=== PATIENT | female | born 1930 | race Two or more races ===

== ENCOUNTER 2016-12-28 05:47 | Inpatient (IN) | payer MEDICARE, OTHER ==
[~2016-12-28] VITALS: Ht 160 cm; Wt 61.5 kg
[2016-12-28] VITALS (17 sets, daily range): BP systolic 137–194; BP diastolic 65–95
[~2016-12-28 05:47] MED LIST: ACET-704 PO; AMIT25TA PO; ANAS1TAB3 PO; ASPI-482 PO; CALC1TAB PO; CLIN300C86 PO; CLOP75TA PO; DOCU100T5 PO; FAMO40TA57 PO; FERR325C PO; FURO-69 PO; INSU100V31 SQ; INSU100V8 SQ; LEVO50TA PO; LINA5TAB PO; LINE600T PO; LISI2.5T PO; LORA10TA3 PO; METF500T4 PO; MUPI15CR TP; PREG50CA PO
[2016-12-28] MEDS ORDERED: IV NORMAL SALINE 1000ML BAG 1,000 ML IV SCH (06:15)
--- NOTE | 2016-12-28 06:17 | PHYS DOC ---
Past Medical History Past Medical History: Arthritis, Cancer, Diabetes-Type II, Hyperthyroid Additional Past Medical Histor: PVD, glaucoma Past Surgical History: Cholecystectomy Additional Past Surgical Histo: Lt mastectomy, stents to bilat LE, toe amputations both feet Alcohol Use: None Drug Use: None Adult General Chief Complaint Chief Complaint: SHORTNESS OF BREATH HPI HPI Patient is a 86 year old female who presents with complaint of shortness of breath that started suddenly this morning. Patient came to the emergency department by EMS. The patient states that the symptoms came on suddenly. Patient has not had any fevers or productive cough. Patient is currently having significant difficulty breathing. Patient denies any chest pain. Patient has history of type 2 diabetes mellitus, peripheral vascular disease, and history of recent myocardial infarction. Patient is also on Lasix therapy which she has been receiving for the past 6 months. Patient has had increasing swelling in the lower extremities over the past few days. Patient has not had any recent medication changes. Patient's symptoms worsen when she lays flat. Review of Systems Review of Systems Constitutional: Denies fever or chills [] Eyes: Denies change in visual acuity, redness, or eye pain [] HENT: Denies nasal congestion or sore throat [] Respiratory: Shortness of breath, orthopnea [] Cardiovascular: Edema, denies chest pain [] GI: Denies abdominal pain, nausea, vomiting, bloody stools or diarrhea [] : Denies dysuria or hematuria [] Musculoskeletal: Denies back pain or joint pain [] Integument: Denies rash or skin lesions [] Neurologic: Denies headache, focal weakness or sensory changes [] Current Medications Current Medications Current Medications Medications (Trade) Dose Ordered Sig/Iftikhar Start Time Stop Time Status Last Admin Dose Admin Furosemide (Lasix) 80 mg 1X ONCE 12/28/16 06:30 12/28/16 06:31 DC 12/28/16 06:47 80 MG Nitroglycerin/ Dextrose (Nitroglycerin Drip) 250 ml @ 0 mls/hr CONT PRN 12/28/16 06:15 12/28/16 06:48 0 MLS/HR Sodium Chloride 1,000 ml @ 100 mls/hr Q10H 12/28/16 06:15 12/28/16 16:14 12/28/16 06:47 100 MLS/HR Allergies Allergies Allergies Coded Allergies Type Severity Reaction Last Updated Verified No Known Drug Allergies 11/21/15 No Physical Exam Physical Exam Constitutional: Alert, afebrile, appears in mild to moderate respiratory distress. [] HENT: Normocephalic, atraumatic, bilateral external ears normal, oropharynx moist, no oral exudates, nose normal. [] Eyes: PERRLA, EOMI, conjunctiva normal, no discharge. [] Neck: Normal range of motion, no tenderness, supple, no stridor. [] Cardiovascular: Tachycardia, regular rhythm, no murmur [] Lungs & Thorax: Mild to moderate restrictive movement bilaterally, rales bilaterally, no wheezes [] Abdomen: Bowel sounds normal, soft, no tenderness, no masses, no pulsatile masses. [] Skin: Warm, dry, no erythema, no rash. [] Back: No tenderness, no CVA tenderness. [] Extremities: No tenderness, no cyanosis, no clubbing, ROM intact, 2+ pitting edema in the bilateral lower extremities. [] Neurologic: Alert and oriented X 3, normal motor function, normal sensory function, no focal deficits noted. [] Current Patient Data Vital Signs Vital Signs Date Time Temp Pulse Resp B/P Pulse Ox O2 Delivery O2 Flow Rate FiO2 12/28/16 06:11 98.3 97 32 188/103 91 Nasal Cannula 2 98.3 Lab Values Laboratory Tests Test 12/28/16 06:00 12/28/16 06:10 12/28/16 06:30 White Blood Count 13.3x10^3/uL (4.0-11.0) H Red Blood Count 4.11x10^6/uL (3.50-5.40) Hemoglobin 11.1g/dL (12.0-15.5) L Hematocrit 34.7% (36.0-47.0) L Mean Corpuscular Volume 84fL (79-100) Mean Corpuscular Hemoglobin 27pg (25-35) Mean Corpuscular Hemoglobin Concent 32g/dL (31-37) Red Cell Distribution Width 17.0% (11.5-14.5) H Platelet Count 352x10^3/uL (140-400) Neutrophils (%) (Auto) 84% (31-73) H Lymphocytes (%) (Auto) 9% (24-48) L Monocytes (%) (Auto) 5% (0-9) Eosinophils (%) (Auto) 2% (0-3) Basophils (%) (Auto) 1% (0-3) Neutrophils # (Auto) 11.2x10^3uL (1.8-7.7) H Lymphocytes # (Auto) 1.2x10^3/uL (1.0-4.8) Monocytes # (Auto) 0.7x10^3/uL (0.0-1.1) Eosinophils # (Auto) 0.2x10^3/uL (0.0-0.7) Basophils # (Auto) 0.1x10^3/uL (0.0-0.2) Sodium Level 137mmol/L (136-145) Potassium Level 4.3mmol/L (3.5-5.1) Chloride Level 102mmol/L (98-107) Carbon Dioxide Level 28mmol/L (21-32) Anion Gap 7 (6-14) Blood Urea Nitrogen 21mg/dL (7-20) H Creatinine 0.8mg/dL (0.6-1.0) Estimated GFR (Cockcroft-Gault) 68.3 BUN/Creatinine Ratio 26 (6-20) H Glucose Level 296mg/dL (70-99) H Calcium Level 9.2mg/dL (8.5-10.1) Total Bilirubin 0.4mg/dL (0.2-1.0) Aspartate Amino Transferase (AST) 19U/L (15-37) Alanine Aminotransferase (ALT) 25U/L (14-59) Alkaline Phosphatase 138U/L (46-116) H Creatine Kinase 61U/L (26-192) Creatine Kinase MB (Mass) 1.4ng/mL (0.0-3.6) Creatine Kinase MB Relative Index % (0-4) Troponin I Quantitative 0.119ng/mL (0.000-0.055) JF-Zsn-O-Type Natriuretic Peptide 7778pg/mL (0-449) H Total Protein 7.4g/dL (6.4-8.2) Albumin 2.8g/dL (3.4-5.0) L Albumin/Globulin Ratio 0.6 (1.0-1.7) L O2 Saturation 93% (92-99) Arterial Blood pH 7.47 (7.35-7.45) H Arterial Blood pCO2 at Patient Temp 32mmHg (35-46) L Arterial Blood pO2 at Patient Temp 66mmHg (65-108) Arterial Blood HCO3 22mmol/L (21-28) Arterial Blood Base Excess -0mmol/L (-3-3) FiO2 32 Influenza Type A Antigen Negative (NEGATIVE) Influenza Type B Antigen Negative (NEGATIVE) Laboratory Tests 12/28/16 06:00 Laboratory Tests 12/28/16 06:00 EKG EKG Interpreted by me: Heart rate 98, sinus tachycardia, normal intervals, normal axis, no acute ST/T-wave abnormalities present [] Radiology/Procedures Radiology/Procedures [facility] [address] [place] [address] IMAGING REPORT Signed PATIENT: LUCI PALMER ACCOUNT: [id number] : 1930 LOCATION: ED HOLD AGE: 86 SEX: F EXAM STATUS: ADM IN ORD. PHYSICIAN: ARGENTINA MCNAMARA MD REASON: shortness of breath PROCEDURE: PORTABLE CHEST 1V Single view chest History:shortness of breath . An AP view of the chest is submitted. Comparison: 12/10/2016. Findings: There has been development of patchy airspace opacity at bilateral lung bases with increased interstitial opacity, also suspected small right pleural effusion. Pericardial cardiac silhouette is similar. There is atherosclerotic calcification near aortic arch. Central pulmonary vasculature is more prominent. Impression: There has been development of bibasilar airspace opacity greater on the right which may be due to edema, also likely increased interstitial edema and small right pleural effusion. Constellation of findings could be due to left ventricular failure. DICTATED and SIGNED BY: YU SOLOMON MD DATE: 12/28/16 0732 CC: ARGENTINA MCNAMARA MD; SAM ALEXANDER MD ~ [] Course & Med Decision Making Course & Med Decision Making Pertinent Labs and Imaging studies reviewed. (See chart for details) Patient was started on an IV nitroglycerin drip and given 80 mg of IV Lasix. On reevaluation, patient's respiratory distress has improved. Patient's chest x- rays consistent with acute on chronic congestive heart failure. The patient will need to be admitted for diuresis and blood pressure control. I spoke with Dr. Trujillo who is on-call for Dr. Alexander and he accepted care of patient in hospital. Critical care time excluding procedures: 45 minutes Dragon Disclaimer Dragon Disclaimer This electronic medical record was generated, in whole or in part, using a voice recognition dictation system. Departure Departure Impression: Primary Impression: Acute on chronic congestive heart failure Additional Impressions: Pulmonary edema Acute respiratory distress Hypoxia Malignant hypertension Type 2 diabetes mellitus Severe protein-calorie malnutrition Disposition: ADMITTED INPATIENT Admitting Physician: Sam Alexander Condition: GUARDED Referrals: SAM ALEXANDER MD (PCP) Problem Qualifiers Primary Impression: Acute on chronic congestive heart failure Congestive heart failure type: unspecified congestive heart failure type Qualified Code: I50.9 - Heart failure, unspecified Additional Impressions: Pulmonary edema Chronicity: acute Qualified Code: J81.0 - Acute pulmonary edema Type 2 diabetes mellitus Diabetes mellitus complication status: with hyperglycemia Diabetes mellitus mcc insulin use: unspecified predatory animal exterminator insulin use status Qualified Code : E11.65 - Type 2 diabetes mellitus with hyperglycemia ARGENTINA MCNAMARA MD Dec 28, 2016 06:17
[2016-12-28 06:29] LABS: BASO # 0.1 x10^3/uL (0.0-0.2); BASO % 1 % (0-3); EOS % 2 % (0-3); HEMATOCRIT 34.7 % (36.0-47.0); HEMOGLOBIN 11.1 g/dL (12.0-15.5); LYMPH # 1.2 x10^3/uL (1.0-4.8); LYMPH % 9 % (24-48); MEAN CORPUSCULAR HEMOGLOBIN 27 pg (25-35); MEAN CORPUSCULAR HGB CONC 32 g/dL (31-37); MEAN CORPUSCULAR VOLUME 84 fL (79-100); MONO % 5 % (0-9); NEUT % 84 % (31-73); PLATELET COUNT 352 x10^3/uL (140-400); RED BLOOD COUNT 4.11 x10^6/uL (3.50-5.40); WHITE BLOOD COUNT 13.3 x10^3/uL (4.0-11.0)
[2016-12-28] MEDS ORDERED: FUROSEMIDE 40 MG/4 ML VIAL IVP ONE ×2 (06:30→23:15)
[2016-12-28 06:34] LABS: CALCIUM 9.2 mg/dL (8.5-10.1); CREATININE 0.8 mg/dL (0.6-1.0); GFR 68.3; POTASSIUM 4.3 mmol/L (3.5-5.1)
[2016-12-28 06:38] LABS: PCO2 ABG 32 mmHg (35-46); PH ABG 7.47 (7.35-7.45)
[2016-12-28 06:39] LABS: ALLEN TEST positive; HCO3 ABG 22 mmol/L (21-28); PO2 ABG 66 mmHg (65-108); SAT O2 ABG 93 % (92-99)
[2016-12-28 06:40] LABS: FIO2 ABG 32
[2016-12-28 06:41] LABS: ALBUMIN 2.8 g/dL (3.4-5.0); ALBUMIN/GLOBULIN RATIO 0.6 (1.0-1.7); TOTAL BILIRUBIN 0.4 mg/dL (0.2-1.0); TOTAL PROTEIN 7.4 g/dL (6.4-8.2)
[2016-12-28] MEDS ORDERED: ONDANSETRON PF 4 MG/2 ML VIAL. IV PRN (06:45)
[2016-12-28] MEDS ORDERED: ACETAMINOPHEN 325 MG TABLET. PO PRN (06:45)
[2016-12-28] MEDS: NITROGLYCERIN PREMIX 250 ML IV PRN (06:48)
[2016-12-28 06:50] LABS: CKMB MASS 1.4 ng/mL (0.0-3.6); CREATINE KINASE 61 U/L (26-192)
--- NOTE | 2016-12-28 07:37 | RAD ---
Single view chest History:shortness of breath . An AP view of the chest is submitted. Comparison: 12/10/2016. Findings: There has been development of patchy airspace opacity at bilateral lung bases with increased interstitial opacity, also suspected small right pleural effusion. Pericardial cardiac silhouette is similar. There is atherosclerotic calcification near aortic arch. Central pulmonary vasculature is more prominent. Impression: There has been development of bibasilar airspace opacity greater on the right which may be due to edema, also likely increased interstitial edema and small right pleural effusion. Constellation of findings could be due to left ventricular failure.
[2016-12-28 07:52] LABS: OBC FLU VALID
--- NOTE | 2016-12-28 08:17 | ACF ---
Admit Criteria Forms Admit Criteria Forms Admit Criteria Forms HEART FAILURE: COMMON COMPLICATIONS Clinical Indications for Inpatient Care (Place 'X' for any and all applicable criteria): Ongoing inpatient care may be indicated for heart failure with ANY ONE of the following (1)(2)(3)(4)(5): [ ]I. Ongoing need for care for primary condition requiring frequent therapy adjustments because of changes in cardiac function (eg, drug dosage changes for drugs that are renally metabolized) [ ]II. New-onset heart failure [ ]III. Heart failure with decreased urine output not responsive to attempts to optimize volume status [ ]IV. Acute cardiac ischemia causing or associated with failure [X]V. Complications of heart failure, including ANY ONE of the following: [ ]a) Pericardial effusion [ ]b) Symptomatic pleural effusion [ ]c) O2 saturation <90% or PO2 < 60 mm Hg (8.0 kPa) on room air or require baseline supplemental O2 [ ]d) Tachypnea [X]e) Dyspnea [ ]f) Syncope [ ]g) Change in mental status [ ]h) Acute renal insufficiency that is severe (reduction of more than 50% in estimated glomerular filtration rate from baseline) or progressive reduction of more than 25% in estimated glomerular filtration rate from baseline, with creatinine continuing to rise) [ ]i) Hemodynamic instability [ ]j) Anasarca [ ]k) Clinically significant metabolic abnormalities due to heart failure (eg, new-onset metabolic acidosis) Extended stay beyond goal length of stay for primary condition may be needed until ALL of the following are present(1)(3): [ ]a) Stable and effective diuretic regimen established (or patient on stable dialysis regimen if in chronic renal failure) [ ]b) Breathing comfortably at rest [ ]c) Saturation of arterial oxygen greater than 90% or at acceptable baseline [ ]d) Pulmonary edema absent or improved [ ]e) Hemodynamic stability [ ]f) Volume status acceptable on oral medication [ ]g) Peripheral or sacral edema absent or improved [ ]h) Renal function stable and manageable at a lower level of care [ ]i) Complications (eg, pleural effusion) resolved or manageable at a lower level of care [ ]j) Patient or caregiver has received written discharge instructions or educational material addressing activity level, diet, discharge medications, follow-up appointment, weight monitoring, and what to do if symptoms worsen The original [employer] content created by [facility] has been revised. The portions of the content which have been revised are identified through the use of italic text or in bold, and [facility] has neither reviewed nor approved the modified material.All other unmodified content is copyright [email or web address]. Please see references footnoted in the original [facility] [email or web address] edition 2016 LES JOHNSON Dec 28, 2016 08:17
[2016-12-28 08:47] LABS: BILIRUBIN,URINE NEGATIVE (NEG); GLUCOSE,URINE 250 mg/dL (NEG); NITRITE,URINE NEGATIVE (NEG); PROTEIN,URINE 30 mg/dL (NEG-TRACE); UROBILINOGEN,URINE 0.2 mg/dL (0.2 mg/dL)
[2016-12-28 08:51] LABS: BACTERIA,URINE 0 /HPF (0-FEW); RBC,URINE 0 /HPF (0-2); SQUAMOUS EPITHELIAL CELL,UR FEW /LPF; WBC,URINE 0 /HPF (0-4); YEAST,URINE PRESENT /HPF
[2016-12-28] MEDS ORDERED: ACETAMINOPHEN/CODEINE 300/30MG TABLET PO PRN (13:30)
[2016-12-28] MEDS ORDERED: DOCUSATE SODIUM 100 MG CAPSULE PO PRN (13:30)
--- NOTE | 2016-12-28 13:40 | PDOC ---
Provider Note Provider Note Patient seen. History and Physical dictated. See dictation# [id number] SASHA MEDELLIN MD Dec 28, 2016 13:40
[2016-12-28 14:37] LABS: CKMB INDEX 2.8 % (0-4); CKMB MASS 1.6 ng/mL (0.0-3.6)
--- NOTE | 2016-12-28 15:06 | PDOC ---
CARDIOLOGY PROGRESS NOTE SUBJECTIVE: 86 y.o well known to us presenting with flash pulm edema and hypertensive crisis. Unclear what happened when she went home, but appears to have had PND. She has known 3V CAD, needs left main stenting. OBJECTIVE: Vital SIgns: Vital Signs Date Time Temp Pulse Resp B/P Pulse Ox O2 Delivery O2 Flow Rate FiO2 12/28/16 13:47 90 24 160/76 96 Room Air 3 12/28/16 06:11 98.3 98.3 Objective: Gen: a/o to self only (language barrier) RRR lungs with minimal rales abd soft 2+ edema. CURRENT MEDICATIONS: Current Medications Medications (Trade) Dose Ordered Sig/Iftikhar Start Time Stop Time Status Last Admin Dose Admin Acetaminophen (Tylenol) 650 mg PRN Q4HRS PRN 12/28/16 06:45 12/29/16 06:44 Acetaminophen/ Codeine Phosphate (Tylenol #3) 1 tab PRN Q12HRS PRN 12/28/16 13:30 Amitriptyline HCl (Elavil) 25 mg QHS 12/28/16 21:00 Anastrozole (Arimidex) 1 mg DAILY 12/29/16 09:00 Aspirin (Ecotrin) 81 mg DAILY 12/29/16 09:00 Calcium/Vitamin D (Oscal D 500mg/ 200uts) 1 tab BIDWMEALS 12/28/16 17:00 Cetirizine HCl (Zyrtec) 10 mg DAILY 12/29/16 09:00 Clopidogrel Bisulfate (Plavix) 75 mg DAILYWBKFT 12/29/16 08:00 Docusate Sodium (Colace) 100 mg PRN QEVNG PRN 12/28/16 13:30 Famotidine (Pepcid) 40 mg QHS 12/28/16 21:00 Ferrous Sulfate (Feosol) 650 mg DAILYWBKFT 12/29/16 08:00 Furosemide (Lasix) 40 mg DAILY 12/29/16 09:00 Insulin Aspart (Novolog) 0-8 UNITS TIDBFRMEAL 12/28/16 16:30 Insulin Detemir (Levemir) 30 units QHS 12/28/16 21:00 Levothyroxine Sodium (Synthroid) 50 mcg DAILY06 12/29/16 06:00 Linagliptin (Tradjenta) 5 mg DAILY 12/29/16 09:00 Linezolid (Zyvox) 600 mg BID 12/28/16 21:00 12/28/16 21:00 DC Lisinopril (Prinivil) 2.5 mg DAILY 12/29/16 09:00 Mupirocin (Bactroban) 1 margret TID 12/28/16 21:00 Nitroglycerin/ Dextrose (Nitroglycerin Drip) 250 ml @ 0 mls/hr CONT PRN 12/28/16 06:15 12/28/16 06:48 0 MLS/HR Ondansetron HCl (Zofran) 4 mg PRN Q8HRS PRN 12/28/16 06:45 12/29/16 06:44 Pregabalin (Lyrica) 50 mg BID 12/28/16 21:00 Sodium Chloride 1,000 ml @ 100 mls/hr Q10H 12/28/16 06:15 12/28/16 16:14 12/28/16 06:47 100 MLS/HR DIAGNOSTIC TESTING: Cath - 3V cad with LM involvement EF 45% ASSESSMENT: 1. Flash pulm edema 2. PVD 3. 3V CAD Problems: PLAN: 1. Continue NTG gtt 2. Continue Metoprolol, lisinopril and lasix for BP control. 3. Continue statin. 4. Will plan for likely more expedited PCI on friday depending on other comorbidities. Will follow. LISET DELGADO MD Dec 28, 2016 15:06
[2016-12-28] MEDS: INSULIN ASPART 300 UNITS/3 ML INSULN.PEN SQ SCH ×2 (16:30)
[2016-12-28] MEDS: CALCIUM CARB/VIT D3 500/200 TABLET PO SCH (17:00)
--- NOTE | 2016-12-28 18:51 | EKG ---
[facility] [address] [place] [address] Test Date: 2016-12-28 Test Time: 05:56:08 Pat Name: LUCI PALMER Department: Room: 201 1 Gender: F Physician Practice Manager: JOCY : 1930 Requested By: ARGENTINA MCNAMARA Order Number: [id number] Reading MD: Toña Chopra Measurements Intervals [place] Rate: 98 P: 15 VT: 154 QRS: 29 QRSD: 92 T: 24 QT: 338 QTc: 433 Interpretive Statements SINUS RHYTHM NO SPECIFIC ECG ABNORMALITIES RI6.01 Compared to ECG 12/03/2016 21:21:47 Left-axis deviation no longer present Electronically Signed On 12-29-2016 19:06:02 CANINE SERVICE INSTRUCTOR TRAINER by Toña Chopra
--- NOTE | 2016-12-28 20:36 | PDOC ---
Provider Note Provider Note [id number] dyspnea acute pulm edema cad abnl cxr lasix see orders ARMANDO ORTA MD Dec 28, 2016 20:36
[2016-12-28] MEDS: PREGABALIN 50 MG CAPSULE PO SCH (21:00)
[2016-12-28] MEDS ORDERED: LINEZOLID 600 MG TABLET PO SCH (21:00)
[2016-12-28] MEDS: AMITRIPTYLINE HCL 25 MG TABLET PO SCH (21:00)
[2016-12-28] MEDS: FAMOTIDINE 20 MG TABLET. PO SCH (21:00)
--- NOTE | 2016-12-28 21:21 | CONS ---
DATE OF CONSULTATION: 12/28/2016 I was asked to see this 86-year-old lady for shortness of breath. HISTORY OF PRESENT ILLNESS: The patient does not speak Nigerian. Her son translated for me. The patient discharged from this hospital yesterday after toe amputation secondary to diabetes mellitus, osteomyelitis and peripheral vascular disease. She developed acute onset shortness of breath and chest pain. She did have a cough with not sputum production. She denies fever and/or chills. PAST MEDICAL HISTORY: Hypertension, peripheral vascular disease status post amputation, osteomyelitis and diabetes mellitus. ALLERGIES: No known drug allergies. MEDICATIONS: Currently she is on IV fluid, lisinopril, Tradjenta, Lasix, aspirin, Arimidex, ferrous sulfate, Plavix, levothyroxine, insulin, Pepcid, Lyrica, Elavil and calcium. SOCIAL HISTORY: Positive for smoking as mentioned as above. FAMILY HISTORY: There is no history of lung disease. REVIEW OF SYSTEMS: As mentioned as above, other systems otherwise negative. PHYSICAL EXAMINATION: GENERAL: This is a well-developed lady. VITAL SIGNS: O2 saturation is 96% on 3 liters of oxygen, respiratory rate 22, heart rate 86, blood pressure 148/70, temperature 98. HEENT: Normocephalic, atraumatic. Pupils are equal, round and reactive to light. Throat is clear. Nose is clear. NECK: Positive JVD. No lymphadenopathy. CARDIOVASCULAR: Distant heart sounds, regular rate and rhythm. PMI is nondisplaced. CHEST: Inspection is normal. LUNGS: There are bibasilar crackles, dullness at the bases. ABDOMEN: Soft. Bowel sounds are good. There is no mass. EXTREMITIES: Status post amputation. NEUROLOGIC: Alert and oriented. SKIN: Chronic changes. LYMPHATICS: There is no lymphadenopathy. LABORATORY DATA: I reviewed the following lab data: Chest x-ray shows lower lobe infiltrates/effusion/atelectasis. WBC is 13.3, hemoglobin 11.1, platelets 352. Sodium 137, potassium 4.3, chloride 102, CO2 of 28, glucose 296, BUN 21, creatinine 0.8. Total bili 0.4, AST 19, ALT 25, alkaline phosphatase 138, troponin 0.14. BNP 7778. IMPRESSION: 1. Dyspnea. 2. Acute pulmonary edema. 3. Acute systolic versus diastolic congestive heart failure. 4. Abnormal chest x-ray. 5. Infiltrates/atelectasis/effusion. 6. Coronary artery disease. 7. Peripheral vascular disease. 8. Status post amputation. 9. History of osteomyelitis. 10. Diabetes mellitus. 11. Hypertension. 12. History of breast cancer. 13. Hypothyroidism. PLAN AND RECOMMENDATION: 1. Titrate FiO2 to keep O2 saturation 92%. 2. I agree with Lasix. 3. Signs And Displays Sales Representative has seen the patient. The patient will have cardiac catheterization on Friday. 4. Continue metoprolol and lisinopril. 5. Monitor respiratory status very closely. 6. Lovenox for DVT prophylaxis. Thank you very much for allowing me to participate in care of this very nice lady. The findings and recommendations were discussed with her son and RN. Her son understood and agreed to proceed with the plan. ARMANDO ORTA M.D. DR: JAROCHO/mega JOB#: [id number] / [id number] SHANNON
[2016-12-28] MEDS ORDERED: LABETALOL 20 MG/4 ML DISP.SYRIN. IVP PRN (21:45)
[2016-12-28] MEDS ORDERED: hydrALAZINE 20 MG/ML VIAL. IVP PRN (21:45)
[2016-12-28] MEDS: MUPIROCIN 2 % TOPICAL CREAM 15GM TUBE. TP SCH (21:53)
[2016-12-28] MEDS: INSULIN DETEMIR 300 UNITS/3 ML INSULN.PEN. SQ SCH (21:59)
[2016-12-29] VITALS (19 sets, daily range): BP systolic 106–169; BP diastolic 53–79
[2016-12-29 05:31] LABS: BASO # 0.1 x10^3/uL (0.0-0.2); BASO % 1 % (0-3); EOS % 2 % (0-3); HEMATOCRIT 27.7 % (36.0-47.0); LYMPH # 0.9 x10^3/uL (1.0-4.8); LYMPH % 11 % (24-48); MEAN CORPUSCULAR HEMOGLOBIN 28 pg (25-35); MEAN CORPUSCULAR HGB CONC 33 g/dL (31-37); MEAN CORPUSCULAR VOLUME 85 fL (79-100); MONO % 6 % (0-9); NEUT % 80 % (31-73); PLATELET COUNT 278 x10^3/uL (140-400); RED BLOOD COUNT 3.27 x10^6/uL (3.50-5.40); RED CELL DISTRIBUTION WIDTH 16.9 % (11.5-14.5); WHITE BLOOD COUNT 8.4 x10^3/uL (4.0-11.0)
[2016-12-29 06:07] LABS: ALBUMIN 2.3 g/dL (3.4-5.0); ALBUMIN/GLOBULIN RATIO 0.6 (1.0-1.7); CALCIUM 8.8 mg/dL (8.5-10.1); CREATININE 0.8 mg/dL (0.6-1.0); GFR 68.3; MAGNESIUM 1.7 mg/dL (1.8-2.4); TOTAL BILIRUBIN 0.4 mg/dL (0.2-1.0); TOTAL PROTEIN 5.9 g/dL (6.4-8.2)
[2016-12-29] MEDS: LEVOTHYROXINE 50 MCG TABLET PO SCH (06:17)
--- NOTE | 2016-12-29 06:27 | HP ---
ADMIT DATE: 12/28/2016 SUBJECTIVE: None. HISTORY OF PRESENT ILLNESS: This 86-year-old female who was discharged from the hospital yesterday, went home and was doing fine in the evening, but at about 2:30 in the morning, she woke up with severe dyspnea and coughing and she was brought to the Emergency Room. In the Emergency Room, the patient was noted to be in acute pulmonary edema and was given IV Lasix and is going to be admitted to Intensive Care Unit. REVIEW OF SYSTEMS: At present time, the patient is sleeping, but as per family, she had sudden onset of dyspnea and coughing director pharmacology and prior to that, she was doing okay. She did not have any fever, cold, congestion, dizziness, chest pains, palpitations, nausea, vomiting prior to this episode. She was being treated for osteomyelitis of the foot and multiple other medical problems and was discharged yesterday from the hospital. The patient is sleeping, unable to do systems review, but most of the information was obtained from the family. Other systems reviewed and are negative. The patient recently had osteomyelitis of the left fifth toe and was getting IV antibiotics as well as had amputation of the left fifth toe. PAST MEDICAL HISTORY: As noted earlier, patient was discharged yesterday. She has recently been treated for osteomyelitis of the fifth toe, diabetes mellitus, insulin-dependent type 2, hypertension, hyperlipidemia, anxiety, depression, peripheral vascular disease and cancer of the breast. Her diabetes is brittle. PAST SURGICAL HISTORY: The patient had a mastectomy for breast cancer, had bypass to both lower extremities. She has had partial amputation of the right foot toes as well as left fifth toe amputation. ALLERGIES: None known any. MEDICATIONS: Reviewed, please refer the orders. FAMILY HISTORY: Positive for diabetes, hypertension, peripheral vascular disease. SOCIAL HISTORY: No history of smoking, alcoholism or drug abuse. The patient lives with her daughter. PHYSICAL EXAMINATION: VITAL SIGNS: Temperature 98.3, pulse 97 per minute, respirations 32 per minute, blood pressure 188/103 mmHg. GENERAL: The patient is sleeping, but arousable, weak and tired, in mild distress. HEENT: Partial exam, mild congestion of throat. EYES: Pupils reacting to light. NECK: JVP normal. No thyromegaly. Trachea midline. LUNGS: Decreased dyspnea and increased air entry now. Occasional rales. CARDIOVASCULAR: S1, S2 regular. ABDOMEN: Soft, nontender, no guarding, no rigidity. Bowel sounds present. EXTREMITIES: No edema. The patient has had previous surgery on both feet with amputations. CENTRAL NERVOUS SYSTEM: Sleeping, but arousable. Weak and tired. LABORATORY DATA: WBC count 13.3, hemoglobin 11.1, platelet count is 352,000. Sodium 137, potassium 4.3, BUN 21, creatinine 0.8, glucose 296. BNP 7778. Troponin 0.119. IMPRESSION: 1. Acute pulmonary edema, most likely due to congestive heart failure. 2. Diabetes mellitus type 2, not controlled. 3. Peripheral vascular disease. 4. Glaucoma. 5. Hypertension. 6. Hyperlipidemia. 7. Recent amputation of the left fifth toe for chronic osteomyelitis. The patient has had blockage of the previous bypass graft. PLAN: The patient will be admitted to Intensive Care Unit. Clinically, the patient is improving. Consult Dr. Weathers for pulmonary evaluation and management. Consult Dr. James for Cardiology evaluation and management. Prognosis of this patient is poor. For details, please review the orders. SASHA MEDELLIN MD DR: SERJIO/mega JOB#: [id number] / [id number]
[2016-12-29] MEDS: INSULIN ASPART 300 UNITS/3 ML INSULN.PEN SQ SCH ×6 (07:30→19:37)
--- NOTE | 2016-12-29 07:40 | PDOC ---
PULMONARY PROGRESS NOTES Subjective sob, cough, better, no cp Vitals Vital Signs Date Time Temp Pulse Resp B/P Pulse Ox O2 Delivery O2 Flow Rate FiO2 12/29/16 04:19 115/57 12/29/16 02:33 98.6 80 16 96 Nasal Cannula 2.0 98.6 Comments ros, as mentioned as above other sys otherwise neg ROS: No Nausea General: Alert HEENT: Other (nc at perrl, nose, throat clear) Lungs: Crackles Cardiovascular: S1, S2 Abdomen: Soft, Non-tender Neuro Exam: Alert Extremities: Other (edema) Skin: Warm Labs Laboratory Tests Test 12/28/16 06:00 12/28/16 06:10 12/28/16 06:30 12/28/16 08:30 White Blood Count 13.3x10^3/uL (4.0-11.0) Red Blood Count 4.11x10^6/uL (3.50-5.40) Hemoglobin 11.1g/dL (12.0-15.5) Hematocrit 34.7% (36.0-47.0) Mean Corpuscular Volume 84fL (79-100) Mean Corpuscular Hemoglobin 27pg (25-35) Mean Corpuscular Hemoglobin Concent 32g/dL (31-37) Red Cell Distribution Width 17.0% (11.5-14.5) Platelet Count 352x10^3/uL (140-400) Neutrophils (%) (Auto) 84% (31-73) Lymphocytes (%) (Auto) 9% (24-48) Monocytes (%) (Auto) 5% (0-9) Eosinophils (%) (Auto) 2% (0-3) Basophils (%) (Auto) 1% (0-3) Neutrophils # (Auto) 11.2x10^3uL (1.8-7.7) Lymphocytes # (Auto) 1.2x10^3/uL (1.0-4.8) Monocytes # (Auto) 0.7x10^3/uL (0.0-1.1) Eosinophils # (Auto) 0.2x10^3/uL (0.0-0.7) Basophils # (Auto) 0.1x10^3/uL (0.0-0.2) Sodium Level 137mmol/L (136-145) Potassium Level 4.3mmol/L (3.5-5.1) Chloride Level 102mmol/L (98-107) Carbon Dioxide Level 28mmol/L (21-32) Anion Gap 7 (6-14) Blood Urea Nitrogen 21mg/dL (7-20) Creatinine 0.8mg/dL (0.6-1.0) Estimated GFR (Cockcroft-Gault) 68.3 BUN/Creatinine Ratio 26 (6-20) Glucose Level 296mg/dL (70-99) Calcium Level 9.2mg/dL (8.5-10.1) Total Bilirubin 0.4mg/dL (0.2-1.0) Aspartate Amino Transf (AST/SGOT) 19U/L (15-37) Alanine Aminotransferase (ALT/SGPT) 25U/L (14-59) Alkaline Phosphatase 138U/L (46-116) Creatine Kinase 61U/L (26-192) Creatine Kinase MB (Mass) 1.4ng/mL (0.0-3.6) Creatine Kinase MB Relative Index % (0-4) Troponin I Quantitative 0.119ng/mL (0.000-0.055) XQ-Sew-C-Type Natriuretic Peptide 7778pg/mL (0-449) Total Protein 7.4g/dL (6.4-8.2) Albumin 2.8g/dL (3.4-5.0) Albumin/Globulin Ratio 0.6 (1.0-1.7) O2 Saturation 93% (92-99) Arterial Blood pH 7.47 (7.35-7.45) Arterial Blood pCO2 at Patient Temp 32mmHg (35-46) Arterial Blood pO2 at Patient Temp 66mmHg (65-108) Arterial Blood HCO3 22mmol/L (21-28) Arterial Blood Base Excess -0mmol/L (-3-3) FiO2 32 Influenza Type A Antigen Negative (NEGATIVE) Influenza Type B Antigen Negative (NEGATIVE) Urine Collection Type Unknown Urine Color Yellow Urine Clarity Clear Urine pH 6.0 Urine Specific [place] 1.010 Urine Protein 30mg/dL (NEG-TRACE) Urine Glucose (UA) 250mg/dL (NEG) Urine Ketones (Stick) Negativemg/dL (NEG) Urine Blood Negative (NEG) Urine Nitrite Negative (NEG) Urine Bilirubin Negative (NEG) Urine Urobilinogen Dipstick 0.2mg/dL (0.2 mg/dL) Urine Leukocyte Esterase Trace (NEG) Urine RBC 0/HPF (0-2) Urine WBC 0/HPF (0-4) Urine Squamous Epithelial Cells Few/LPF Urine Bacteria 0/HPF (0-FEW) Urine Yeast Present/HPF Test 12/28/16 13:10 12/28/16 14:37 12/28/16 20:00 12/28/16 21:01 Creatine Kinase 57U/L (26-192) Creatine Kinase MB (Mass) 1.6ng/mL (0.0-3.6) Creatine Kinase MB Relative Index 2.8% (0-4) Troponin I Quantitative 0.147ng/mL (0.000-0.055) 0.117ng/mL (0.000-0.055) Glucose (Fingerstick) 275mg/dL (70-99) 240mg/dL (70-99) Test 12/29/16 05:00 White Blood Count 8.4x10^3/uL (4.0-11.0) Red Blood Count 3.27x10^6/uL (3.50-5.40) Hemoglobin 9.0g/dL (12.0-15.5) Hematocrit 27.7% (36.0-47.0) Mean Corpuscular Volume 85fL (79-100) Mean Corpuscular Hemoglobin 28pg (25-35) Mean Corpuscular Hemoglobin Concent 33g/dL (31-37) Red Cell Distribution Width 16.9% (11.5-14.5) Platelet Count 278x10^3/uL (140-400) Neutrophils (%) (Auto) 80% (31-73) Lymphocytes (%) (Auto) 11% (24-48) Monocytes (%) (Auto) 6% (0-9) Eosinophils (%) (Auto) 2% (0-3) Basophils (%) (Auto) 1% (0-3) Neutrophils # (Auto) 6.7x10^3uL (1.8-7.7) Lymphocytes # (Auto) 0.9x10^3/uL (1.0-4.8) Monocytes # (Auto) 0.5x10^3/uL (0.0-1.1) Eosinophils # (Auto) 0.2x10^3/uL (0.0-0.7) Basophils # (Auto) 0.1x10^3/uL (0.0-0.2) Sodium Level 140mmol/L (136-145) Potassium Level 4.0mmol/L (3.5-5.1) Chloride Level 104mmol/L (98-107) Carbon Dioxide Level 29mmol/L (21-32) Anion Gap 7 (6-14) Blood Urea Nitrogen 20mg/dL (7-20) Creatinine 0.8mg/dL (0.6-1.0) Estimated GFR (Cockcroft-Gault) 68.3 BUN/Creatinine Ratio 25 (6-20) Glucose Level 191mg/dL (70-99) Calcium Level 8.8mg/dL (8.5-10.1) Magnesium Level 1.7mg/dL (1.8-2.4) Total Bilirubin 0.4mg/dL (0.2-1.0) Aspartate Amino Transf (AST/SGOT) 13U/L (15-37) Alanine Aminotransferase (ALT/SGPT) 16U/L (14-59) Alkaline Phosphatase 97U/L (46-116) Total Protein 5.9g/dL (6.4-8.2) Albumin 2.3g/dL (3.4-5.0) Albumin/Globulin Ratio 0.6 (1.0-1.7) Laboratory Tests Test 12/28/16 08:30 12/28/16 13:10 12/28/16 14:37 12/28/16 20:00 Urine Collection Type Unknown Urine Color Yellow Urine Clarity Clear Urine pH 6.0 Urine Specific [place] 1.010 Urine Protein 30mg/dL (NEG-TRACE) Urine Glucose (UA) 250mg/dL (NEG) Urine Ketones (Stick) Negativemg/dL (NEG) Urine Blood Negative (NEG) Urine Nitrite Negative (NEG) Urine Bilirubin Negative (NEG) Urine Urobilinogen Dipstick 0.2mg/dL (0.2 mg/dL) Urine Leukocyte Esterase Trace (NEG) Urine RBC 0/HPF (0-2) Urine WBC 0/HPF (0-4) Urine Squamous Epithelial Cells Few/LPF Urine Bacteria 0/HPF (0-FEW) Urine Yeast Present/HPF Creatine Kinase 57U/L (26-192) Creatine Kinase MB (Mass) 1.6ng/mL (0.0-3.6) Creatine Kinase MB Relative Index 2.8% (0-4) Troponin I Quantitative 0.147ng/mL (0.000-0.055) 0.117ng/mL (0.000-0.055) Glucose (Fingerstick) 275mg/dL (70-99) Test 12/28/16 21:01 12/29/16 05:00 Glucose (Fingerstick) 240mg/dL (70-99) White Blood Count 8.4x10^3/uL (4.0-11.0) Red Blood Count 3.27x10^6/uL (3.50-5.40) Hemoglobin 9.0g/dL (12.0-15.5) Hematocrit 27.7% (36.0-47.0) Mean Corpuscular Volume 85fL (79-100) Mean Corpuscular Hemoglobin 28pg (25-35) Mean Corpuscular Hemoglobin Concent 33g/dL (31-37) Red Cell Distribution Width 16.9% (11.5-14.5) Platelet Count 278x10^3/uL (140-400) Neutrophils (%) (Auto) 80% (31-73) Lymphocytes (%) (Auto) 11% (24-48) Monocytes (%) (Auto) 6% (0-9) Eosinophils (%) (Auto) 2% (0-3) Basophils (%) (Auto) 1% (0-3) Neutrophils # (Auto) 6.7x10^3uL (1.8-7.7) Lymphocytes # (Auto) 0.9x10^3/uL (1.0-4.8) Monocytes # (Auto) 0.5x10^3/uL (0.0-1.1) Eosinophils # (Auto) 0.2x10^3/uL (0.0-0.7) Basophils # (Auto) 0.1x10^3/uL (0.0-0.2) Sodium Level 140mmol/L (136-145) Potassium Level 4.0mmol/L (3.5-5.1) Chloride Level 104mmol/L (98-107) Carbon Dioxide Level 29mmol/L (21-32) Anion Gap 7 (6-14) Blood Urea Nitrogen 20mg/dL (7-20) Creatinine 0.8mg/dL (0.6-1.0) Estimated GFR (Cockcroft-Gault) 68.3 BUN/Creatinine Ratio 25 (6-20) Glucose Level 191mg/dL (70-99) Calcium Level 8.8mg/dL (8.5-10.1) Magnesium Level 1.7mg/dL (1.8-2.4) Total Bilirubin 0.4mg/dL (0.2-1.0) Aspartate Amino Transf (AST/SGOT) 13U/L (15-37) Alanine Aminotransferase (ALT/SGPT) 16U/L (14-59) Alkaline Phosphatase 97U/L (46-116) Total Protein 5.9g/dL (6.4-8.2) Albumin 2.3g/dL (3.4-5.0) Albumin/Globulin Ratio 0.6 (1.0-1.7) Medications Active Scripts Medications Dose Route/Sig Days Date Category Clindamycin Hcl 300 Mg Capsule 1 Cap PO TID 12/03/16 Reported Tylenol With Codeine #3 Tablet (Acetaminophen/Codeine Phosphate) 1 Each Tablet 1 Tab PO PRN Q12HRS PRN 12/03/16 Reported Loratadine 10 Mg Tablet 1 Tab PO DAILY 12/03/16 Reported Metformin Hcl 500 Mg Tablet 500 Mg PO BIDWMEALS 12/03/16 Reported Lasix (Furosemide) 20 Mg Tablet 1 Tab PO DAILY 12/03/16 Reported Novolog (Insulin Aspart) 100 Unit/1 Ml Vial 15 Unit SQ TIDBFRMEAL 12/03/16 Reported Lantus (Insulin Glargine,Hum.rec.anlog) 100 Unit/1 Ml Vial 30 Unit SQ HS 12/03/16 Reported Amitriptyline Hcl 25 Mg Tablet 2 Tab PO QHS 12/03/16 Reported Pepcid (Famotidine) 40 Mg Tablet 40 Mg PO HS 12/03/16 Reported Lisinopril 2.5 Mg Tablet 1 Tab PO DAILY 12/03/16 Reported Tradjenta (Linagliptin) 5 Mg Tablet 1 Tab PO DAILY 12/03/16 Reported Clopidogrel (Clopidogrel Bisulfate) 75 Mg Tablet 1 Tab PO DAILY 12/03/16 Reported Synthroid (Levothyroxine Sodium) 50 Mcg Tablet 1 Tab PO DAILY06 12/03/16 Reported Lyrica (Pregabalin) 50 Mg Capsule 1 Cap PO BID 12/03/16 Reported Docusate Sodium 100 Mg Tablet 100 Mg PO PRN QEVNG PRN 12/03/16 Reported Zyvox (Linezolid) 600 Mg Tablet 600 Mg PO BID 12/03/16 Reported Iron (Ferrous Sulfate) 325 Mg Capsule.er 2 Tab PO DAILY 12/03/16 Reported Arimidex (Anastrozole) 1 Mg Tablet 1 Tab PO DAILY 12/03/16 Reported Bactroban Cream (Mupirocin) 15 Gm Cream..g. 1 Joe TP TID 12/03/16 Reported Caltrate 600 + D Tablet (Calcium Carbonate/Vitamin D3) 1 Each Tablet 1 Each PO BID 12/03/16 Reported Aspir 81 (Aspirin) 81 Mg Tablet.dr 1 Tab PO DAILY 12/03/16 Reported Comments cxr reviewed, infilt atelectasis effusion Impression . IMPRESSION: 1. Dyspnea, multifactorial 2. Acute pulmonary edema. 3. Acute systolic versus diastolic congestive heart failure. 4. Abnormal chest x-ray. 5. Infiltrates/atelectasis/effusion. 6. Coronary artery disease. 7. Peripheral vascular disease. 8. Status post amputation. 9. History of osteomyelitis. 10. Diabetes mellitus. 11. Hypertension. 12. History of breast cancer. 13. Hypothyroidism. Plan . PLAN AND RECOMMENDATION: 1. Titrate FiO2 to keep O2 saturation 92%. 2. I agree with Lasix, keep I<O. monitor cr, k 3. Facility Attendant has seen the patient. The patient will have cardiac catheterization on Friday. 4. Continue metoprolol and lisinopril. 5. Monitor respiratory status very closely. 6. Lovenox for DVT prophylaxis. 7. start IS discussed w joseluis montaño TANNAZ MD Dec 29, 2016 07:40
[2016-12-29] MEDS ORDERED: CLOPIDOGREL BISULFATE 75 MG TABLET PO SCH (08:00)
[2016-12-29] MEDS: MUPIROCIN 2 % TOPICAL CREAM 15GM TUBE. TP SCH ×3 (10:27→21:39)
[2016-12-29] MEDS: LISINOPRIL 2.5 MG TABLET PO SCH (10:28)
[2016-12-29] MEDS: FUROSEMIDE 40 MG TABLET PO SCH (10:28)
[2016-12-29] MEDS: ASPIRIN ENTERIC COATED 81 MG TABLET.DR. PO SCH (10:28)
[2016-12-29] MEDS: CALCIUM CARB/VIT D3 500/200 TABLET PO SCH ×2 (10:28→19:33)
[2016-12-29] MEDS: FERROUS SULFATE 325 MG TABLET PO SCH (10:29)
[2016-12-29] MEDS: LINAGLIPTIN 5 MG TABLET PO SCH (10:29)
[2016-12-29] MEDS: CETIRIZINE HCL 10 MG TABLET PO SCH (10:29)
[2016-12-29] MEDS: PREGABALIN 50 MG CAPSULE PO SCH ×2 (10:29→14:16)
[2016-12-29] MEDS: ANASTROZOLE 1 MG TABLET PO SCH (10:35)
[2016-12-29] MEDS ORDERED: CLOPIDOGREL BISULFATE 75 MG TABLET PO ONE (11:00)
[2016-12-29] MEDS ORDERED: MAGNESIUM SULFATE 2GM 50 ML IV ONE (11:00)
--- NOTE | 2016-12-29 13:05 | PDOC ---
IM PROGRESS NOTES- Subjective Subjective had dyspnea last night with BP 199/96- received IV Lasix. Sleeping.unable to do systems review. Objective Vitals Vital Signs Date Time Temp Pulse Resp B/P Pulse Ox O2 Delivery O2 Flow Rate FiO2 12/29/16 10:28 78 119/53 12/29/16 07:00 98.4 14 95 Nasal Cannula 2.0 98.4 Input & Output Intake and Output 12/29/16 07:00 Intake Total 1000 ml Balance 1000 ml Intake IV Total 1000 ml # Voids 4 # Bowel Movements 2 Physical Exam Physical Exam General appearance - sleeping,well appearing, and in no distress Head - normal Chest - decreased BS at bases with occasional rales Heart - S1 and S2 normal Abdomen - soft, nontender, nondistended, no masses or organomegaly Neurological - alert and oriented Musculoskeletal - no muscular tenderness noted Extremities - no pedal edema Skin - warm and dry Labs Laboratory Tests Test 12/28/16 06:00 12/28/16 06:10 12/28/16 06:30 12/28/16 08:30 White Blood Count 13.3x10^3/uL (4.0-11.0) Red Blood Count 4.11x10^6/uL (3.50-5.40) Hemoglobin 11.1g/dL (12.0-15.5) Hematocrit 34.7% (36.0-47.0) Mean Corpuscular Volume 84fL (79-100) Mean Corpuscular Hemoglobin 27pg (25-35) Mean Corpuscular Hemoglobin Concent 32g/dL (31-37) Red Cell Distribution Width 17.0% (11.5-14.5) Platelet Count 352x10^3/uL (140-400) Neutrophils (%) (Auto) 84% (31-73) Lymphocytes (%) (Auto) 9% (24-48) Monocytes (%) (Auto) 5% (0-9) Eosinophils (%) (Auto) 2% (0-3) Basophils (%) (Auto) 1% (0-3) Neutrophils # (Auto) 11.2x10^3uL (1.8-7.7) Lymphocytes # (Auto) 1.2x10^3/uL (1.0-4.8) Monocytes # (Auto) 0.7x10^3/uL (0.0-1.1) Eosinophils # (Auto) 0.2x10^3/uL (0.0-0.7) Basophils # (Auto) 0.1x10^3/uL (0.0-0.2) Sodium Level 137mmol/L (136-145) Potassium Level 4.3mmol/L (3.5-5.1) Chloride Level 102mmol/L (98-107) Carbon Dioxide Level 28mmol/L (21-32) Anion Gap 7 (6-14) Blood Urea Nitrogen 21mg/dL (7-20) Creatinine 0.8mg/dL (0.6-1.0) Estimated GFR (Cockcroft-Gault) 68.3 BUN/Creatinine Ratio 26 (6-20) Glucose Level 296mg/dL (70-99) Calcium Level 9.2mg/dL (8.5-10.1) Total Bilirubin 0.4mg/dL (0.2-1.0) Aspartate Amino Transf (AST/SGOT) 19U/L (15-37) Alanine Aminotransferase (ALT/SGPT) 25U/L (14-59) Alkaline Phosphatase 138U/L (46-116) Creatine Kinase 61U/L (26-192) Creatine Kinase MB (Mass) 1.4ng/mL (0.0-3.6) Creatine Kinase MB Relative Index % (0-4) Troponin I Quantitative 0.119ng/mL (0.000-0.055) NV-Mdo-X-Type Natriuretic Peptide 7778pg/mL (0-449) Total Protein 7.4g/dL (6.4-8.2) Albumin 2.8g/dL (3.4-5.0) Albumin/Globulin Ratio 0.6 (1.0-1.7) O2 Saturation 93% (92-99) Arterial Blood pH 7.47 (7.35-7.45) Arterial Blood pCO2 at Patient Temp 32mmHg (35-46) Arterial Blood pO2 at Patient Temp 66mmHg (65-108) Arterial Blood HCO3 22mmol/L (21-28) Arterial Blood Base Excess -0mmol/L (-3-3) FiO2 32 Influenza Type A Antigen Negative (NEGATIVE) Influenza Type B Antigen Negative (NEGATIVE) Urine Collection Type Unknown Urine Color Yellow Urine Clarity Clear Urine pH 6.0 Urine Specific [place] 1.010 Urine Protein 30mg/dL (NEG-TRACE) Urine Glucose (UA) 250mg/dL (NEG) Urine Ketones (Stick) Negativemg/dL (NEG) Urine Blood Negative (NEG) Urine Nitrite Negative (NEG) Urine Bilirubin Negative (NEG) Urine Urobilinogen Dipstick 0.2mg/dL (0.2 mg/dL) Urine Leukocyte Esterase Trace (NEG) Urine RBC 0/HPF (0-2) Urine WBC 0/HPF (0-4) Urine Squamous Epithelial Cells Few/LPF Urine Bacteria 0/HPF (0-FEW) Urine Yeast Present/HPF Test 12/28/16 13:10 12/28/16 14:37 12/28/16 20:00 12/28/16 21:01 Creatine Kinase 57U/L (26-192) Creatine Kinase MB (Mass) 1.6ng/mL (0.0-3.6) Creatine Kinase MB Relative Index 2.8% (0-4) Troponin I Quantitative 0.147ng/mL (0.000-0.055) 0.117ng/mL (0.000-0.055) Glucose (Fingerstick) 275mg/dL (70-99) 240mg/dL (70-99) Test 12/29/16 05:00 12/29/16 09:38 White Blood Count 8.4x10^3/uL (4.0-11.0) Red Blood Count 3.27x10^6/uL (3.50-5.40) Hemoglobin 9.0g/dL (12.0-15.5) Hematocrit 27.7% (36.0-47.0) Mean Corpuscular Volume 85fL (79-100) Mean Corpuscular Hemoglobin 28pg (25-35) Mean Corpuscular Hemoglobin Concent 33g/dL (31-37) Red Cell Distribution Width 16.9% (11.5-14.5) Platelet Count 278x10^3/uL (140-400) Neutrophils (%) (Auto) 80% (31-73) Lymphocytes (%) (Auto) 11% (24-48) Monocytes (%) (Auto) 6% (0-9) Eosinophils (%) (Auto) 2% (0-3) Basophils (%) (Auto) 1% (0-3) Neutrophils # (Auto) 6.7x10^3uL (1.8-7.7) Lymphocytes # (Auto) 0.9x10^3/uL (1.0-4.8) Monocytes # (Auto) 0.5x10^3/uL (0.0-1.1) Eosinophils # (Auto) 0.2x10^3/uL (0.0-0.7) Basophils # (Auto) 0.1x10^3/uL (0.0-0.2) Sodium Level 140mmol/L (136-145) Potassium Level 4.0mmol/L (3.5-5.1) Chloride Level 104mmol/L (98-107) Carbon Dioxide Level 29mmol/L (21-32) Anion Gap 7 (6-14) Blood Urea Nitrogen 20mg/dL (7-20) Creatinine 0.8mg/dL (0.6-1.0) Estimated GFR (Cockcroft-Gault) 68.3 BUN/Creatinine Ratio 25 (6-20) Glucose Level 191mg/dL (70-99) Calcium Level 8.8mg/dL (8.5-10.1) Magnesium Level 1.7mg/dL (1.8-2.4) Total Bilirubin 0.4mg/dL (0.2-1.0) Aspartate Amino Transf (AST/SGOT) 13U/L (15-37) Alanine Aminotransferase (ALT/SGPT) 16U/L (14-59) Alkaline Phosphatase 97U/L (46-116) Total Protein 5.9g/dL (6.4-8.2) Albumin 2.3g/dL (3.4-5.0) Albumin/Globulin Ratio 0.6 (1.0-1.7) Glucose (Fingerstick) 145mg/dL (70-99) Laboratory Tests Test 12/28/16 13:10 12/28/16 14:37 12/28/16 20:00 12/28/16 21:01 Creatine Kinase 57U/L (26-192) Creatine Kinase MB (Mass) 1.6ng/mL (0.0-3.6) Creatine Kinase MB Relative Index 2.8% (0-4) Troponin I Quantitative 0.147ng/mL (0.000-0.055) 0.117ng/mL (0.000-0.055) Glucose (Fingerstick) 275mg/dL (70-99) 240mg/dL (70-99) Test 12/29/16 05:00 12/29/16 09:38 White Blood Count 8.4x10^3/uL (4.0-11.0) Red Blood Count 3.27x10^6/uL (3.50-5.40) Hemoglobin 9.0g/dL (12.0-15.5) Hematocrit 27.7% (36.0-47.0) Mean Corpuscular Volume 85fL (79-100) Mean Corpuscular Hemoglobin 28pg (25-35) Mean Corpuscular Hemoglobin Concent 33g/dL (31-37) Red Cell Distribution Width 16.9% (11.5-14.5) Platelet Count 278x10^3/uL (140-400) Neutrophils (%) (Auto) 80% (31-73) Lymphocytes (%) (Auto) 11% (24-48) Monocytes (%) (Auto) 6% (0-9) Eosinophils (%) (Auto) 2% (0-3) Basophils (%) (Auto) 1% (0-3) Neutrophils # (Auto) 6.7x10^3uL (1.8-7.7) Lymphocytes # (Auto) 0.9x10^3/uL (1.0-4.8) Monocytes # (Auto) 0.5x10^3/uL (0.0-1.1) Eosinophils # (Auto) 0.2x10^3/uL (0.0-0.7) Basophils # (Auto) 0.1x10^3/uL (0.0-0.2) Sodium Level 140mmol/L (136-145) Potassium Level 4.0mmol/L (3.5-5.1) Chloride Level 104mmol/L (98-107) Carbon Dioxide Level 29mmol/L (21-32) Anion Gap 7 (6-14) Blood Urea Nitrogen 20mg/dL (7-20) Creatinine 0.8mg/dL (0.6-1.0) Estimated GFR (Cockcroft-Gault) 68.3 BUN/Creatinine Ratio 25 (6-20) Glucose Level 191mg/dL (70-99) Calcium Level 8.8mg/dL (8.5-10.1) Magnesium Level 1.7mg/dL (1.8-2.4) Total Bilirubin 0.4mg/dL (0.2-1.0) Aspartate Amino Transf (AST/SGOT) 13U/L (15-37) Alanine Aminotransferase (ALT/SGPT) 16U/L (14-59) Alkaline Phosphatase 97U/L (46-116) Total Protein 5.9g/dL (6.4-8.2) Albumin 2.3g/dL (3.4-5.0) Albumin/Globulin Ratio 0.6 (1.0-1.7) Glucose (Fingerstick) 145mg/dL (70-99) Meds Current Medications Acetaminophen/ Codeine Phosphate (Tylenol #3) 1 tab PRN Q12HRS PRN PO PAIN; Start 12/28/16 at 13:30 Amitriptyline HCl (Elavil) 25 mg QHS PO Last administered on 12/28/16 21:00; Start 12/28/16 at 21:00 Anastrozole (Arimidex) 1 mg DAILY PO Last administered on 12/29/16 10:35; Start 12/29/16 at 09:00 Aspirin (Ecotrin) 81 mg DAILY PO Last administered on 12/29/16 10:28; Start at 09:00 Calcium/Vitamin D (Oscal D 500mg/ 200uts) 1 tab BIDWMEALS PO Last administered on 12/29/16 10:28; Start 12/28/16 at 17:00 Cetirizine HCl (Zyrtec) 10 mg DAILY PO Last administered on 12/29/16 10:29; Start 12/29/16 at 09:00 Clopidogrel Bisulfate (Plavix) 75 mg DAILYWBKFT PO Last administered on 10:29; Start 12/29/16 at 08:00; Stop 12/29/16 at 10:52; Status DC Clopidogrel Bisulfate (Plavix) 75 mg DAILYWBKFT PO ; Start 12/30/16 at 08:00 Clopidogrel Bisulfate (Plavix) 300 mg 1X ONCE PO ; Start 12/29/16 at 11:00; Stop 12/29/16 at 11:01; Status DC Docusate Sodium (Colace) 100 mg PRN QEVNG PRN PO CONSTIPATION; Start 12/28/16 at 13:30 Enoxaparin Sodium (Lovenox 40mg Syringe) 40 mg Q24H SQ ; Start 12/29/16 at 15:00 Famotidine (Pepcid) 40 mg QHS PO Last administered on 12/28/16 21:00; Start at 21:00 Ferrous Sulfate (Feosol) 650 mg DAILYWBKFT PO Last administered on 12/29/16 10 :29; Start 12/29/16 at 08:00 Furosemide (Lasix) 40 mg DAILY PO Last administered on 12/29/16 10:28; Start 12/29/16 at 09:00 Furosemide 40 mg 40 mg 1X ONCE IVP Last administered on 12/28/16 23:13; Start 12/28/16 at 23:15; Stop 12/28/16 at 23:16; Status DC Hydralazine HCl (Apresoline) 10 mg PRN Q4HRS PRN IVP ELEVATED BP, SEE COMMENTS ; Start 12/28/16 at 21:45 Insulin Aspart (Novolog) 0-8 UNITS TIDBFRMEAL SQ ; Start 12/28/16 at 16:30 Insulin Aspart (Novolog) 15 units TIDBFRMEAL SQ ; Start 12/28/16 at 16:30 Insulin Detemir (Levemir) 30 units QHS SQ Last administered on 12/28/16 21:59 ; Start 12/28/16 at 21:00 Labetalol HCl (Normodyne) 10 mg PRN Q4HRS PRN IVP HYPERTENSION, SEE COMMENTS Last administered on 12/28/16 21:53; Start 12/28/16 at 21:45 Levothyroxine Sodium (Synthroid) 50 mcg DAILY06 PO Last administered on 06:17; Start 12/29/16 at 06:00 Linagliptin (Tradjenta) 5 mg DAILY PO Last administered on 12/29/16 10:29; Start 12/29/16 at 09:00 Linezolid (Zyvox) 600 mg BID PO ; Start 12/28/16 at 21:00; Stop 12/28/16 at 21: 00; Status DC Lisinopril (Prinivil) 2.5 mg DAILY PO Last administered on 12/29/16 10:28; Start 12/29/16 at 09:00 Magnesium Sulfate/ Dextrose (Magnesium Sulfate PREMIX 2GM) 50 ml @ 25 mls/hr 1X ONCE IV ; Start 12/29/16 at 11:00; Stop 12/29/16 at 12:59; Status DC Mupirocin (Bactroban) 1 margret TID TP Last administered on 12/29/16 10:27; Start 12/28/16 at 21:00 Pregabalin (Lyrica) 50 mg BID PO Last administered on 12/29/16 10:29; Start at 21:00 Assessment Assessment 1. Acute pulmonary edema, most likely due to congestive heart failure. 2. Diabetes mellitus type 2, not controlled. 3. Peripheral vascular disease. 4. Glaucoma. 5. Hypertension. 6. Hyperlipidemia. 7. Recent amputation of the left fifth toe for chronic osteomyelitis. The patient has had blockage of the previous bypass graft. PLAN: The patient will be admitted to Intensive Care Unit. Clinically, the patient is improving. Consult Dr. Weathers for pulmonary evaluation and management. Consult Dr. James for Cardiology evaluation and management. Prognosis of this patient is poor. For details, please review the orders. Malignant hypertension- improving. Leukocytosis- improving. Mild elevation of Troponin- 0.117 ? myocardial strain. DM not controlled- 275-240. Hypomagnesemia- 1.7- replace. Plan Plan For more details regarding further plans, please refer to the orders. SASHA MEDELLIN MD Dec 29, 2016 13:05
[2016-12-29] MEDS: ENOXAPARIN 40 MG/0.4 ML DISP.SYRIN. SQ SCH (14:17)
[2016-12-29] MEDS: NITROGLYCERIN PREMIX 250 ML IV PRN (14:18)
[2016-12-29] MEDS: VANCOMYCIN 125 MG/2.5 ML ORAL SOLUTION. PO SCH ×2 (19:33→21:38)
[2016-12-29] MEDS: AMITRIPTYLINE HCL 25 MG TABLET PO SCH (21:39)
[2016-12-29] MEDS: FAMOTIDINE 20 MG TABLET. PO SCH (21:39)
[2016-12-29] MEDS: INSULIN DETEMIR 300 UNITS/3 ML INSULN.PEN. SQ SCH (21:44)
[2016-12-30] VITALS (18 sets, daily range): BP systolic 104–177; BP diastolic 58–84
[2016-12-30 05:53] LABS: BASO # 0.1 x10^3/uL (0.0-0.2); BASO % 1 % (0-3); EOS % 4 % (0-3); HEMATOCRIT 26.7 % (36.0-47.0); LYMPH % 13 % (24-48); MEAN CORPUSCULAR HEMOGLOBIN 28 pg (25-35); MEAN CORPUSCULAR HGB CONC 34 g/dL (31-37); MEAN CORPUSCULAR VOLUME 82 fL (79-100); MONO % 8 % (0-9); NEUT % 74 % (31-73); PLATELET COUNT 295 x10^3/uL (140-400); RED BLOOD COUNT 3.24 x10^6/uL (3.50-5.40); RED CELL DISTRIBUTION WIDTH 16.4 % (11.5-14.5); WHITE BLOOD COUNT 7.8 x10^3/uL (4.0-11.0)
[2016-12-30] MEDS: LEVOTHYROXINE 50 MCG TABLET PO SCH (06:10)
[2016-12-30 06:17] LABS: ALBUMIN 2.3 g/dL (3.4-5.0); ALBUMIN/GLOBULIN RATIO 0.6 (1.0-1.7); CALCIUM 8.7 mg/dL (8.5-10.1); CREATININE 0.9 mg/dL (0.6-1.0); GFR 59.7; POTASSIUM 4.1 mmol/L (3.5-5.1); TOTAL BILIRUBIN 0.3 mg/dL (0.2-1.0); TOTAL PROTEIN 6.1 g/dL (6.4-8.2)
[2016-12-30] MEDS: INSULIN ASPART 300 UNITS/3 ML INSULN.PEN SQ SCH ×6 (07:30→16:30)
[2016-12-30] MEDS ORDERED: DEXTROSE 50% 25 GM / 50ML DISP.SYRIN. IV PRN (08:00)
[2016-12-30] MEDS: MUPIROCIN 2 % TOPICAL CREAM 15GM TUBE. TP SCH ×3 (09:00→20:51)
[2016-12-30] MEDS: NITROGLYCERIN PREMIX 250 ML IV PRN (10:02)
[2016-12-30] MEDS: LINAGLIPTIN 5 MG TABLET PO SCH (11:24)
[2016-12-30] MEDS: CALCIUM CARB/VIT D3 500/200 TABLET PO SCH ×2 (11:24→17:41)
[2016-12-30] MEDS: ASPIRIN ENTERIC COATED 81 MG TABLET.DR. PO SCH (11:24)
[2016-12-30] MEDS: CLOPIDOGREL BISULFATE 75 MG TABLET PO SCH (11:25)
[2016-12-30] MEDS: PREGABALIN 50 MG CAPSULE PO SCH ×2 (11:25→20:51)
[2016-12-30] MEDS: LISINOPRIL 2.5 MG TABLET PO SCH (11:26)
[2016-12-30] MEDS: FERROUS SULFATE 325 MG TABLET PO SCH (11:26)
[2016-12-30] MEDS: CETIRIZINE HCL 10 MG TABLET PO SCH (11:26)
[2016-12-30] MEDS: ANASTROZOLE 1 MG TABLET PO SCH (11:30)
[2016-12-30] MEDS: VANCOMYCIN 125 MG/2.5 ML ORAL SOLUTION. PO SCH ×4 (11:31→20:51)
[2016-12-30] MEDS: FUROSEMIDE 40 MG TABLET PO SCH (11:35)
--- NOTE | 2016-12-30 12:02 | PDOC ---
GARETH BAZAN HAND SUTURE WINDER 12/30/16 1202: CARDIO Progress Notes Date and Time Date of Service 12/30/2016 Time of Evaluation 1200 Subjective Subjective: No Chest Pain, No shortness of breath, No Palpitations, No Dizziness, Other (daughter at the bedside, verbalized compliance with meds; sitting up without complaints) Vitals Vitals Vital Signs Date Time Temp Pulse Resp B/P Pulse Ox O2 Delivery O2 Flow Rate FiO2 12/30/16 11:26 85 152/66 12/30/16 10:42 98.2 16 95 Nasal Cannula 2.0 98.2 Weight Weight [ ] Input and Output Intake and Output Intake and Output 12/30/16 07:00 Intake Total 1090 ml Output Total 600 ml Balance 490 ml Intake Oral 860 ml IV Total 230 ml Output Urine Total 600 ml # Voids 1 # Bowel Movements 1 Laboratory Labs Laboratory Tests Test 12/29/16 12:45 12/29/16 17:00 12/30/16 04:49 12/30/16 07:48 Glucose (Fingerstick) 68mg/dL (70-99) 111mg/dL (70-99) 48mg/dL (70-99) White Blood Count 7.8x10^3/uL (4.0-11.0) Red Blood Count 3.24x10^6/uL (3.50-5.40) Hemoglobin 9.0g/dL (12.0-15.5) Hematocrit 26.7% (36.0-47.0) Mean Corpuscular Volume 82fL (79-100) Mean Corpuscular Hemoglobin 28pg (25-35) Mean Corpuscular Hemoglobin Concent 34g/dL (31-37) Red Cell Distribution Width 16.4% (11.5-14.5) Platelet Count 295x10^3/uL (140-400) Neutrophils (%) (Auto) 74% (31-73) Lymphocytes (%) (Auto) 13% (24-48) Monocytes (%) (Auto) 8% (0-9) Eosinophils (%) (Auto) 4% (0-3) Basophils (%) (Auto) 1% (0-3) Neutrophils # (Auto) 5.7x10^3uL (1.8-7.7) Lymphocytes # (Auto) 1.0x10^3/uL (1.0-4.8) Monocytes # (Auto) 0.6x10^3/uL (0.0-1.1) Eosinophils # (Auto) 0.3x10^3/uL (0.0-0.7) Basophils # (Auto) 0.1x10^3/uL (0.0-0.2) Sodium Level 141mmol/L (136-145) Potassium Level 4.1mmol/L (3.5-5.1) Chloride Level 104mmol/L (98-107) Carbon Dioxide Level 29mmol/L (21-32) Anion Gap 8 (6-14) Blood Urea Nitrogen 17mg/dL (7-20) Creatinine 0.9mg/dL (0.6-1.0) Estimated GFR (Cockcroft-Gault) 59.7 BUN/Creatinine Ratio 19 (6-20) Glucose Level 89mg/dL (70-99) Calcium Level 8.7mg/dL (8.5-10.1) Total Bilirubin 0.3mg/dL (0.2-1.0) Aspartate Amino Transf (AST/SGOT) 19U/L (15-37) Alanine Aminotransferase (ALT/SGPT) 18U/L (14-59) Alkaline Phosphatase 96U/L (46-116) Total Protein 6.1g/dL (6.4-8.2) Albumin 2.3g/dL (3.4-5.0) Albumin/Globulin Ratio 0.6 (1.0-1.7) Test 12/30/16 08:15 Glucose (Fingerstick) 192mg/dL (70-99) Microbiology Micro Microbiology 12/28/16 Urine Culture - Preliminary, Resulted 12/28/16 Urine Culture Result 1 (VERNON) - Preliminary, Resulted Physical Exam HEENT: Neck Supple W Full Motion Chest: Symmetric LUNGS: Other (bibasilar crackles) Heart: S1S2, RRR Extremities: No Calf Tenderness, Other (1-2+ bilateral LE pitting edema) Neurology: alert, oriented, follow commands Assessment Assessment 1. Acute systolic CHF/ischemic cardiomyopathy: compensated. refractory suspect #3 and #5 2. CAD/NSTEMI/3VD 3. Accelerated HTN 4. HLP/DM2 5. Hypoglycemia Recommendations 1. Continue with secondary prevention including DAPT. 2. Pt and family have opt out for any surgeries or PCIs. Reiterated that they want medical treatment 3. Continue with diuretic therapy at higher dosing. 4. Resume home dosing of antiHTN meds, change metoprolol to coreg. 5. Continue with med optimization 6. Avoid tight BG control 7. Informed staff to merge chart under her last name Kwesi FRANCISCO JAVIER SANCHEZ MD 12/30/16 1523: CARDIO Progress Notes Assessment Assessment Patient seen and examined. Agree with FIRE CODE INSPECTOR's assessment and plan. Continue diuresis for acute on chronic systolic heart failure. Blood pressure labile - we will continue to titrate anti-hypertensives for better control. Continue conservative medical management for coronary artery disease per patient's and family's wishes. GARETH BAZAN APRN Dec 30, 2016 12:02 FRANCISCO JAVIER SANCHEZ MD Dec 30, 2016 15:23
--- NOTE | 2016-12-30 14:28 | EKG ---
[facility] [address] [place] [address] Test Date: 2016-12-30 Test Time: 14:10:28 Pat Name: LUCI PALMER Department: Room: ED HOLD 22 Gender: F Licensed Practical Nurse: SILVIA : [id number] Requested By: SASHA MEDELLIN Order Number: [id number] Reading MD: Measurements Intervals [place] Rate: 83 P: 16 CA: 160 QRS: 0 QRSD: 90 T: 2 QT: 358 QTc: 426 Interpretive Statements SINUS RHYTHM LEFTWARD AXIS OTHERWISE NORMAL ECG RI6.01 Compared to ECG 12/28/2016 05:56:08 Left-axis deviation now present
[2016-12-30] MEDS ORDERED: LISINOPRIL 40 MG TABLET. PO ONE (15:00)
[2016-12-30] MEDS: ENOXAPARIN 40 MG/0.4 ML DISP.SYRIN. SQ SCH (15:21)
--- NOTE | 2016-12-30 15:32 | PDOC ---
PULMONARY PROGRESS NOTES Subjective LESS SOA Vitals Vital Signs Date Time Temp Pulse Resp B/P Pulse Ox O2 Delivery O2 Flow Rate FiO2 12/30/16 15:18 83 172/78 12/30/16 10:42 98.2 16 95 Nasal Cannula 2.0 98.2 Comments ros, as mentioned as above other sys otherwise neg ROS: No Nausea General: Alert HEENT: Other (nc at perrl, nose, throat clear) Lungs: Crackles Cardiovascular: S1, S2 Abdomen: Soft, Non-tender Neuro Exam: Alert Extremities: Other (edema) Skin: Warm Labs Laboratory Tests Test 12/28/16 20:00 12/28/16 21:01 12/29/16 05:00 12/29/16 09:38 Troponin I Quantitative 0.117ng/mL (0.000-0.055) Glucose (Fingerstick) 240mg/dL (70-99) 145mg/dL (70-99) White Blood Count 8.4x10^3/uL (4.0-11.0) Red Blood Count 3.27x10^6/uL (3.50-5.40) Hemoglobin 9.0g/dL (12.0-15.5) Hematocrit 27.7% (36.0-47.0) Mean Corpuscular Volume 85fL (79-100) Mean Corpuscular Hemoglobin 28pg (25-35) Mean Corpuscular Hemoglobin Concent 33g/dL (31-37) Red Cell Distribution Width 16.9% (11.5-14.5) Platelet Count 278x10^3/uL (140-400) Neutrophils (%) (Auto) 80% (31-73) Lymphocytes (%) (Auto) 11% (24-48) Monocytes (%) (Auto) 6% (0-9) Eosinophils (%) (Auto) 2% (0-3) Basophils (%) (Auto) 1% (0-3) Neutrophils # (Auto) 6.7x10^3uL (1.8-7.7) Lymphocytes # (Auto) 0.9x10^3/uL (1.0-4.8) Monocytes # (Auto) 0.5x10^3/uL (0.0-1.1) Eosinophils # (Auto) 0.2x10^3/uL (0.0-0.7) Basophils # (Auto) 0.1x10^3/uL (0.0-0.2) Sodium Level 140mmol/L (136-145) Potassium Level 4.0mmol/L (3.5-5.1) Chloride Level 104mmol/L (98-107) Carbon Dioxide Level 29mmol/L (21-32) Anion Gap 7 (6-14) Blood Urea Nitrogen 20mg/dL (7-20) Creatinine 0.8mg/dL (0.6-1.0) Estimated GFR (Cockcroft-Gault) 68.3 BUN/Creatinine Ratio 25 (6-20) Glucose Level 191mg/dL (70-99) Calcium Level 8.8mg/dL (8.5-10.1) Magnesium Level 1.7mg/dL (1.8-2.4) Total Bilirubin 0.4mg/dL (0.2-1.0) Aspartate Amino Transf (AST/SGOT) 13U/L (15-37) Alanine Aminotransferase (ALT/SGPT) 16U/L (14-59) Alkaline Phosphatase 97U/L (46-116) Total Protein 5.9g/dL (6.4-8.2) Albumin 2.3g/dL (3.4-5.0) Albumin/Globulin Ratio 0.6 (1.0-1.7) Test 12/29/16 12:45 12/29/16 17:00 12/30/16 04:49 12/30/16 07:48 Glucose (Fingerstick) 68mg/dL (70-99) 111mg/dL (70-99) 48mg/dL (70-99) White Blood Count 7.8x10^3/uL (4.0-11.0) Red Blood Count 3.24x10^6/uL (3.50-5.40) Hemoglobin 9.0g/dL (12.0-15.5) Hematocrit 26.7% (36.0-47.0) Mean Corpuscular Volume 82fL (79-100) Mean Corpuscular Hemoglobin 28pg (25-35) Mean Corpuscular Hemoglobin Concent 34g/dL (31-37) Red Cell Distribution Width 16.4% (11.5-14.5) Platelet Count 295x10^3/uL (140-400) Neutrophils (%) (Auto) 74% (31-73) Lymphocytes (%) (Auto) 13% (24-48) Monocytes (%) (Auto) 8% (0-9) Eosinophils (%) (Auto) 4% (0-3) Basophils (%) (Auto) 1% (0-3) Neutrophils # (Auto) 5.7x10^3uL (1.8-7.7) Lymphocytes # (Auto) 1.0x10^3/uL (1.0-4.8) Monocytes # (Auto) 0.6x10^3/uL (0.0-1.1) Eosinophils # (Auto) 0.3x10^3/uL (0.0-0.7) Basophils # (Auto) 0.1x10^3/uL (0.0-0.2) Sodium Level 141mmol/L (136-145) Potassium Level 4.1mmol/L (3.5-5.1) Chloride Level 104mmol/L (98-107) Carbon Dioxide Level 29mmol/L (21-32) Anion Gap 8 (6-14) Blood Urea Nitrogen 17mg/dL (7-20) Creatinine 0.9mg/dL (0.6-1.0) Estimated GFR (Cockcroft-Gault) 59.7 BUN/Creatinine Ratio 19 (6-20) Glucose Level 89mg/dL (70-99) Calcium Level 8.7mg/dL (8.5-10.1) Total Bilirubin 0.3mg/dL (0.2-1.0) Aspartate Amino Transf (AST/SGOT) 19U/L (15-37) Alanine Aminotransferase (ALT/SGPT) 18U/L (14-59) Alkaline Phosphatase 96U/L (46-116) Total Protein 6.1g/dL (6.4-8.2) Albumin 2.3g/dL (3.4-5.0) Albumin/Globulin Ratio 0.6 (1.0-1.7) Test 12/30/16 08:15 Glucose (Fingerstick) 192mg/dL (70-99) Laboratory Tests Test 12/29/16 17:00 12/30/16 04:49 12/30/16 07:48 12/30/16 08:15 Glucose (Fingerstick) 111mg/dL (70-99) 48mg/dL (70-99) 192mg/dL (70-99) White Blood Count 7.8x10^3/uL (4.0-11.0) Red Blood Count 3.24x10^6/uL (3.50-5.40) Hemoglobin 9.0g/dL (12.0-15.5) Hematocrit 26.7% (36.0-47.0) Mean Corpuscular Volume 82fL (79-100) Mean Corpuscular Hemoglobin 28pg (25-35) Mean Corpuscular Hemoglobin Concent 34g/dL (31-37) Red Cell Distribution Width 16.4% (11.5-14.5) Platelet Count 295x10^3/uL (140-400) Neutrophils (%) (Auto) 74% (31-73) Lymphocytes (%) (Auto) 13% (24-48) Monocytes (%) (Auto) 8% (0-9) Eosinophils (%) (Auto) 4% (0-3) Basophils (%) (Auto) 1% (0-3) Neutrophils # (Auto) 5.7x10^3uL (1.8-7.7) Lymphocytes # (Auto) 1.0x10^3/uL (1.0-4.8) Monocytes # (Auto) 0.6x10^3/uL (0.0-1.1) Eosinophils # (Auto) 0.3x10^3/uL (0.0-0.7) Basophils # (Auto) 0.1x10^3/uL (0.0-0.2) Sodium Level 141mmol/L (136-145) Potassium Level 4.1mmol/L (3.5-5.1) Chloride Level 104mmol/L (98-107) Carbon Dioxide Level 29mmol/L (21-32) Anion Gap 8 (6-14) Blood Urea Nitrogen 17mg/dL (7-20) Creatinine 0.9mg/dL (0.6-1.0) Estimated GFR (Cockcroft-Gault) 59.7 BUN/Creatinine Ratio 19 (6-20) Glucose Level 89mg/dL (70-99) Calcium Level 8.7mg/dL (8.5-10.1) Total Bilirubin 0.3mg/dL (0.2-1.0) Aspartate Amino Transf (AST/SGOT) 19U/L (15-37) Alanine Aminotransferase (ALT/SGPT) 18U/L (14-59) Alkaline Phosphatase 96U/L (46-116) Total Protein 6.1g/dL (6.4-8.2) Albumin 2.3g/dL (3.4-5.0) Albumin/Globulin Ratio 0.6 (1.0-1.7) Medications Active Scripts Medications Dose Route/Sig Days Date Category Clindamycin Hcl 300 Mg Capsule 1 Cap PO TID 12/03/16 Reported Tylenol With Codeine #3 Tablet (Acetaminophen/Codeine Phosphate) 1 Each Tablet 1 Tab PO PRN Q12HRS PRN 12/03/16 Reported Loratadine 10 Mg Tablet 1 Tab PO DAILY 12/03/16 Reported Metformin Hcl 500 Mg Tablet 500 Mg PO BIDWMEALS 12/03/16 Reported Lasix (Furosemide) 20 Mg Tablet 1 Tab PO DAILY 12/03/16 Reported Novolog (Insulin Aspart) 100 Unit/1 Ml Vial 15 Unit SQ TIDBFRMEAL 12/03/16 Reported Lantus (Insulin Glargine,Hum.rec.anlog) 100 Unit/1 Ml Vial 30 Unit SQ HS 12/03/16 Reported Amitriptyline Hcl 25 Mg Tablet 2 Tab PO QHS 12/03/16 Reported Pepcid (Famotidine) 40 Mg Tablet 40 Mg PO HS 12/03/16 Reported Lisinopril 2.5 Mg Tablet 1 Tab PO DAILY 12/03/16 Reported Tradjenta (Linagliptin) 5 Mg Tablet 1 Tab PO DAILY 12/03/16 Reported Clopidogrel (Clopidogrel Bisulfate) 75 Mg Tablet 1 Tab PO DAILY 12/03/16 Reported Synthroid (Levothyroxine Sodium) 50 Mcg Tablet 1 Tab PO DAILY06 12/03/16 Reported Lyrica (Pregabalin) 50 Mg Capsule 1 Cap PO BID 12/03/16 Reported Docusate Sodium 100 Mg Tablet 100 Mg PO PRN QEVNG PRN 12/03/16 Reported Zyvox (Linezolid) 600 Mg Tablet 600 Mg PO BID 12/03/16 Reported Iron (Ferrous Sulfate) 325 Mg Capsule.er 2 Tab PO DAILY 12/03/16 Reported Arimidex (Anastrozole) 1 Mg Tablet 1 Tab PO DAILY 12/03/16 Reported Bactroban Cream (Mupirocin) 15 Gm Cream..g. 1 Joe TP TID 12/03/16 Reported Caltrate 600 + D Tablet (Calcium Carbonate/Vitamin D3) 1 Each Tablet 1 Each PO BID 12/03/16 Reported Aspir 81 (Aspirin) 81 Mg Tablet.dr 1 Tab PO DAILY 12/03/16 Reported Comments cxr reviewed, infilt atelectasis effusion Impression . IMPRESSION: 1. Dyspnea, multifactorial 2. Acute pulmonary edema. 3. Acute systolic versus diastolic congestive heart failure. 4. Abnormal chest x-ray. 6. Coronary artery disease. 7. Peripheral vascular disease. 8. Status post amputation. 9. History of osteomyelitis. 10. Diabetes mellitus. 11. Hypertension. 12. History of breast cancer. 13. Hypothyroidism. Plan . REPEAT CXR SPOKE WITH FAMILY ON AVOIDING SALT AND DECREASE FLUID INTAKE FOLLOW CARD INPUT HENNA VELÁSQUEZ MD Dec 30, 2016 15:32
--- NOTE | 2016-12-30 17:10 | PDOC ---
PROGRESS NOTES Subjective Subjective feels better today ,less sob Objective Objective Vital Signs Date Time Temp Pulse Resp B/P Pulse Ox O2 Delivery O2 Flow Rate FiO2 12/30/16 15:18 83 172/78 12/30/16 10:42 98.2 16 95 Nasal Cannula 2.0 98.2 Intake and Output 12/30/16 07:00 Intake Total 1090 ml Output Total 600 ml Balance 490 ml Intake Oral 860 ml IV Total 230 ml Output Urine Total 600 ml # Voids 1 # Bowel Movements 1 Physical Exam Abdomen: Normal bowel sounds, Soft Heart: Regular rate, Normal S1 Extremities: No clubbing, No cyanosis General: Alert HEENT: Atraumatic Lungs: Clear to auscultation MUSCULOSKELETAL: No deformity Neck: Supple Neuro: Normal speech Psych/Mental Status: Mood NL Skin: No rashes Diagnosis Problem List Problems Medical Problems: (1) Acute on chronic congestive heart failure Status: Acute (2) Acute respiratory distress Status: Acute (3) Hypoxia Status: Acute (4) Malignant hypertension Status: Acute (5) Pulmonary edema Status: Acute (6) Severe protein-calorie malnutrition Status: Acute (7) Type 2 diabetes mellitus Status: Acute Assessment Assessment 1. Acute pulmonary edema, most likely due to congestive heart failure. 2. Diabetes mellitus type 2, not controlled. 3. Peripheral vascular disease. 4. Glaucoma. 5. Hypertension. 6. Hyperlipidemia. 7. Recent amputation of the left fifth toe for chronic osteomyelitis. The patient has had blockage of the previous bypass graft. PLAN: aggressive diuresis . medical management. treat for c diff po vancomycin. spoke with daughter. The patient will be admitted to Intensive Care Unit. Clinically, the patient is improving. Consult Dr. Weathers for pulmonary evaluation and management. Consult Dr. James for Cardiology evaluation and management. Prognosis of this patient is poor. For details, please review the orders. Malignant hypertension- improving. Leukocytosis- improving. Mild elevation of Troponin- 0.117 ? myocardial strain. DM not controlled- 275-240. Hypomagnesemia- 1.7- replace. Problems: Plan Plan of Care Problems Medical Problems: (1) Acute on chronic congestive heart failure Status: Acute (2) Acute respiratory distress Status: Acute (3) Hypoxia Status: Acute (4) Malignant hypertension Status: Acute (5) Pulmonary edema Status: Acute (6) Severe protein-calorie malnutrition Status: Acute (7) Type 2 diabetes mellitus Status: Acute Comment Review of Relevant I have reviewed the following items sheldon (where applicable) has been applied. Labs Laboratory Tests Test 12/30/16 04:49 12/30/16 07:48 12/30/16 08:15 White Blood Count 7.8x10^3/uL (4.0-11.0) Red Blood Count 3.24x10^6/uL (3.50-5.40) Hemoglobin 9.0g/dL (12.0-15.5) Hematocrit 26.7% (36.0-47.0) Mean Corpuscular Volume 82fL (79-100) Mean Corpuscular Hemoglobin 28pg (25-35) Mean Corpuscular Hemoglobin Concent 34g/dL (31-37) Red Cell Distribution Width 16.4% (11.5-14.5) Platelet Count 295x10^3/uL (140-400) Neutrophils (%) (Auto) 74% (31-73) Lymphocytes (%) (Auto) 13% (24-48) Monocytes (%) (Auto) 8% (0-9) Eosinophils (%) (Auto) 4% (0-3) Basophils (%) (Auto) 1% (0-3) Neutrophils # (Auto) 5.7x10^3uL (1.8-7.7) Lymphocytes # (Auto) 1.0x10^3/uL (1.0-4.8) Monocytes # (Auto) 0.6x10^3/uL (0.0-1.1) Eosinophils # (Auto) 0.3x10^3/uL (0.0-0.7) Basophils # (Auto) 0.1x10^3/uL (0.0-0.2) Sodium Level 141mmol/L (136-145) Potassium Level 4.1mmol/L (3.5-5.1) Chloride Level 104mmol/L (98-107) Carbon Dioxide Level 29mmol/L (21-32) Anion Gap 8 (6-14) Blood Urea Nitrogen 17mg/dL (7-20) Creatinine 0.9mg/dL (0.6-1.0) Estimated GFR (Cockcroft-Gault) 59.7 BUN/Creatinine Ratio 19 (6-20) Glucose Level 89mg/dL (70-99) Calcium Level 8.7mg/dL (8.5-10.1) Total Bilirubin 0.3mg/dL (0.2-1.0) Aspartate Amino Transf (AST/SGOT) 19U/L (15-37) Alanine Aminotransferase (ALT/SGPT) 18U/L (14-59) Alkaline Phosphatase 96U/L (46-116) Total Protein 6.1g/dL (6.4-8.2) Albumin 2.3g/dL (3.4-5.0) Albumin/Globulin Ratio 0.6 (1.0-1.7) Glucose (Fingerstick) 48mg/dL (70-99) 192mg/dL (70-99) Microbiology 12/28/16 Urine Culture - Preliminary, Resulted 12/28/16 Urine Culture Result 1 (VERNON) - Preliminary, Resulted Medications Current Medications Atorvastatin Calcium (Lipitor) 20 mg QHS PO ; Start 12/30/16 at 21:00 Carvedilol (Coreg) 6.25 mg BIDWMEALS PO ; Start 12/30/16 at 17:00 Clopidogrel Bisulfate (Plavix) 75 mg [id number] PO Last administered on 11:25; Start 12/30/16 at 08:00 Dextrose 12.5 gm PRN Q15MIN PRN IV SEE COMMENTS Last administered on 12/30/16 08:07; Start 12/30/16 at 08:00 Lisinopril (Prinivil) 40 mg 1X ONCE PO Last administered on 12/30/16 15:18; Start 12/30/16 at 15:00; Stop 12/30/16 at 15:01; Status DC Lisinopril (Prinivil) 40 mg DAILY PO ; Start 12/31/16 at 09:00 Vancomycin HCl 125 mg [id number] PO Last administered on 12/30/16 11:31; Start at 17:30; Stop 01/04/17 at 17:29 Vitals/I & O Vital Sign - Last 24 Hours 12/29/16 12/29/16 12/29/16 12/30/16 19:04 20:00 23:05 02:34 Temp 98.7 98.3 99.2 98.7 98.3 99.2 Pulse 84 88 84 Resp 20 20 18 B/P 139/62 169/79 129/58 Pulse Ox 94 95 93 O2 Delivery Room Air Nasal Cannula Nasal Cannula Nasal Cannula O2 Flow Rate 2.0 2.0 2.0 12/30/16 12/30/16 12/30/16 12/30/16 07:53 08:00 10:31 10:42 Temp 98.8 98.2 98.8 98.2 Pulse 86 89 Resp 16 16 B/P 153/68 153/66 Pulse Ox 94 95 O2 Delivery Nasal Cannula Nasal Cannula Nasal Cannula Nasal Cannula O2 Flow Rate 2.0 2.0 2.0 2.0 12/30/16 12/30/16 11:26 15:18 Pulse 85 83 B/P 152/66 172/78 Intake and Output 12/29/16 12/29/16 12/30/16 15:00 23:00 07:00 Intake Total 400 ml 690 ml Output Total 600 ml Balance 400 ml 690 ml -600 ml ARABELLA ALEXANDER MD Dec 30, 2016 17:10
[2016-12-30] MEDS: CARVEDILOL 6.25 MG TABLET PO SCH (17:41)
[2016-12-30] MEDS: INSULIN DETEMIR 300 UNITS/3 ML INSULN.PEN. SQ SCH (20:50)
[2016-12-30] MEDS: FAMOTIDINE 20 MG TABLET. PO SCH (20:51)
[2016-12-30] MEDS: AMITRIPTYLINE HCL 25 MG TABLET PO SCH (20:51)
[2016-12-30] MEDS: ATORVASTATIN CALCIUM 20 MG TABLET PO SCH (20:51)
[2016-12-31] VITALS (7 sets, daily range): BP systolic 132–180; BP diastolic 64–85
[2016-12-31 04:32] LABS: BASO # 0.1 x10^3/uL (0.0-0.2); BASO % 1 % (0-3); EOS % 4 % (0-3); HEMOGLOBIN 10.2 g/dL (12.0-15.5); LYMPH # 0.9 x10^3/uL (1.0-4.8); LYMPH % 16 % (24-48); MEAN CORPUSCULAR HEMOGLOBIN 28 pg (25-35); MEAN CORPUSCULAR HGB CONC 34 g/dL (31-37); MEAN CORPUSCULAR VOLUME 82 fL (79-100); MONO % 8 % (0-9); NEUT % 71 % (31-73); PLATELET COUNT 319 x10^3/uL (140-400); RED BLOOD COUNT 3.67 x10^6/uL (3.50-5.40); RED CELL DISTRIBUTION WIDTH 16.7 % (11.5-14.5)
[2016-12-31 05:15] LABS: ALBUMIN 2.5 g/dL (3.4-5.0); ALBUMIN/GLOBULIN RATIO 0.6 (1.0-1.7); CALCIUM 9.1 mg/dL (8.5-10.1); CREATININE 0.8 mg/dL (0.6-1.0); GFR 68.3; POTASSIUM 4.4 mmol/L (3.5-5.1); TOTAL BILIRUBIN 0.3 mg/dL (0.2-1.0); TOTAL PROTEIN 6.6 g/dL (6.4-8.2)
[2016-12-31] MEDS: LEVOTHYROXINE 50 MCG TABLET PO SCH (06:41)
[2016-12-31] MEDS ORDERED: CONTRAST GIVEN MC PRN (07:15)
[2016-12-31] MEDS ORDERED: IOHEXOL 300 MG/ML 50 ML VIAL. IJ ONE (07:15)
[2016-12-31] MEDS: INSULIN ASPART 300 UNITS/3 ML INSULN.PEN SQ SCH ×6 (07:30→16:30)
[2016-12-31] MEDS: ASPIRIN ENTERIC COATED 81 MG TABLET.DR. PO SCH (08:29)
[2016-12-31] MEDS: CETIRIZINE HCL 10 MG TABLET PO SCH (08:29)
[2016-12-31] MEDS: CLOPIDOGREL BISULFATE 75 MG TABLET PO SCH (08:29)
[2016-12-31] MEDS: CARVEDILOL 6.25 MG TABLET PO SCH ×2 (08:30→17:31)
[2016-12-31] MEDS: LINAGLIPTIN 5 MG TABLET PO SCH (08:30)
[2016-12-31] MEDS: FUROSEMIDE 40 MG TABLET PO SCH (08:30)
[2016-12-31] MEDS: LISINOPRIL 40 MG TABLET. PO SCH (08:30)
[2016-12-31] MEDS: CALCIUM CARB/VIT D3 500/200 TABLET PO SCH ×2 (08:30→17:28)
[2016-12-31] MEDS: FERROUS SULFATE 325 MG TABLET PO SCH (08:31)
[2016-12-31] MEDS: VANCOMYCIN 125 MG/2.5 ML ORAL SOLUTION. PO SCH ×4 (08:31→21:42)
[2016-12-31] MEDS: PREGABALIN 50 MG CAPSULE PO SCH ×2 (08:31→21:47)
--- NOTE | 2016-12-31 08:31 | RAD ---
Portable chest, 12/31/2016: History: Congestive heart failure Comparison is made to a study from 12/28/2016. The patient is rotated to the left. The heart is at the upper limits of normal in size. There is aortic atherosclerosis. The pulmonary vascularity is congested. There are ongoing basilar opacities compatible with pleural fluid and infiltrate, likely secondary to congestive heart failure. There is increasing loss of definition of the left hemidiaphragm. There is no evidence of pneumothorax. IMPRESSION: Ongoing congestive heart failure with basilar infiltrates and pleural effusions, slightly worse than on 12/28/2016.
[2016-12-31] MEDS: ANASTROZOLE 1 MG TABLET PO SCH (08:37)
[2016-12-31] MEDS: MUPIROCIN 2 % TOPICAL CREAM 15GM TUBE. TP SCH ×3 (09:00→21:00)
--- NOTE | 2016-12-31 09:25 | PDOC ---
GARETH BAZAN HEAD OF SALES AND MARKETING 12/31/16 0924: CARDIO Progress Notes Date and Time Date of Service 12/31/2016 Time of Evaluation 0900 Subjective Subjective: No Chest Pain, No shortness of breath, No Palpitations, No Dizziness Vitals Vitals Vital Signs Date Time Temp Pulse Resp B/P Pulse Ox O2 Delivery O2 Flow Rate FiO2 12/31/16 08:30 85 162/71 12/31/16 07:00 99.0 18 94 Nasal Cannula 2.0 99.0 Weight Weight [ ] Input and Output Intake and Output Intake and Output 12/31/16 07:00 Output Total 1002 ml Balance -1002 ml Output Urine Total 1000 ml Stool Total 2 ml # Voids 3 # Bowel Movements 3 Laboratory Labs Laboratory Tests Test 12/30/16 10:40 12/30/16 12:28 12/30/16 17:39 12/30/16 20:48 Glucose (Fingerstick) 84mg/dL (70-99) 167mg/dL (70-99) 79mg/dL (70-99) 155mg/dL (70-99) Test 12/31/16 03:10 12/31/16 07:39 White Blood Count 6.0x10^3/uL (4.0-11.0) Red Blood Count 3.67x10^6/uL (3.50-5.40) Hemoglobin 10.2g/dL (12.0-15.5) Hematocrit 30.0% (36.0-47.0) Mean Corpuscular Volume 82fL (79-100) Mean Corpuscular Hemoglobin 28pg (25-35) Mean Corpuscular Hemoglobin Concent 34g/dL (31-37) Red Cell Distribution Width 16.7% (11.5-14.5) Platelet Count 319x10^3/uL (140-400) Neutrophils (%) (Auto) 71% (31-73) Lymphocytes (%) (Auto) 16% (24-48) Monocytes (%) (Auto) 8% (0-9) Eosinophils (%) (Auto) 4% (0-3) Basophils (%) (Auto) 1% (0-3) Neutrophils # (Auto) 4.2x10^3uL (1.8-7.7) Lymphocytes # (Auto) 0.9x10^3/uL (1.0-4.8) Monocytes # (Auto) 0.5x10^3/uL (0.0-1.1) Eosinophils # (Auto) 0.2x10^3/uL (0.0-0.7) Basophils # (Auto) 0.1x10^3/uL (0.0-0.2) Sodium Level 140mmol/L (136-145) Potassium Level 4.4mmol/L (3.5-5.1) Chloride Level 102mmol/L (98-107) Carbon Dioxide Level 30mmol/L (21-32) Anion Gap 8 (6-14) Blood Urea Nitrogen 15mg/dL (7-20) Creatinine 0.8mg/dL (0.6-1.0) Estimated GFR (Cockcroft-Gault) 68.3 BUN/Creatinine Ratio 19 (6-20) Glucose Level 250mg/dL (70-99) Calcium Level 9.1mg/dL (8.5-10.1) Total Bilirubin 0.3mg/dL (0.2-1.0) Aspartate Amino Transf (AST/SGOT) 16U/L (15-37) Alanine Aminotransferase (ALT/SGPT) 17U/L (14-59) Alkaline Phosphatase 104U/L (46-116) Total Protein 6.6g/dL (6.4-8.2) Albumin 2.5g/dL (3.4-5.0) Albumin/Globulin Ratio 0.6 (1.0-1.7) Glucose (Fingerstick) 280mg/dL (70-99) Microbiology Micro Microbiology 12/28/16 Urine Culture - Preliminary, Resulted 12/28/16 Urine Culture Result 1 (VERNON) - Preliminary, Resulted Physical Exam HEENT: Neck Supple W Full Motion, Other (JVD, positive for hepatojugular reflux ) Chest: Symmetric LUNGS: Other (bibasilar crackles; mild tachypnea) Heart: S1S2, RRR Extremities: No Calf Tenderness, Other (2+ bilateral LE pitting edema) Neurology: alert, oriented, follow commands Assessment Assessment 1. Acute systolic CHF/ischemic cardiomyopathy 2. CAD/NSTEMI/3VD 3. Accelerated HTN: remains labile 4. HLP/DM2 5. Hypoglycemia Recommendations 1. Continue with secondary prevention including DAPT. 2. Medical treatment per pt and family preference 3. IV lasix today, will transition to po bumex tomorrow for better bioavailability. Would consider addition of low dose zaroxylyn 4. Lisinopril. Uptitrate Coreg per BP trend 5. Continue with med optimization 6. Avoid tight BG control 7. PCXR FRANCISCO JAVIER SANCHEZ MD 12/31/16 1704: CARDIO Progress Notes Assessment Assessment Patient seen and examined. Agree with PRODUCE SORTER's assessment and plan. Continue diuresis for acute on chronic systolic heart failure. Continue conservative medical management for severe three-vessel coronary artery disease per patient' s and family's wishes. GARETH BAZAN APRN Dec 31, 2016 09:24 FRANCISCO JAVIER SANCHEZ MD Dec 31, 2016 17:04
[2016-12-31] MEDS ORDERED: FUROSEMIDE 40 MG/4 ML VIAL IVP ONE ×2 (10:00→18:00)
--- NOTE | 2016-12-31 10:23 | PDOC ---
PROGRESS NOTES Subjective Subjective feels better ,less sob Objective Objective Vital Signs Date Time Temp Pulse Resp B/P Pulse Ox O2 Delivery O2 Flow Rate FiO2 12/31/16 08:30 85 162/71 12/31/16 08:00 Nasal Cannula 2.0 12/31/16 07:00 99.0 18 94 99.0 Intake and Output 12/31/16 07:00 Output Total 1002 ml Balance -1002 ml Output Urine Total 1000 ml Stool Total 2 ml # Voids 3 # Bowel Movements 3 Physical Exam Abdomen: Normal bowel sounds, Soft Heart: Regular rate, Normal S1 Extremities: No clubbing, No cyanosis General: Alert HEENT: Atraumatic Lungs: Clear to auscultation MUSCULOSKELETAL: No deformity Neck: Supple Neuro: Normal speech Psych/Mental Status: Mood NL Skin: No rashes Diagnosis Problem List Problems Medical Problems: (1) Acute on chronic congestive heart failure Status: Acute (2) Acute respiratory distress Status: Acute (3) Hypoxia Status: Acute (4) Malignant hypertension Status: Acute (5) Pulmonary edema Status: Acute (6) Severe protein-calorie malnutrition Status: Acute (7) Type 2 diabetes mellitus Status: Acute Assessment Assessment 1. Acute pulmonary edema, improved, 3 vessel cad 2. Diabetes mellitus type 2, not controlled. 3. Peripheral vascular disease. 4. Glaucoma. 5. Hypertension. 6. Hyperlipidemia. 7. Recent amputation of the left fifth toe for chronic osteomyelitis. The patient has had blockage of the previous bypass graft. PLAN: medical treatment on nitro drip aggressive diuresis . medical management. treat for c diff po vancomycin. spoke with daughter. wounds lt foot improving Problems: Plan Plan of Care Problems Medical Problems: (1) Acute on chronic congestive heart failure Status: Acute (2) Acute respiratory distress Status: Acute (3) Hypoxia Status: Acute (4) Malignant hypertension Status: Acute (5) Pulmonary edema Status: Acute (6) Severe protein-calorie malnutrition Status: Acute (7) Type 2 diabetes mellitus Status: Acute Comment Review of Relevant I have reviewed the following items sheldon (where applicable) has been applied. Labs Laboratory Tests Test 12/30/16 10:40 12/30/16 12:28 12/30/16 17:39 12/30/16 20:48 Glucose (Fingerstick) 84mg/dL (70-99) 167mg/dL (70-99) 79mg/dL (70-99) 155mg/dL (70-99) Test 12/31/16 03:10 12/31/16 07:39 White Blood Count 6.0x10^3/uL (4.0-11.0) Red Blood Count 3.67x10^6/uL (3.50-5.40) Hemoglobin 10.2g/dL (12.0-15.5) Hematocrit 30.0% (36.0-47.0) Mean Corpuscular Volume 82fL (79-100) Mean Corpuscular Hemoglobin 28pg (25-35) Mean Corpuscular Hemoglobin Concent 34g/dL (31-37) Red Cell Distribution Width 16.7% (11.5-14.5) Platelet Count 319x10^3/uL (140-400) Neutrophils (%) (Auto) 71% (31-73) Lymphocytes (%) (Auto) 16% (24-48) Monocytes (%) (Auto) 8% (0-9) Eosinophils (%) (Auto) 4% (0-3) Basophils (%) (Auto) 1% (0-3) Neutrophils # (Auto) 4.2x10^3uL (1.8-7.7) Lymphocytes # (Auto) 0.9x10^3/uL (1.0-4.8) Monocytes # (Auto) 0.5x10^3/uL (0.0-1.1) Eosinophils # (Auto) 0.2x10^3/uL (0.0-0.7) Basophils # (Auto) 0.1x10^3/uL (0.0-0.2) Sodium Level 140mmol/L (136-145) Potassium Level 4.4mmol/L (3.5-5.1) Chloride Level 102mmol/L (98-107) Carbon Dioxide Level 30mmol/L (21-32) Anion Gap 8 (6-14) Blood Urea Nitrogen 15mg/dL (7-20) Creatinine 0.8mg/dL (0.6-1.0) Estimated GFR (Cockcroft-Gault) 68.3 BUN/Creatinine Ratio 19 (6-20) Glucose Level 250mg/dL (70-99) Calcium Level 9.1mg/dL (8.5-10.1) Total Bilirubin 0.3mg/dL (0.2-1.0) Aspartate Amino Transf (AST/SGOT) 16U/L (15-37) Alanine Aminotransferase (ALT/SGPT) 17U/L (14-59) Alkaline Phosphatase 104U/L (46-116) Total Protein 6.6g/dL (6.4-8.2) Albumin 2.5g/dL (3.4-5.0) Albumin/Globulin Ratio 0.6 (1.0-1.7) Glucose (Fingerstick) 280mg/dL (70-99) Microbiology 12/28/16 Urine Culture - Preliminary, Resulted 12/28/16 Urine Culture Result 1 (VERNON) - Preliminary, Resulted Medications Current Medications Atorvastatin Calcium (Lipitor) 20 mg QHS PO Last administered on 12/30/16 20: 51; Start 12/30/16 at 21:00 Carvedilol (Coreg) 6.25 mg BIDWMEALS PO Last administered on 12/31/16 08:30; Start 12/30/16 at 17:00 Furosemide (Lasix) 40 mg 1X ONCE IVP ; Start 12/31/16 at 10:00; Stop 12/31/16 at 10:01; Status DC Info (Do NOT chart on this entry -- for MONITORING) 1 each PRN DAILY PRN MC SEE COMMENTS; Start 12/31/16 at 07:15; Stop 01/02/17 at 07:14 Iohexol (Omnipaque 300 Mg/ml) 50 ml 1X ONCE IJ ; Start 12/31/16 at 07:15; Stop 12/31/16 at 07:16; Status DC Lisinopril (Prinivil) 40 mg 1X ONCE PO Last administered on 12/30/16 15:18; Start 12/30/16 at 15:00; Stop 12/30/16 at 15:01; Status DC Lisinopril (Prinivil) 40 mg DAILY PO Last administered on 12/31/16 08:30; Start 12/31/16 at 09:00 Vitals/I & O Vital Sign - Last 24 Hours 12/30/16 12/30/16 12/30/16 12/30/16 10:31 10:42 11:14 11:26 Temp 98.2 98.2 Pulse 89 86 85 Resp 16 B/P 153/66 152/66 152/66 Pulse Ox 95 O2 Delivery Nasal Cannula Nasal Cannula O2 Flow Rate 2.0 2.0 12/30/16 12/30/16 12/30/16 12/30/16 11:29 11:44 11:59 12:51 Pulse 84 84 85 88 B/P 155/70 162/59 163/71 147/72 12/30/16 12/30/16 12/30/16 12/30/16 13:21 13:51 14:20 14:36 Pulse 85 83 84 B/P 160/60 165/66 162/75 154/73 12/30/16 12/30/16 12/30/16 12/30/16 15:00 15:06 15:18 15:36 Temp 98.2 98.2 Pulse 85 82 83 81 Resp 16 B/P 104/73 172/78 172/78 177/84 Pulse Ox 95 O2 Delivery Nasal Cannula O2 Flow Rate 2.0 12/30/16 12/30/16 12/30/16 12/30/16 17:41 17:42 19:25 19:57 Temp 97.6 97.6 Pulse 86 87 94 Resp 20 B/P 184/75 184/75 156/60 Pulse Ox 95 O2 Delivery Nasal Cannula Nasal Cannula O2 Flow Rate 2.0 2.0 12/30/16 12/31/16 12/31/16 12/31/16 23:00 03:00 07:00 08:00 Temp 98.9 99.5 99.0 98.9 99.5 99.0 Pulse 93 93 83 Resp 20 18 18 B/P 155/62 166/69 162/71 Pulse Ox 94 95 94 O2 Delivery Nasal Cannula Nasal Cannula Nasal Cannula Nasal Cannula O2 Flow Rate 2.0 2.0 2.0 2.0 12/31/16 12/31/16 08:30 08:30 Pulse 85 85 B/P 162/71 162/71 Intake and Output 12/30/16 12/30/16 12/31/16 15:00 23:00 07:00 Output Total 1000 ml 2 ml Balance -1000 ml -2 ml ARABELLA ALEXANDER MD Dec 31, 2016 10:22
[2016-12-31] MEDS: METOLAZONE 2.5 MG TABLET PO SCH (12:15)
--- NOTE | 2016-12-31 16:59 | PDOC ---
PULMONARY PROGRESS NOTES Subjective LESS SOA Vitals Vital Signs Date Time Temp Pulse Resp B/P Pulse Ox O2 Delivery O2 Flow Rate FiO2 12/31/16 15:00 98.1 84 17 180/83 94 Nasal Cannula 2.0 98.1 ROS: No Nausea, No Chest Pain, No Abdominal Pain General: Alert HEENT: Other (nc at perrl, nose, throat clear) Lungs: Crackles Cardiovascular: S1, S2 Abdomen: Soft, Non-tender Neuro Exam: Alert Extremities: Other (edema) Skin: Warm Labs Laboratory Tests Test 12/29/16 17:00 12/29/16 20:35 12/30/16 04:49 12/30/16 07:48 Glucose (Fingerstick) 111mg/dL (70-99) 186mg/dL (70-99) 48mg/dL (70-99) White Blood Count 7.8x10^3/uL (4.0-11.0) Red Blood Count 3.24x10^6/uL (3.50-5.40) Hemoglobin 9.0g/dL (12.0-15.5) Hematocrit 26.7% (36.0-47.0) Mean Corpuscular Volume 82fL (79-100) Mean Corpuscular Hemoglobin 28pg (25-35) Mean Corpuscular Hemoglobin Concent 34g/dL (31-37) Red Cell Distribution Width 16.4% (11.5-14.5) Platelet Count 295x10^3/uL (140-400) Neutrophils (%) (Auto) 74% (31-73) Lymphocytes (%) (Auto) 13% (24-48) Monocytes (%) (Auto) 8% (0-9) Eosinophils (%) (Auto) 4% (0-3) Basophils (%) (Auto) 1% (0-3) Neutrophils # (Auto) 5.7x10^3uL (1.8-7.7) Lymphocytes # (Auto) 1.0x10^3/uL (1.0-4.8) Monocytes # (Auto) 0.6x10^3/uL (0.0-1.1) Eosinophils # (Auto) 0.3x10^3/uL (0.0-0.7) Basophils # (Auto) 0.1x10^3/uL (0.0-0.2) Sodium Level 141mmol/L (136-145) Potassium Level 4.1mmol/L (3.5-5.1) Chloride Level 104mmol/L (98-107) Carbon Dioxide Level 29mmol/L (21-32) Anion Gap 8 (6-14) Blood Urea Nitrogen 17mg/dL (7-20) Creatinine 0.9mg/dL (0.6-1.0) Estimated GFR (Cockcroft-Gault) 59.7 BUN/Creatinine Ratio 19 (6-20) Glucose Level 89mg/dL (70-99) Calcium Level 8.7mg/dL (8.5-10.1) Total Bilirubin 0.3mg/dL (0.2-1.0) Aspartate Amino Transf (AST/SGOT) 19U/L (15-37) Alanine Aminotransferase (ALT/SGPT) 18U/L (14-59) Alkaline Phosphatase 96U/L (46-116) Total Protein 6.1g/dL (6.4-8.2) Albumin 2.3g/dL (3.4-5.0) Albumin/Globulin Ratio 0.6 (1.0-1.7) Test 12/30/16 08:15 12/30/16 10:40 12/30/16 12:28 12/30/16 17:39 Glucose (Fingerstick) 192mg/dL (70-99) 84mg/dL (70-99) 167mg/dL (70-99) 79mg/dL (70-99) Test 12/30/16 20:48 12/31/16 03:10 12/31/16 07:39 12/31/16 12:15 Glucose (Fingerstick) 155mg/dL (70-99) 280mg/dL (70-99) 135mg/dL (70-99) White Blood Count 6.0x10^3/uL (4.0-11.0) Red Blood Count 3.67x10^6/uL (3.50-5.40) Hemoglobin 10.2g/dL (12.0-15.5) Hematocrit 30.0% (36.0-47.0) Mean Corpuscular Volume 82fL (79-100) Mean Corpuscular Hemoglobin 28pg (25-35) Mean Corpuscular Hemoglobin Concent 34g/dL (31-37) Red Cell Distribution Width 16.7% (11.5-14.5) Platelet Count 319x10^3/uL (140-400) Neutrophils (%) (Auto) 71% (31-73) Lymphocytes (%) (Auto) 16% (24-48) Monocytes (%) (Auto) 8% (0-9) Eosinophils (%) (Auto) 4% (0-3) Basophils (%) (Auto) 1% (0-3) Neutrophils # (Auto) 4.2x10^3uL (1.8-7.7) Lymphocytes # (Auto) 0.9x10^3/uL (1.0-4.8) Monocytes # (Auto) 0.5x10^3/uL (0.0-1.1) Eosinophils # (Auto) 0.2x10^3/uL (0.0-0.7) Basophils # (Auto) 0.1x10^3/uL (0.0-0.2) Sodium Level 140mmol/L (136-145) Potassium Level 4.4mmol/L (3.5-5.1) Chloride Level 102mmol/L (98-107) Carbon Dioxide Level 30mmol/L (21-32) Anion Gap 8 (6-14) Blood Urea Nitrogen 15mg/dL (7-20) Creatinine 0.8mg/dL (0.6-1.0) Estimated GFR (Cockcroft-Gault) 68.3 BUN/Creatinine Ratio 19 (6-20) Glucose Level 250mg/dL (70-99) Calcium Level 9.1mg/dL (8.5-10.1) Total Bilirubin 0.3mg/dL (0.2-1.0) Aspartate Amino Transf (AST/SGOT) 16U/L (15-37) Alanine Aminotransferase (ALT/SGPT) 17U/L (14-59) Alkaline Phosphatase 104U/L (46-116) Total Protein 6.6g/dL (6.4-8.2) Albumin 2.5g/dL (3.4-5.0) Albumin/Globulin Ratio 0.6 (1.0-1.7) Laboratory Tests Test 12/30/16 17:39 12/30/16 20:48 12/31/16 03:10 12/31/16 07:39 Glucose (Fingerstick) 79mg/dL (70-99) 155mg/dL (70-99) 280mg/dL (70-99) White Blood Count 6.0x10^3/uL (4.0-11.0) Red Blood Count 3.67x10^6/uL (3.50-5.40) Hemoglobin 10.2g/dL (12.0-15.5) Hematocrit 30.0% (36.0-47.0) Mean Corpuscular Volume 82fL (79-100) Mean Corpuscular Hemoglobin 28pg (25-35) Mean Corpuscular Hemoglobin Concent 34g/dL (31-37) Red Cell Distribution Width 16.7% (11.5-14.5) Platelet Count 319x10^3/uL (140-400) Neutrophils (%) (Auto) 71% (31-73) Lymphocytes (%) (Auto) 16% (24-48) Monocytes (%) (Auto) 8% (0-9) Eosinophils (%) (Auto) 4% (0-3) Basophils (%) (Auto) 1% (0-3) Neutrophils # (Auto) 4.2x10^3uL (1.8-7.7) Lymphocytes # (Auto) 0.9x10^3/uL (1.0-4.8) Monocytes # (Auto) 0.5x10^3/uL (0.0-1.1) Eosinophils # (Auto) 0.2x10^3/uL (0.0-0.7) Basophils # (Auto) 0.1x10^3/uL (0.0-0.2) Sodium Level 140mmol/L (136-145) Potassium Level 4.4mmol/L (3.5-5.1) Chloride Level 102mmol/L (98-107) Carbon Dioxide Level 30mmol/L (21-32) Anion Gap 8 (6-14) Blood Urea Nitrogen 15mg/dL (7-20) Creatinine 0.8mg/dL (0.6-1.0) Estimated GFR (Cockcroft-Gault) 68.3 BUN/Creatinine Ratio 19 (6-20) Glucose Level 250mg/dL (70-99) Calcium Level 9.1mg/dL (8.5-10.1) Total Bilirubin 0.3mg/dL (0.2-1.0) Aspartate Amino Transf (AST/SGOT) 16U/L (15-37) Alanine Aminotransferase (ALT/SGPT) 17U/L (14-59) Alkaline Phosphatase 104U/L (46-116) Total Protein 6.6g/dL (6.4-8.2) Albumin 2.5g/dL (3.4-5.0) Albumin/Globulin Ratio 0.6 (1.0-1.7) Test 12/31/16 12:15 Glucose (Fingerstick) 135mg/dL (70-99) Medications Active Scripts Medications Dose Route/Sig Days Date Category Clindamycin Hcl 300 Mg Capsule 1 Cap PO TID 12/03/16 Reported Tylenol With Codeine #3 Tablet (Acetaminophen/Codeine Phosphate) 1 Each Tablet 1 Tab PO PRN Q12HRS PRN 12/03/16 Reported Loratadine 10 Mg Tablet 1 Tab PO DAILY 12/03/16 Reported Metformin Hcl 500 Mg Tablet 500 Mg PO BIDWMEALS 12/03/16 Reported Lasix (Furosemide) 20 Mg Tablet 1 Tab PO DAILY 12/03/16 Reported Novolog (Insulin Aspart) 100 Unit/1 Ml Vial 15 Unit SQ TIDBFRMEAL 12/03/16 Reported Lantus (Insulin Glargine,Hum.rec.anlog) 100 Unit/1 Ml Vial 30 Unit SQ HS 12/03/16 Reported Amitriptyline Hcl 25 Mg Tablet 2 Tab PO QHS 12/03/16 Reported Pepcid (Famotidine) 40 Mg Tablet 40 Mg PO HS 12/03/16 Reported Lisinopril 2.5 Mg Tablet 1 Tab PO DAILY 12/03/16 Reported Tradjenta (Linagliptin) 5 Mg Tablet 1 Tab PO DAILY 12/03/16 Reported Clopidogrel (Clopidogrel Bisulfate) 75 Mg Tablet 1 Tab PO DAILY 12/03/16 Reported Synthroid (Levothyroxine Sodium) 50 Mcg Tablet 1 Tab PO DAILY06 12/03/16 Reported Lyrica (Pregabalin) 50 Mg Capsule 1 Cap PO BID 12/03/16 Reported Docusate Sodium 100 Mg Tablet 100 Mg PO PRN QEVNG PRN 12/03/16 Reported Zyvox (Linezolid) 600 Mg Tablet 600 Mg PO BID 12/03/16 Reported Iron (Ferrous Sulfate) 325 Mg Capsule.er 2 Tab PO DAILY 12/03/16 Reported Arimidex (Anastrozole) 1 Mg Tablet 1 Tab PO DAILY 12/03/16 Reported Bactroban Cream (Mupirocin) 15 Gm Cream..g. 1 Joe TP TID 12/03/16 Reported Caltrate 600 + D Tablet (Calcium Carbonate/Vitamin D3) 1 Each Tablet 1 Each PO BID 12/03/16 Reported Aspir 81 (Aspirin) 81 Mg Tablet. 1 Tab PO DAILY 12/03/16 Reported Impression . 1. Acute resp failure 2. Acute pulmonary edema. 3. Acute systolic versus diastolic congestive heart failure. 4. Abnormal chest x-ray. 6. Coronary artery disease. 7. Peripheral vascular disease. 8. Status post amputation. 9. History of osteomyelitis. 10. Diabetes mellitus. 11. Hypertension. 12. History of breast cancer. 13. Hypothyroidism. Plan . REPEAT CXR NO CHANGE SPOKE DR ALEXANDER [employer] HENNA VELÁSQUEZ MD Dec 31, 2016 16:59
[2016-12-31] MEDS: ENOXAPARIN 40 MG/0.4 ML DISP.SYRIN. SQ SCH (17:29)
[2016-12-31] MEDS: FAMOTIDINE 20 MG TABLET. PO SCH (21:42)
[2016-12-31] MEDS: ATORVASTATIN CALCIUM 20 MG TABLET PO SCH (21:43)
[2016-12-31] MEDS: AMITRIPTYLINE HCL 25 MG TABLET PO SCH (21:43)
[2016-12-31] MEDS: INSULIN DETEMIR 300 UNITS/3 ML INSULN.PEN. SQ SCH (21:45)
[2017-01-01 03:00] VITALS: BP 134/61
[2017-01-01 06:01] LABS: BASO # 0.1 x10^3/uL (0.0-0.2); BASO % 1 % (0-3); EOS % 3 % (0-3); HEMATOCRIT 32.6 % (36.0-47.0); HEMOGLOBIN 10.8 g/dL (12.0-15.5); LYMPH # 0.9 x10^3/uL (1.0-4.8); LYMPH % 12 % (24-48); MEAN CORPUSCULAR HEMOGLOBIN 27 pg (25-35); MEAN CORPUSCULAR HGB CONC 33 g/dL (31-37); MEAN CORPUSCULAR VOLUME 82 fL (79-100); MONO % 7 % (0-9); NEUT % 76 % (31-73); PLATELET COUNT 344 x10^3/uL (140-400); RED BLOOD COUNT 3.95 x10^6/uL (3.50-5.40); RED CELL DISTRIBUTION WIDTH 16.4 % (11.5-14.5); WHITE BLOOD COUNT 7.7 x10^3/uL (4.0-11.0)
[2017-01-01 06:35] LABS: ALBUMIN 2.4 g/dL (3.4-5.0); ALBUMIN/GLOBULIN RATIO 0.6 (1.0-1.7); CALCIUM 9.5 mg/dL (8.5-10.1); CREATININE 1.1 mg/dL (0.6-1.0); GFR 47.3; TOTAL BILIRUBIN 0.3 mg/dL (0.2-1.0); TOTAL PROTEIN 6.7 g/dL (6.4-8.2)
[2017-01-01 07:00] VITALS: BP 140/61
[2017-01-01] MEDS: INSULIN ASPART 300 UNITS/3 ML INSULN.PEN SQ SCH ×6 (07:30→18:16)
[2017-01-01] MEDS: LEVOTHYROXINE 50 MCG TABLET PO SCH (07:41)
[2017-01-01] MEDS: MUPIROCIN 2 % TOPICAL CREAM 15GM TUBE. TP SCH ×3 (09:00→21:00)
[2017-01-01] MEDS ORDERED: MAGNESIUM SULFATE 2GM 50 ML IV ONE (09:00)
[2017-01-01] MEDS: FERROUS SULFATE 325 MG TABLET PO SCH (09:18)
[2017-01-01] MEDS: LINAGLIPTIN 5 MG TABLET PO SCH (09:18)
[2017-01-01] MEDS: BUMETANIDE 1 MG TABLET PO SCH (09:18)
[2017-01-01] MEDS: METOLAZONE 2.5 MG TABLET PO SCH (09:19)
[2017-01-01] MEDS: ASPIRIN ENTERIC COATED 81 MG TABLET.DR. PO SCH (09:19)
[2017-01-01] MEDS: LISINOPRIL 40 MG TABLET. PO SCH (09:19)
[2017-01-01] MEDS: CETIRIZINE HCL 10 MG TABLET PO SCH (09:20)
[2017-01-01] MEDS: CALCIUM CARB/VIT D3 500/200 TABLET PO SCH ×2 (09:20→18:10)
[2017-01-01] MEDS: CARVEDILOL 6.25 MG TABLET PO SCH ×2 (09:20→18:10)
[2017-01-01] MEDS: PREGABALIN 50 MG CAPSULE PO SCH ×2 (09:20→21:24)
[2017-01-01] MEDS: CLOPIDOGREL BISULFATE 75 MG TABLET PO SCH (09:20)
[2017-01-01] MEDS: ANASTROZOLE 1 MG TABLET PO SCH (09:21)
[2017-01-01] MEDS: VANCOMYCIN 125 MG/2.5 ML ORAL SOLUTION. PO SCH ×4 (09:48→21:54)
--- NOTE | 2017-01-01 10:20 | PDOC ---
CARDIO Progress Notes Date and Time Date of Service 01/01/2017 Time of Evaluation 0900 Subjective Subjective: No Chest Pain, No shortness of breath, No Palpitations, No Dizziness Vitals Vitals Vital Signs Date Time Temp Pulse Resp B/P Pulse Ox O2 Delivery O2 Flow Rate FiO2 01/01/17 09:20 73 140/61 01/01/17 07:00 98.6 18 92 Nasal Cannula 2.0 98.6 Weight Weight [ ] Input and Output Intake and Output Intake and Output 01/01/17 07:00 Intake Total 460 ml Output Total 2050 ml Balance -1590 ml Intake Oral 460 ml Output Urine Total 2050 ml # Voids 3 # Bowel Movements 3 Laboratory Labs Laboratory Tests Test 12/31/16 12:15 12/31/16 21:41 01/01/17 05:07 Glucose (Fingerstick) 135mg/dL (70-99) 262mg/dL (70-99) White Blood Count 7.7x10^3/uL (4.0-11.0) Red Blood Count 3.95x10^6/uL (3.50-5.40) Hemoglobin 10.8g/dL (12.0-15.5) Hematocrit 32.6% (36.0-47.0) Mean Corpuscular Volume 82fL (79-100) Mean Corpuscular Hemoglobin 27pg (25-35) Mean Corpuscular Hemoglobin Concent 33g/dL (31-37) Red Cell Distribution Width 16.4% (11.5-14.5) Platelet Count 344x10^3/uL (140-400) Neutrophils (%) (Auto) 76% (31-73) Lymphocytes (%) (Auto) 12% (24-48) Monocytes (%) (Auto) 7% (0-9) Eosinophils (%) (Auto) 3% (0-3) Basophils (%) (Auto) 1% (0-3) Neutrophils # (Auto) 5.8x10^3uL (1.8-7.7) Lymphocytes # (Auto) 0.9x10^3/uL (1.0-4.8) Monocytes # (Auto) 0.6x10^3/uL (0.0-1.1) Eosinophils # (Auto) 0.2x10^3/uL (0.0-0.7) Basophils # (Auto) 0.1x10^3/uL (0.0-0.2) Sodium Level 138mmol/L (136-145) Potassium Level 4.0mmol/L (3.5-5.1) Chloride Level 98mmol/L (98-107) Carbon Dioxide Level 33mmol/L (21-32) Anion Gap 7 (6-14) Blood Urea Nitrogen 23mg/dL (7-20) Creatinine 1.1mg/dL (0.6-1.0) Estimated GFR (Cockcroft-Gault) 47.3 BUN/Creatinine Ratio 21 (6-20) Glucose Level 209mg/dL (70-99) Calcium Level 9.5mg/dL (8.5-10.1) Magnesium Level 1.7mg/dL (1.8-2.4) Total Bilirubin 0.3mg/dL (0.2-1.0) Aspartate Amino Transf (AST/SGOT) 14U/L (15-37) Alanine Aminotransferase (ALT/SGPT) 15U/L (14-59) Alkaline Phosphatase 101U/L (46-116) Total Protein 6.7g/dL (6.4-8.2) Albumin 2.4g/dL (3.4-5.0) Albumin/Globulin Ratio 0.6 (1.0-1.7) Microbiology Micro Microbiology 12/28/16 Urine Culture - Final, Complete 12/28/16 Urine Culture Result 1 (VERNON) - Final, Complete 12/28/16 Antimicrobic Susceptibility - Final, Complete Physical Exam HEENT: Neck Supple W Full Motion Chest: Symmetric LUNGS: Other (left basilar crackles otherwise clear to auscultation) Heart: S1S2, RRR (occasional PVCs) Extremities: No Calf Tenderness, Other (1+ bilateral LE pitting edema) Neurology: alert, oriented, follow commands Assessment Assessment 1. Acute systolic CHF/ischemic cardiomyopathy: much better today 2. CAD/NSTEMI/3VD 3. Accelerated HTN 4. HLP/DM2 5. Hypoglycemia Recommendations 1. Continue with secondary prevention including DAPT. 2. Again confirmed with daughter and pt that medical treatment only, no invasive procedures. 3. Maintain po hydration adequacy 2 to 2.5 L fluid restriction. Bumex/zaroxylyn 4. BP much better controlled, continue with current regimen 5. Avoid tight BG control 6. Replace Mg 7. Discussed BP home monitoring and daily weight 8. Follow up in office as scheduled. GARETH BAZAN APRN Jan 01, 2017 10:20
--- NOTE | 2017-01-01 10:34 | PDOC ---
PROGRESS NOTES Subjective Subjective feels better ,anxious to go home Objective Objective Vital Signs Date Time Temp Pulse Resp B/P Pulse Ox O2 Delivery O2 Flow Rate FiO2 01/01/17 09:20 73 140/61 01/01/17 07:00 98.6 18 92 Nasal Cannula 2.0 98.6 Intake and Output 01/01/17 07:00 Intake Total 460 ml Output Total 2050 ml Balance -1590 ml Intake Oral 460 ml Output Urine Total 2050 ml # Voids 3 # Bowel Movements 3 Physical Exam Abdomen: Normal bowel sounds, Soft Heart: Regular rate, Normal S1 Extremities: No clubbing, No cyanosis General: Alert HEENT: Atraumatic Lungs: Clear to auscultation MUSCULOSKELETAL: No deformity Neck: Supple Neuro: Normal speech Psych/Mental Status: Mood NL Skin: No rashes Diagnosis Problem List Problems Medical Problems: (1) Acute on chronic congestive heart failure Status: Acute (2) Acute respiratory distress Status: Acute (3) Hypoxia Status: Acute (4) Malignant hypertension Status: Acute (5) Pulmonary edema Status: Acute (6) Severe protein-calorie malnutrition Status: Acute (7) Type 2 diabetes mellitus Status: Acute Assessment Assessment 1. Acute pulmonary edema, improved, 3 vessel cad 2. Diabetes mellitus type 2, not controlled. 3. Peripheral vascular disease. 4. Glaucoma. 5. Hypertension. 6. Hyperlipidemia. 7. Recent amputation of the left fifth toe for chronic osteomyelitis. The patient has had blockage of the previous bypass graft. PLAN: bumex po. medical treatment . on nitro drip aggressive diuresis . home in 1-2 days treat for c diff po vancomycin. spoke with daughter. wounds lt foot improving Problems: Plan Plan of Care Problems Medical Problems: (1) Acute on chronic congestive heart failure Status: Acute (2) Acute respiratory distress Status: Acute (3) Hypoxia Status: Acute (4) Malignant hypertension Status: Acute (5) Pulmonary edema Status: Acute (6) Severe protein-calorie malnutrition Status: Acute (7) Type 2 diabetes mellitus Status: Acute Comment Review of Relevant I have reviewed the following items sheldon (where applicable) has been applied. Labs Laboratory Tests Test 12/31/16 12:15 12/31/16 21:41 01/01/17 05:07 Glucose (Fingerstick) 135mg/dL (70-99) 262mg/dL (70-99) White Blood Count 7.7x10^3/uL (4.0-11.0) Red Blood Count 3.95x10^6/uL (3.50-5.40) Hemoglobin 10.8g/dL (12.0-15.5) Hematocrit 32.6% (36.0-47.0) Mean Corpuscular Volume 82fL (79-100) Mean Corpuscular Hemoglobin 27pg (25-35) Mean Corpuscular Hemoglobin Concent 33g/dL (31-37) Red Cell Distribution Width 16.4% (11.5-14.5) Platelet Count 344x10^3/uL (140-400) Neutrophils (%) (Auto) 76% (31-73) Lymphocytes (%) (Auto) 12% (24-48) Monocytes (%) (Auto) 7% (0-9) Eosinophils (%) (Auto) 3% (0-3) Basophils (%) (Auto) 1% (0-3) Neutrophils # (Auto) 5.8x10^3uL (1.8-7.7) Lymphocytes # (Auto) 0.9x10^3/uL (1.0-4.8) Monocytes # (Auto) 0.6x10^3/uL (0.0-1.1) Eosinophils # (Auto) 0.2x10^3/uL (0.0-0.7) Basophils # (Auto) 0.1x10^3/uL (0.0-0.2) Sodium Level 138mmol/L (136-145) Potassium Level 4.0mmol/L (3.5-5.1) Chloride Level 98mmol/L (98-107) Carbon Dioxide Level 33mmol/L (21-32) Anion Gap 7 (6-14) Blood Urea Nitrogen 23mg/dL (7-20) Creatinine 1.1mg/dL (0.6-1.0) Estimated GFR (Cockcroft-Gault) 47.3 BUN/Creatinine Ratio 21 (6-20) Glucose Level 209mg/dL (70-99) Calcium Level 9.5mg/dL (8.5-10.1) Magnesium Level 1.7mg/dL (1.8-2.4) Total Bilirubin 0.3mg/dL (0.2-1.0) Aspartate Amino Transf (AST/SGOT) 14U/L (15-37) Alanine Aminotransferase (ALT/SGPT) 15U/L (14-59) Alkaline Phosphatase 101U/L (46-116) Total Protein 6.7g/dL (6.4-8.2) Albumin 2.4g/dL (3.4-5.0) Albumin/Globulin Ratio 0.6 (1.0-1.7) Microbiology 12/28/16 Urine Culture - Final, Complete 12/28/16 Urine Culture Result 1 (VERNON) - Final, Complete 12/28/16 Antimicrobic Susceptibility - Final, Complete Medications Current Medications Bumetanide (Bumex) 1 mg DAILY PO Last administered on 01/01/17 09:18; Start at 09:00 Furosemide 40 mg 40 mg 1X ONCE IVP Last administered on 12/31/16 17:30; Start 12/31/16 at 18:00; Stop 12/31/16 at 18:01; Status DC Magnesium Sulfate/ Dextrose (Magnesium Sulfate PREMIX 2GM) 50 ml @ 25 mls/hr 1X ONCE IV Last administered on 01/01/17 09:50; Start 01/01/17 at 09:00; Stop 01/01/17 at 10:59 Metolazone (Zaroxolyn) 2.5 mg DAILY PO Last administered on 01/01/17 09:19; Start 12/31/16 at 11:45 Vitals/I & O Vital Sign - Last 24 Hours 12/31/16 12/31/16 12/31/16 12/31/16 11:00 11:10 15:00 17:31 Temp 98.8 98.1 98.8 98.1 Pulse 84 80 84 81 Resp 17 B/P 160/85 148/74 180/83 168/73 Pulse Ox 96 94 O2 Delivery Nasal Cannula Nasal Cannula O2 Flow Rate 2.0 2.0 12/31/16 12/31/16 12/31/16 01/01/17 19:00 20:00 23:20 03:00 Temp 98.0 98.6 98.5 98.0 98.6 98.5 Pulse 82 73 77 Resp 18 16 18 B/P 139/64 132/74 134/61 Pulse Ox 97 93 94 O2 Delivery Nasal Cannula Nasal Cannula Nasal Cannula Nasal Cannula O2 Flow Rate 2.0 2.0 2.0 2.0 01/01/17 01/01/17 01/01/17 07:00 09:19 09:20 Temp 98.6 98.6 Pulse 73 73 73 Resp 18 B/P 140/61 140/61 140/61 Pulse Ox 92 O2 Delivery Nasal Cannula O2 Flow Rate 2.0 Intake and Output 12/31/16 12/31/16 01/01/17 15:00 23:00 07:00 Intake Total 460 ml Output Total 1200 ml 850 ml Balance -1200 ml -390 ml ARABELLA ALEXANDER MD Jan 01, 2017 10:34
[2017-01-01 11:00] VITALS: BP 105/48
--- NOTE | 2017-01-01 11:44 | PDOC ---
PULMONARY PROGRESS NOTES Subjective LESS SOA Vitals Vital Signs Date Time Temp Pulse Resp B/P Pulse Ox O2 Delivery O2 Flow Rate FiO2 01/01/17 11:00 98.1 77 18 105/48 94 Nasal Cannula 2.0 98.1 ROS: No Nausea, No Chest Pain, No Abdominal Pain General: Alert HEENT: Other (nc at perrl, nose, throat clear) Lungs: Crackles Cardiovascular: S1, S2 Abdomen: Soft, Non-tender Neuro Exam: Alert Extremities: Other (edema) Skin: Warm Labs Laboratory Tests Test 12/30/16 12:28 12/30/16 17:39 12/30/16 20:48 12/31/16 03:10 Glucose (Fingerstick) 167mg/dL (70-99) 79mg/dL (70-99) 155mg/dL (70-99) White Blood Count 6.0x10^3/uL (4.0-11.0) Red Blood Count 3.67x10^6/uL (3.50-5.40) Hemoglobin 10.2g/dL (12.0-15.5) Hematocrit 30.0% (36.0-47.0) Mean Corpuscular Volume 82fL (79-100) Mean Corpuscular Hemoglobin 28pg (25-35) Mean Corpuscular Hemoglobin Concent 34g/dL (31-37) Red Cell Distribution Width 16.7% (11.5-14.5) Platelet Count 319x10^3/uL (140-400) Neutrophils (%) (Auto) 71% (31-73) Lymphocytes (%) (Auto) 16% (24-48) Monocytes (%) (Auto) 8% (0-9) Eosinophils (%) (Auto) 4% (0-3) Basophils (%) (Auto) 1% (0-3) Neutrophils # (Auto) 4.2x10^3uL (1.8-7.7) Lymphocytes # (Auto) 0.9x10^3/uL (1.0-4.8) Monocytes # (Auto) 0.5x10^3/uL (0.0-1.1) Eosinophils # (Auto) 0.2x10^3/uL (0.0-0.7) Basophils # (Auto) 0.1x10^3/uL (0.0-0.2) Sodium Level 140mmol/L (136-145) Potassium Level 4.4mmol/L (3.5-5.1) Chloride Level 102mmol/L (98-107) Carbon Dioxide Level 30mmol/L (21-32) Anion Gap 8 (6-14) Blood Urea Nitrogen 15mg/dL (7-20) Creatinine 0.8mg/dL (0.6-1.0) Estimated GFR (Cockcroft-Gault) 68.3 BUN/Creatinine Ratio 19 (6-20) Glucose Level 250mg/dL (70-99) Calcium Level 9.1mg/dL (8.5-10.1) Total Bilirubin 0.3mg/dL (0.2-1.0) Aspartate Amino Transf (AST/SGOT) 16U/L (15-37) Alanine Aminotransferase (ALT/SGPT) 17U/L (14-59) Alkaline Phosphatase 104U/L (46-116) Total Protein 6.6g/dL (6.4-8.2) Albumin 2.5g/dL (3.4-5.0) Albumin/Globulin Ratio 0.6 (1.0-1.7) Test 12/31/16 07:39 12/31/16 12:15 12/31/16 21:41 01/01/17 05:07 Glucose (Fingerstick) 280mg/dL (70-99) 135mg/dL (70-99) 262mg/dL (70-99) White Blood Count 7.7x10^3/uL (4.0-11.0) Red Blood Count 3.95x10^6/uL (3.50-5.40) Hemoglobin 10.8g/dL (12.0-15.5) Hematocrit 32.6% (36.0-47.0) Mean Corpuscular Volume 82fL (79-100) Mean Corpuscular Hemoglobin 27pg (25-35) Mean Corpuscular Hemoglobin Concent 33g/dL (31-37) Red Cell Distribution Width 16.4% (11.5-14.5) Platelet Count 344x10^3/uL (140-400) Neutrophils (%) (Auto) 76% (31-73) Lymphocytes (%) (Auto) 12% (24-48) Monocytes (%) (Auto) 7% (0-9) Eosinophils (%) (Auto) 3% (0-3) Basophils (%) (Auto) 1% (0-3) Neutrophils # (Auto) 5.8x10^3uL (1.8-7.7) Lymphocytes # (Auto) 0.9x10^3/uL (1.0-4.8) Monocytes # (Auto) 0.6x10^3/uL (0.0-1.1) Eosinophils # (Auto) 0.2x10^3/uL (0.0-0.7) Basophils # (Auto) 0.1x10^3/uL (0.0-0.2) Sodium Level 138mmol/L (136-145) Potassium Level 4.0mmol/L (3.5-5.1) Chloride Level 98mmol/L (98-107) Carbon Dioxide Level 33mmol/L (21-32) Anion Gap 7 (6-14) Blood Urea Nitrogen 23mg/dL (7-20) Creatinine 1.1mg/dL (0.6-1.0) Estimated GFR (Cockcroft-Gault) 47.3 BUN/Creatinine Ratio 21 (6-20) Glucose Level 209mg/dL (70-99) Calcium Level 9.5mg/dL (8.5-10.1) Magnesium Level 1.7mg/dL (1.8-2.4) Total Bilirubin 0.3mg/dL (0.2-1.0) Aspartate Amino Transf (AST/SGOT) 14U/L (15-37) Alanine Aminotransferase (ALT/SGPT) 15U/L (14-59) Alkaline Phosphatase 101U/L (46-116) Total Protein 6.7g/dL (6.4-8.2) Albumin 2.4g/dL (3.4-5.0) Albumin/Globulin Ratio 0.6 (1.0-1.7) Laboratory Tests Test 12/31/16 12:15 12/31/16 21:41 01/01/17 05:07 Glucose (Fingerstick) 135mg/dL (70-99) 262mg/dL (70-99) White Blood Count 7.7x10^3/uL (4.0-11.0) Red Blood Count 3.95x10^6/uL (3.50-5.40) Hemoglobin 10.8g/dL (12.0-15.5) Hematocrit 32.6% (36.0-47.0) Mean Corpuscular Volume 82fL (79-100) Mean Corpuscular Hemoglobin 27pg (25-35) Mean Corpuscular Hemoglobin Concent 33g/dL (31-37) Red Cell Distribution Width 16.4% (11.5-14.5) Platelet Count 344x10^3/uL (140-400) Neutrophils (%) (Auto) 76% (31-73) Lymphocytes (%) (Auto) 12% (24-48) Monocytes (%) (Auto) 7% (0-9) Eosinophils (%) (Auto) 3% (0-3) Basophils (%) (Auto) 1% (0-3) Neutrophils # (Auto) 5.8x10^3uL (1.8-7.7) Lymphocytes # (Auto) 0.9x10^3/uL (1.0-4.8) Monocytes # (Auto) 0.6x10^3/uL (0.0-1.1) Eosinophils # (Auto) 0.2x10^3/uL (0.0-0.7) Basophils # (Auto) 0.1x10^3/uL (0.0-0.2) Sodium Level 138mmol/L (136-145) Potassium Level 4.0mmol/L (3.5-5.1) Chloride Level 98mmol/L (98-107) Carbon Dioxide Level 33mmol/L (21-32) Anion Gap 7 (6-14) Blood Urea Nitrogen 23mg/dL (7-20) Creatinine 1.1mg/dL (0.6-1.0) Estimated GFR (Cockcroft-Gault) 47.3 BUN/Creatinine Ratio 21 (6-20) Glucose Level 209mg/dL (70-99) Calcium Level 9.5mg/dL (8.5-10.1) Magnesium Level 1.7mg/dL (1.8-2.4) Total Bilirubin 0.3mg/dL (0.2-1.0) Aspartate Amino Transf (AST/SGOT) 14U/L (15-37) Alanine Aminotransferase (ALT/SGPT) 15U/L (14-59) Alkaline Phosphatase 101U/L (46-116) Total Protein 6.7g/dL (6.4-8.2) Albumin 2.4g/dL (3.4-5.0) Albumin/Globulin Ratio 0.6 (1.0-1.7) Medications Active Scripts Medications Dose Route/Sig Days Date Category Clindamycin Hcl 300 Mg Capsule 1 Cap PO TID 12/03/16 Reported Tylenol With Codeine #3 Tablet (Acetaminophen/Codeine Phosphate) 1 Each Tablet 1 Tab PO PRN Q12HRS PRN 12/03/16 Reported Loratadine 10 Mg Tablet 1 Tab PO DAILY 12/03/16 Reported Metformin Hcl 500 Mg Tablet 500 Mg PO BIDWMEALS 12/03/16 Reported Lasix (Furosemide) 20 Mg Tablet 1 Tab PO DAILY 12/03/16 Reported Novolog (Insulin Aspart) 100 Unit/1 Ml Vial 15 Unit SQ TIDBFRMEAL 12/03/16 Reported Lantus (Insulin Glargine,Hum.rec.anlog) 100 Unit/1 Ml Vial 30 Unit SQ HS 12/03/16 Reported Amitriptyline Hcl 25 Mg Tablet 2 Tab PO QHS 12/03/16 Reported Pepcid (Famotidine) 40 Mg Tablet 40 Mg PO HS 12/03/16 Reported Lisinopril 2.5 Mg Tablet 1 Tab PO DAILY 12/03/16 Reported Tradjenta (Linagliptin) 5 Mg Tablet 1 Tab PO DAILY 12/03/16 Reported Clopidogrel (Clopidogrel Bisulfate) 75 Mg Tablet 1 Tab PO DAILY 12/03/16 Reported Synthroid (Levothyroxine Sodium) 50 Mcg Tablet 1 Tab PO DAILY06 12/03/16 Reported Lyrica (Pregabalin) 50 Mg Capsule 1 Cap PO BID 12/03/16 Reported Docusate Sodium 100 Mg Tablet 100 Mg PO PRN QEVNG PRN 12/03/16 Reported Zyvox (Linezolid) 600 Mg Tablet 600 Mg PO BID 12/03/16 Reported Iron (Ferrous Sulfate) 325 Mg Capsule.er 2 Tab PO DAILY 12/03/16 Reported Arimidex (Anastrozole) 1 Mg Tablet 1 Tab PO DAILY 12/03/16 Reported Bactroban Cream (Mupirocin) 15 Gm Cream..g. 1 Joe TP TID 12/03/16 Reported Caltrate 600 + D Tablet (Calcium Carbonate/Vitamin D3) 1 Each Tablet 1 Each PO BID 12/03/16 Reported Aspir 81 (Aspirin) 81 Mg Tablet. 1 Tab PO DAILY 12/03/16 Reported Impression . 1. Acute resp failure 2. Acute pulmonary edema. 3. Acute systolic versus diastolic congestive heart failure. 4. Abnormal chest x-ray. 6. Coronary artery disease. 7. Peripheral vascular disease. 8. Status post amputation. 9. History of osteomyelitis. 10. Diabetes mellitus. 11. Hypertension. 12. History of breast cancer. 13. Hypothyroidism. Plan . REPEAT CXR NO CHANGE SPOKE DR ALEXANDER [employer] HENNA VELÁSQUEZ MD Jan 01, 2017 11:44
[2017-01-01 15:00] VITALS: BP 118/58
[2017-01-01] MEDS: ENOXAPARIN 40 MG/0.4 ML DISP.SYRIN. SQ SCH (16:11)
[2017-01-01 19:00] VITALS: BP 126/58
[2017-01-01] MEDS: ATORVASTATIN CALCIUM 20 MG TABLET PO SCH (21:24)
[2017-01-01] MEDS: FAMOTIDINE 20 MG TABLET. PO SCH (21:24)
[2017-01-01] MEDS: AMITRIPTYLINE HCL 25 MG TABLET PO SCH (21:24)
[2017-01-01] MEDS: INSULIN DETEMIR 300 UNITS/3 ML INSULN.PEN. SQ SCH (21:39)
[2017-01-01 23:00] VITALS: BP 135/60
[2017-01-02] VITALS (7 sets, daily range): BP systolic 92–145; BP diastolic 41–63
[2017-01-02 04:58] LABS: BASO # 0.1 x10^3/uL (0.0-0.2); BASO % 1 % (0-3); EOS % 3 % (0-3); HEMATOCRIT 31.3 % (36.0-47.0); HEMOGLOBIN 10.4 g/dL (12.0-15.5); LYMPH # 1.2 x10^3/uL (1.0-4.8); LYMPH % 13 % (24-48); MEAN CORPUSCULAR HEMOGLOBIN 28 pg (25-35); MEAN CORPUSCULAR HGB CONC 33 g/dL (31-37); MEAN CORPUSCULAR VOLUME 84 fL (79-100); MONO % 8 % (0-9); NEUT % 76 % (31-73); PLATELET COUNT 318 x10^3/uL (140-400); RED BLOOD COUNT 3.74 x10^6/uL (3.50-5.40); RED CELL DISTRIBUTION WIDTH 16.7 % (11.5-14.5); WHITE BLOOD COUNT 9.8 x10^3/uL (4.0-11.0)
[2017-01-02 05:29] LABS: ALBUMIN 2.5 g/dL (3.4-5.0); ALBUMIN/GLOBULIN RATIO 0.6 (1.0-1.7); CALCIUM 9.7 mg/dL (8.5-10.1); CREATININE 1.2 mg/dL (0.6-1.0); GFR 42.8; POTASSIUM 3.7 mmol/L (3.5-5.1); TOTAL BILIRUBIN 0.3 mg/dL (0.2-1.0); TOTAL PROTEIN 6.4 g/dL (6.4-8.2)
[2017-01-02] MEDS: LEVOTHYROXINE 50 MCG TABLET PO SCH (06:11)
[2017-01-02] MEDS: INSULIN ASPART 300 UNITS/3 ML INSULN.PEN SQ SCH ×6 (07:30→16:30)
[2017-01-02] MEDS: METOLAZONE 2.5 MG TABLET PO SCH (09:00)
[2017-01-02] MEDS: BUMETANIDE 1 MG TABLET PO SCH (09:00)
--- NOTE | 2017-01-02 09:39 | PDOC ---
PULMONARY PROGRESS NOTES Subjective PT NOT SEEN Vitals Vital Signs Date Time Temp Pulse Resp B/P Pulse Ox O2 Delivery O2 Flow Rate FiO2 01/02/17 07:50 98.4 72 18 123/61 96 Room Air 98.4 01/02/17 03:00 2.0 HEENT: Other (nc at perrl, nose, throat clear) Labs Laboratory Tests Test 12/31/16 12:15 12/31/16 21:41 01/01/17 05:07 01/01/17 07:21 Glucose (Fingerstick) 135mg/dL (70-99) 262mg/dL (70-99) 186mg/dL (70-99) White Blood Count 7.7x10^3/uL (4.0-11.0) Red Blood Count 3.95x10^6/uL (3.50-5.40) Hemoglobin 10.8g/dL (12.0-15.5) Hematocrit 32.6% (36.0-47.0) Mean Corpuscular Volume 82fL (79-100) Mean Corpuscular Hemoglobin 27pg (25-35) Mean Corpuscular Hemoglobin Concent 33g/dL (31-37) Red Cell Distribution Width 16.4% (11.5-14.5) Platelet Count 344x10^3/uL (140-400) Neutrophils (%) (Auto) 76% (31-73) Lymphocytes (%) (Auto) 12% (24-48) Monocytes (%) (Auto) 7% (0-9) Eosinophils (%) (Auto) 3% (0-3) Basophils (%) (Auto) 1% (0-3) Neutrophils # (Auto) 5.8x10^3uL (1.8-7.7) Lymphocytes # (Auto) 0.9x10^3/uL (1.0-4.8) Monocytes # (Auto) 0.6x10^3/uL (0.0-1.1) Eosinophils # (Auto) 0.2x10^3/uL (0.0-0.7) Basophils # (Auto) 0.1x10^3/uL (0.0-0.2) Sodium Level 138mmol/L (136-145) Potassium Level 4.0mmol/L (3.5-5.1) Chloride Level 98mmol/L (98-107) Carbon Dioxide Level 33mmol/L (21-32) Anion Gap 7 (6-14) Blood Urea Nitrogen 23mg/dL (7-20) Creatinine 1.1mg/dL (0.6-1.0) Estimated GFR (Cockcroft-Gault) 47.3 BUN/Creatinine Ratio 21 (6-20) Glucose Level 209mg/dL (70-99) Calcium Level 9.5mg/dL (8.5-10.1) Magnesium Level 1.7mg/dL (1.8-2.4) Total Bilirubin 0.3mg/dL (0.2-1.0) Aspartate Amino Transf (AST/SGOT) 14U/L (15-37) Alanine Aminotransferase (ALT/SGPT) 15U/L (14-59) Alkaline Phosphatase 101U/L (46-116) Total Protein 6.7g/dL (6.4-8.2) Albumin 2.4g/dL (3.4-5.0) Albumin/Globulin Ratio 0.6 (1.0-1.7) Test 01/01/17 11:59 01/01/17 16:09 01/01/17 21:21 01/02/17 04:08 Glucose (Fingerstick) 83mg/dL (70-99) 171mg/dL (70-99) 135mg/dL (70-99) White Blood Count 9.8x10^3/uL (4.0-11.0) Red Blood Count 3.74x10^6/uL (3.50-5.40) Hemoglobin 10.4g/dL (12.0-15.5) Hematocrit 31.3% (36.0-47.0) Mean Corpuscular Volume 84fL (79-100) Mean Corpuscular Hemoglobin 28pg (25-35) Mean Corpuscular Hemoglobin Concent 33g/dL (31-37) Red Cell Distribution Width 16.7% (11.5-14.5) Platelet Count 318x10^3/uL (140-400) Neutrophils (%) (Auto) 76% (31-73) Lymphocytes (%) (Auto) 13% (24-48) Monocytes (%) (Auto) 8% (0-9) Eosinophils (%) (Auto) 3% (0-3) Basophils (%) (Auto) 1% (0-3) Neutrophils # (Auto) 7.5x10^3uL (1.8-7.7) Lymphocytes # (Auto) 1.2x10^3/uL (1.0-4.8) Monocytes # (Auto) 0.7x10^3/uL (0.0-1.1) Eosinophils # (Auto) 0.3x10^3/uL (0.0-0.7) Basophils # (Auto) 0.1x10^3/uL (0.0-0.2) Sodium Level 138mmol/L (136-145) Potassium Level 3.7mmol/L (3.5-5.1) Chloride Level 99mmol/L (98-107) Carbon Dioxide Level 34mmol/L (21-32) Anion Gap 5 (6-14) Blood Urea Nitrogen 32mg/dL (7-20) Creatinine 1.2mg/dL (0.6-1.0) Estimated GFR (Cockcroft-Gault) 42.8 BUN/Creatinine Ratio 27 (6-20) Glucose Level 160mg/dL (70-99) Calcium Level 9.7mg/dL (8.5-10.1) Total Bilirubin 0.3mg/dL (0.2-1.0) Aspartate Amino Transf (AST/SGOT) 14U/L (15-37) Alanine Aminotransferase (ALT/SGPT) 12U/L (14-59) Alkaline Phosphatase 94U/L (46-116) Total Protein 6.4g/dL (6.4-8.2) Albumin 2.5g/dL (3.4-5.0) Albumin/Globulin Ratio 0.6 (1.0-1.7) Test 01/02/17 08:08 Glucose (Fingerstick) 79mg/dL (70-99) Laboratory Tests Test 01/01/17 11:59 01/01/17 16:09 01/01/17 21:21 01/02/17 04:08 Glucose (Fingerstick) 83mg/dL (70-99) 171mg/dL (70-99) 135mg/dL (70-99) White Blood Count 9.8x10^3/uL (4.0-11.0) Red Blood Count 3.74x10^6/uL (3.50-5.40) Hemoglobin 10.4g/dL (12.0-15.5) Hematocrit 31.3% (36.0-47.0) Mean Corpuscular Volume 84fL (79-100) Mean Corpuscular Hemoglobin 28pg (25-35) Mean Corpuscular Hemoglobin Concent 33g/dL (31-37) Red Cell Distribution Width 16.7% (11.5-14.5) Platelet Count 318x10^3/uL (140-400) Neutrophils (%) (Auto) 76% (31-73) Lymphocytes (%) (Auto) 13% (24-48) Monocytes (%) (Auto) 8% (0-9) Eosinophils (%) (Auto) 3% (0-3) Basophils (%) (Auto) 1% (0-3) Neutrophils # (Auto) 7.5x10^3uL (1.8-7.7) Lymphocytes # (Auto) 1.2x10^3/uL (1.0-4.8) Monocytes # (Auto) 0.7x10^3/uL (0.0-1.1) Eosinophils # (Auto) 0.3x10^3/uL (0.0-0.7) Basophils # (Auto) 0.1x10^3/uL (0.0-0.2) Sodium Level 138mmol/L (136-145) Potassium Level 3.7mmol/L (3.5-5.1) Chloride Level 99mmol/L (98-107) Carbon Dioxide Level 34mmol/L (21-32) Anion Gap 5 (6-14) Blood Urea Nitrogen 32mg/dL (7-20) Creatinine 1.2mg/dL (0.6-1.0) Estimated GFR (Cockcroft-Gault) 42.8 BUN/Creatinine Ratio 27 (6-20) Glucose Level 160mg/dL (70-99) Calcium Level 9.7mg/dL (8.5-10.1) Total Bilirubin 0.3mg/dL (0.2-1.0) Aspartate Amino Transf (AST/SGOT) 14U/L (15-37) Alanine Aminotransferase (ALT/SGPT) 12U/L (14-59) Alkaline Phosphatase 94U/L (46-116) Total Protein 6.4g/dL (6.4-8.2) Albumin 2.5g/dL (3.4-5.0) Albumin/Globulin Ratio 0.6 (1.0-1.7) Test 01/02/17 08:08 Glucose (Fingerstick) 79mg/dL (70-99) Medications Active Scripts Medications Dose Route/Sig Days Date Category Clindamycin Hcl 300 Mg Capsule 1 Cap PO TID 12/03/16 Reported Tylenol With Codeine #3 Tablet (Acetaminophen/Codeine Phosphate) 1 Each Tablet 1 Tab PO PRN Q12HRS PRN 12/03/16 Reported Loratadine 10 Mg Tablet 1 Tab PO DAILY 12/03/16 Reported Metformin Hcl 500 Mg Tablet 500 Mg PO BIDWMEALS 12/03/16 Reported Lasix (Furosemide) 20 Mg Tablet 1 Tab PO DAILY 12/03/16 Reported Novolog (Insulin Aspart) 100 Unit/1 Ml Vial 15 Unit SQ TIDBFRMEAL 12/03/16 Reported Lantus (Insulin Glargine,Hum.rec.anlog) 100 Unit/1 Ml Vial 30 Unit SQ HS 12/03/16 Reported Amitriptyline Hcl 25 Mg Tablet 2 Tab PO QHS 12/03/16 Reported Pepcid (Famotidine) 40 Mg Tablet 40 Mg PO HS 12/03/16 Reported Lisinopril 2.5 Mg Tablet 1 Tab PO DAILY 12/03/16 Reported Tradjenta (Linagliptin) 5 Mg Tablet 1 Tab PO DAILY 12/03/16 Reported Clopidogrel (Clopidogrel Bisulfate) 75 Mg Tablet 1 Tab PO DAILY 12/03/16 Reported Synthroid (Levothyroxine Sodium) 50 Mcg Tablet 1 Tab PO DAILY06 12/03/16 Reported Lyrica (Pregabalin) 50 Mg Capsule 1 Cap PO BID 12/03/16 Reported Docusate Sodium 100 Mg Tablet 100 Mg PO PRN QEVNG PRN 12/03/16 Reported Zyvox (Linezolid) 600 Mg Tablet 600 Mg PO BID 12/03/16 Reported Iron (Ferrous Sulfate) 325 Mg Capsule.er 2 Tab PO DAILY 12/03/16 Reported Arimidex (Anastrozole) 1 Mg Tablet 1 Tab PO DAILY 12/03/16 Reported Bactroban Cream (Mupirocin) 15 Gm Cream..g. 1 Joe TP TID 12/03/16 Reported Caltrate 600 + D Tablet (Calcium Carbonate/Vitamin D3) 1 Each Tablet 1 Each PO BID 12/03/16 Reported Aspir 81 (Aspirin) 81 Mg Tablet. 1 Tab PO DAILY 12/03/16 Reported Impression . 1. Acute resp failure 2. Acute pulmonary edema. 3. Acute systolic versus diastolic congestive heart failure. 4. Abnormal chest x-ray. 6. Coronary artery disease. 7. Peripheral vascular disease. 8. Status post amputation. 9. History of osteomyelitis. 10. Diabetes mellitus. 11. Hypertension. 12. History of breast cancer. 13. Hypothyroidism. Plan . REPEAT CXR BETTER SPOKE DR ALEXANDER WILL SEE PRN THANKS HENNA VELÁSQUEZ MD Jan 02, 2017 09:39
[2017-01-02] MEDS: PREGABALIN 50 MG CAPSULE PO SCH ×2 (09:48→20:44)
[2017-01-02] MEDS: CETIRIZINE HCL 10 MG TABLET PO SCH (09:48)
[2017-01-02] MEDS: VANCOMYCIN 125 MG/2.5 ML ORAL SOLUTION. PO SCH ×4 (09:48→20:43)
[2017-01-02] MEDS: FERROUS SULFATE 325 MG TABLET PO SCH (09:50)
[2017-01-02] MEDS: LISINOPRIL 40 MG TABLET. PO SCH (09:50)
[2017-01-02] MEDS: CARVEDILOL 6.25 MG TABLET PO SCH ×2 (09:51→16:50)
[2017-01-02] MEDS: ANASTROZOLE 1 MG TABLET PO SCH (09:53)
[2017-01-02] MEDS: ASPIRIN ENTERIC COATED 81 MG TABLET.DR. PO SCH (09:54)
[2017-01-02] MEDS: LINAGLIPTIN 5 MG TABLET PO SCH (09:54)
[2017-01-02] MEDS: CALCIUM CARB/VIT D3 500/200 TABLET PO SCH ×2 (09:54→16:49)
[2017-01-02] MEDS: CLOPIDOGREL BISULFATE 75 MG TABLET PO SCH (09:54)
[2017-01-02] MEDS: MUPIROCIN 2 % TOPICAL CREAM 15GM TUBE. TP SCH ×3 (09:56→20:44)
--- NOTE | 2017-01-02 10:00 | PDOC ---
PROGRESS NOTES Subjective Subjective getting stronger,eating well Objective Objective Vital Signs Date Time Temp Pulse Resp B/P Pulse Ox O2 Delivery O2 Flow Rate FiO2 01/02/17 09:51 72 123/61 01/02/17 07:50 98.4 18 96 Room Air 98.4 01/02/17 03:00 2.0 Intake and Output 01/02/17 07:00 Intake Total 510 ml Output Total 660 ml Balance -150 ml Intake Oral 460 ml IV Total 50 ml Output Urine Total 660 ml # Voids 2 # Bowel Movements 4 Physical Exam Abdomen: Normal bowel sounds, Soft Heart: Regular rate, Normal S1 Extremities: No clubbing, No cyanosis General: Alert HEENT: Atraumatic Lungs: Clear to auscultation MUSCULOSKELETAL: No deformity Neck: Supple Neuro: Normal speech Psych/Mental Status: Mood NL Skin: No rashes, Other (foot ulcer lt over 5 th toe site) Diagnosis Problem List Problems Medical Problems: (1) Acute on chronic congestive heart failure Status: Acute (2) Acute respiratory distress Status: Acute (3) Hypoxia Status: Acute (4) Malignant hypertension Status: Acute (5) Pulmonary edema Status: Acute (6) Severe protein-calorie malnutrition Status: Acute (7) Type 2 diabetes mellitus Status: Acute Assessment Assessment 1. Acute pulmonary edema, improved, 3 vessel cad 2. Diabetes mellitus type 2, not controlled. 3. Peripheral vascular disease. 4. Glaucoma. 5. Hypertension. 6. Hyperlipidemia. 7. Recent amputation of the left fifth toe for chronic osteomyelitis. The patient has had blockage of the previous bypass graft. PLAN: d/c ntg drip start on imdur. d/c plans for tomorrow bumex+zaroxolyn po. medical treatment . on nitro drip aggressive diuresis . home in 1-2 days treat for c diff po vancomycin. spoke with daughter. wounds lt foot improving Problems: Plan Plan of Care Problems Medical Problems: (1) Acute on chronic congestive heart failure Status: Acute (2) Acute respiratory distress Status: Acute (3) Hypoxia Status: Acute (4) Malignant hypertension Status: Acute (5) Pulmonary edema Status: Acute (6) Severe protein-calorie malnutrition Status: Acute (7) Type 2 diabetes mellitus Status: Acute Comment Review of Relevant I have reviewed the following items sheldon (where applicable) has been applied. Labs Laboratory Tests Test 01/01/17 11:59 01/01/17 16:09 01/01/17 21:21 01/02/17 04:08 Glucose (Fingerstick) 83mg/dL (70-99) 171mg/dL (70-99) 135mg/dL (70-99) White Blood Count 9.8x10^3/uL (4.0-11.0) Red Blood Count 3.74x10^6/uL (3.50-5.40) Hemoglobin 10.4g/dL (12.0-15.5) Hematocrit 31.3% (36.0-47.0) Mean Corpuscular Volume 84fL (79-100) Mean Corpuscular Hemoglobin 28pg (25-35) Mean Corpuscular Hemoglobin Concent 33g/dL (31-37) Red Cell Distribution Width 16.7% (11.5-14.5) Platelet Count 318x10^3/uL (140-400) Neutrophils (%) (Auto) 76% (31-73) Lymphocytes (%) (Auto) 13% (24-48) Monocytes (%) (Auto) 8% (0-9) Eosinophils (%) (Auto) 3% (0-3) Basophils (%) (Auto) 1% (0-3) Neutrophils # (Auto) 7.5x10^3uL (1.8-7.7) Lymphocytes # (Auto) 1.2x10^3/uL (1.0-4.8) Monocytes # (Auto) 0.7x10^3/uL (0.0-1.1) Eosinophils # (Auto) 0.3x10^3/uL (0.0-0.7) Basophils # (Auto) 0.1x10^3/uL (0.0-0.2) Sodium Level 138mmol/L (136-145) Potassium Level 3.7mmol/L (3.5-5.1) Chloride Level 99mmol/L (98-107) Carbon Dioxide Level 34mmol/L (21-32) Anion Gap 5 (6-14) Blood Urea Nitrogen 32mg/dL (7-20) Creatinine 1.2mg/dL (0.6-1.0) Estimated GFR (Cockcroft-Gault) 42.8 BUN/Creatinine Ratio 27 (6-20) Glucose Level 160mg/dL (70-99) Calcium Level 9.7mg/dL (8.5-10.1) Total Bilirubin 0.3mg/dL (0.2-1.0) Aspartate Amino Transf (AST/SGOT) 14U/L (15-37) Alanine Aminotransferase (ALT/SGPT) 12U/L (14-59) Alkaline Phosphatase 94U/L (46-116) Total Protein 6.4g/dL (6.4-8.2) Albumin 2.5g/dL (3.4-5.0) Albumin/Globulin Ratio 0.6 (1.0-1.7) Test 01/02/17 08:08 Glucose (Fingerstick) 79mg/dL (70-99) Microbiology 12/28/16 Urine Culture - Final, Complete 12/28/16 Urine Culture Result 1 (VERNON) - Final, Complete 12/28/16 Antimicrobic Susceptibility - Final, Complete Vitals/I & O Vital Sign - Last 24 Hours 01/01/17 01/01/17 01/01/17 01/01/17 11:00 15:00 18:10 19:00 Temp 98.1 98.6 98.1 98.1 98.6 98.1 Pulse 77 73 73 73 Resp 18 18 16 B/P 105/48 118/58 118/58 126/58 Pulse Ox 94 96 96 O2 Delivery Nasal Cannula Nasal Cannula Nasal Cannula O2 Flow Rate 2.0 2.0 2.0 01/01/17 01/01/17 01/02/17 01/02/17 20:00 23:00 03:00 07:50 Temp 98.0 99.3 98.4 98.0 99.3 98.4 Pulse 66 76 72 Resp 16 14 18 B/P 135/60 138/63 123/61 Pulse Ox 96 96 96 O2 Delivery Nasal Cannula Nasal Cannula Nasal Cannula Room Air O2 Flow Rate 2.0 2.0 2.0 01/02/17 01/02/17 09:50 09:51 Pulse 72 72 B/P 123/61 123/61 Intake and Output 01/01/17 01/01/17 01/02/17 15:00 23:00 07:00 Intake Total 410 ml 100 ml Output Total 660 ml Balance -250 ml 100 ml ARABELLA ALEXANDER MD Jan 02, 2017 10:00
--- NOTE | 2017-01-02 10:38 | PDOC ---
CARDIO Progress Notes Date and Time Date of Service 01/02/2017 Time of Evaluation 1020 Subjective Subjective: No Chest Pain, No shortness of breath, No Palpitations, No Dizziness Vitals Vitals Vital Signs Date Time Temp Pulse Resp B/P Pulse Ox O2 Delivery O2 Flow Rate FiO2 01/02/17 09:51 72 123/61 01/02/17 07:50 98.4 18 96 Room Air 98.4 01/02/17 03:00 2.0 Weight Weight [ ] Input and Output Intake and Output Intake and Output 01/02/17 07:00 Intake Total 510 ml Output Total 660 ml Balance -150 ml Intake Oral 460 ml IV Total 50 ml Output Urine Total 660 ml # Voids 2 # Bowel Movements 4 Laboratory Labs Laboratory Tests Test 01/01/17 11:59 01/01/17 16:09 01/01/17 21:21 01/02/17 04:08 Glucose (Fingerstick) 83mg/dL (70-99) 171mg/dL (70-99) 135mg/dL (70-99) White Blood Count 9.8x10^3/uL (4.0-11.0) Red Blood Count 3.74x10^6/uL (3.50-5.40) Hemoglobin 10.4g/dL (12.0-15.5) Hematocrit 31.3% (36.0-47.0) Mean Corpuscular Volume 84fL (79-100) Mean Corpuscular Hemoglobin 28pg (25-35) Mean Corpuscular Hemoglobin Concent 33g/dL (31-37) Red Cell Distribution Width 16.7% (11.5-14.5) Platelet Count 318x10^3/uL (140-400) Neutrophils (%) (Auto) 76% (31-73) Lymphocytes (%) (Auto) 13% (24-48) Monocytes (%) (Auto) 8% (0-9) Eosinophils (%) (Auto) 3% (0-3) Basophils (%) (Auto) 1% (0-3) Neutrophils # (Auto) 7.5x10^3uL (1.8-7.7) Lymphocytes # (Auto) 1.2x10^3/uL (1.0-4.8) Monocytes # (Auto) 0.7x10^3/uL (0.0-1.1) Eosinophils # (Auto) 0.3x10^3/uL (0.0-0.7) Basophils # (Auto) 0.1x10^3/uL (0.0-0.2) Sodium Level 138mmol/L (136-145) Potassium Level 3.7mmol/L (3.5-5.1) Chloride Level 99mmol/L (98-107) Carbon Dioxide Level 34mmol/L (21-32) Anion Gap 5 (6-14) Blood Urea Nitrogen 32mg/dL (7-20) Creatinine 1.2mg/dL (0.6-1.0) Estimated GFR (Cockcroft-Gault) 42.8 BUN/Creatinine Ratio 27 (6-20) Glucose Level 160mg/dL (70-99) Calcium Level 9.7mg/dL (8.5-10.1) Total Bilirubin 0.3mg/dL (0.2-1.0) Aspartate Amino Transf (AST/SGOT) 14U/L (15-37) Alanine Aminotransferase (ALT/SGPT) 12U/L (14-59) Alkaline Phosphatase 94U/L (46-116) Total Protein 6.4g/dL (6.4-8.2) Albumin 2.5g/dL (3.4-5.0) Albumin/Globulin Ratio 0.6 (1.0-1.7) Test 01/02/17 08:08 Glucose (Fingerstick) 79mg/dL (70-99) Microbiology Micro Microbiology 12/28/16 Urine Culture - Final, Complete 12/28/16 Urine Culture Result 1 ([facility]NON) - Final, Complete 12/28/16 Antimicrobic Susceptibility - Final, Complete Physical Exam HEENT: Neck Supple W Full Motion Chest: Symmetric LUNGS: Clear to Auscultation, Other (faint basilar crackles) Heart: S1S2, RRR (SR occasional PVCs) Extremities: No Edema, No Calf Tenderness Neurology: alert, oriented, follow commands Assessment Assessment 1. Acute systolic CHF/ischemic cardiomyopathy: clinically compensated 2. CAD/NSTEMI/3VD 3. Accelerated HTN 4. HLP/DM2 5. Hypoglycemia Recommendations 1. Continue with secondary prevention including DAPT. 2. Again confirmed with daughter and pt that medical treatment only, no invasive procedures. 3. Reinforce to maintain po hydration adequacy 2 to 2.5 L fluid restriction. Bumex/zaroxylyn. Daily K supplement 4. BP much better controlled, continue with current regimen 5. Avoid tight BG control 6. Discussed BP home monitoring and daily weight 7. Follow up in office as scheduled. GARETH BAZAN APRN Jan 02, 2017 10:37
[2017-01-02] MEDS: POTASSIUM CHLORIDE 20 MEQ TABLET.ER. PO SCH (12:12)
[2017-01-02] MEDS: ISOSORBIDE MONONITRATE ER 30 MG TAB.ER.24H PO SCH (12:14)
--- NOTE | 2017-01-02 12:41 | RAD ---
Portable chest, 01/02/2017: History: Congestive heart failure. Comparison is made to a study from 12/31/2016. The heart size is unchanged. The pulmonary vascularity has improved and is much better defined. Basilar infiltrates and pleural effusions have partially cleared. No new abnormality is detected. IMPRESSION: Resolving congestive heart failure with small residual pleural effusions and basilar atelectasis/infiltrate, right greater than left.
[2017-01-02] MEDS: ENOXAPARIN 40 MG/0.4 ML DISP.SYRIN. SQ SCH (15:56)
[2017-01-02] MEDS: FAMOTIDINE 20 MG TABLET. PO SCH (20:43)
[2017-01-02] MEDS: AMITRIPTYLINE HCL 25 MG TABLET PO SCH (20:44)
[2017-01-02] MEDS: ATORVASTATIN CALCIUM 20 MG TABLET PO SCH (20:44)
[2017-01-02] MEDS: INSULIN DETEMIR 300 UNITS/3 ML INSULN.PEN. SQ SCH (20:51)
[2017-01-02] MEDS ORDERED: BUME1TAB PO (22:33)
[2017-01-02] MEDS ORDERED: ISOS30TA4 PO (22:33)
[2017-01-02] MEDS ORDERED: LISI40TA PO (22:33)
[2017-01-02] MEDS ORDERED: POTA20TA4 PO (22:33)
[2017-01-02] MEDS ORDERED: METO2.5T PO (22:33)
[2017-01-02] MEDS ORDERED: ATOR20TA58 PO (22:33)
[2017-01-03 02:01] VITALS: BP 133/59
[2017-01-03 05:33] LABS: ALBUMIN 2.5 g/dL (3.4-5.0); ALBUMIN/GLOBULIN RATIO 0.6 (1.0-1.7); CALCIUM 9.3 mg/dL (8.5-10.1); CREATININE 1.5 mg/dL (0.6-1.0); GFR 33.1; POTASSIUM 4.2 mmol/L (3.5-5.1); TOTAL BILIRUBIN 0.3 mg/dL (0.2-1.0); TOTAL PROTEIN 6.8 g/dL (6.4-8.2)
[2017-01-03] MEDS: LEVOTHYROXINE 50 MCG TABLET PO SCH (06:27)
[2017-01-03 07:27] VITALS: BP 135/56
[2017-01-03] MEDS: INSULIN ASPART 300 UNITS/3 ML INSULN.PEN SQ SCH ×6 (07:30→16:30)
[2017-01-03] MEDS: LISINOPRIL 40 MG TABLET. PO SCH (09:00)
[2017-01-03] MEDS: MUPIROCIN 2 % TOPICAL CREAM 15GM TUBE. TP SCH ×3 (09:00→21:00)
[2017-01-03] MEDS: ISOSORBIDE MONONITRATE ER 30 MG TAB.ER.24H PO SCH (09:00)
[2017-01-03] MEDS: ASPIRIN ENTERIC COATED 81 MG TABLET.DR. PO SCH (09:03)
[2017-01-03] MEDS: PREGABALIN 50 MG CAPSULE PO SCH ×2 (09:03→21:49)
[2017-01-03] MEDS: FERROUS SULFATE 325 MG TABLET PO SCH (09:03)
[2017-01-03] MEDS: CETIRIZINE HCL 10 MG TABLET PO SCH (09:03)
[2017-01-03] MEDS: CLOPIDOGREL BISULFATE 75 MG TABLET PO SCH (09:03)
[2017-01-03] MEDS: LINAGLIPTIN 5 MG TABLET PO SCH (09:03)
[2017-01-03] MEDS: CALCIUM CARB/VIT D3 500/200 TABLET PO SCH ×2 (09:04→18:05)
[2017-01-03] MEDS: POTASSIUM CHLORIDE 20 MEQ TABLET.ER. PO SCH (09:04)
[2017-01-03] MEDS: CARVEDILOL 6.25 MG TABLET PO SCH ×2 (09:04→18:05)
[2017-01-03] MEDS: ANASTROZOLE 1 MG TABLET PO SCH (09:08)
[2017-01-03] MEDS: VANCOMYCIN 125 MG/2.5 ML ORAL SOLUTION. PO SCH ×4 (09:10→21:48)
--- NOTE | 2017-01-03 09:43 | PDOC ---
CARDIO Progress Notes Date and Time Date of Service 01/03/2017 Time of Evaluation 0920 Subjective Subjective: No Chest Pain, No shortness of breath, No Palpitations, No Dizziness Vitals Vitals Vital Signs Date Time Temp Pulse Resp B/P Pulse Ox O2 Delivery O2 Flow Rate FiO2 01/03/17 09:04 73 135/56 01/03/17 07:27 98.7 20 93 Nasal Cannula 3.0 98.7 Weight Weight [ ] Input and Output Intake and Output Intake and Output 01/03/17 07:00 Intake Total 1875 ml Output Total 1400 ml Balance 475 ml Intake Oral 1875 ml Output Urine Total 1400 ml # Voids 9 # Bowel Movements 5 Laboratory Labs Laboratory Tests Test 01/02/17 11:27 01/02/17 16:55 01/02/17 20:42 01/03/17 03:15 Glucose (Fingerstick) 172mg/dL (70-99) 82mg/dL (70-99) 223mg/dL (70-99) Sodium Level 138mmol/L (136-145) Potassium Level 4.2mmol/L (3.5-5.1) Chloride Level 100mmol/L (98-107) Carbon Dioxide Level 35mmol/L (21-32) Anion Gap 3 (6-14) Blood Urea Nitrogen 33mg/dL (7-20) Creatinine 1.5mg/dL (0.6-1.0) Estimated GFR (Cockcroft-Gault) 33.1 BUN/Creatinine Ratio 22 (6-20) Glucose Level 133mg/dL (70-99) Calcium Level 9.3mg/dL (8.5-10.1) Total Bilirubin 0.3mg/dL (0.2-1.0) Aspartate Amino Transf (AST/SGOT) 15U/L (15-37) Alanine Aminotransferase (ALT/SGPT) 15U/L (14-59) Alkaline Phosphatase 95U/L (46-116) Total Protein 6.8g/dL (6.4-8.2) Albumin 2.5g/dL (3.4-5.0) Albumin/Globulin Ratio 0.6 (1.0-1.7) Microbiology Micro Microbiology 12/28/16 Urine Culture - Final, Complete 12/28/16 Urine Culture Result 1 (VERNON) - Final, Complete 12/28/16 Antimicrobic Susceptibility - Final, Complete Physical Exam HEENT: Neck Supple W Full Motion, Other (No JVD) Chest: Symmetric LUNGS: Clear to Auscultation, Other (faint basilar crackles) Heart: S1S2, RRR (SR occasional PVCs), murmurs (3/6 systolic murmur to LLS border) Abdomen: Soft N/T Extremities: No Edema, No Calf Tenderness Neurology: alert, oriented, follow commands Assessment Assessment 1. Acute systolic CHF/ischemic cardiomyopathy: Appears to be in baseline weight. Clinically compensated 2. CAD/NSTEMI/3VD: no anginal symptoms. 3. Accelerated HTN: controlled 4. HLP/DM2 5. CKD3: Cr increasing to 1.5 Recommendations 1. DC lisinopril 40 mg for now. Will obtain renal duplex and rule out NAN 2. Will consider hydralazine/imdur combo. 3. Reinforce to maintain po hydration adequacy 2 to 2.5 L fluid restriction. Continue with bumex 4. BP much better controlled, continue with current regimen 5. Avoid tight BG control 6. Reinforced BP home monitoring and daily weight 7. Follow up in office as scheduled. 8. Agree with home health specializing in CHF 9. Possible DC this evening GARETH BAZAN APRN Jan 03, 2017 09:43
[2017-01-03 10:17] VITALS: BP 154/72
[2017-01-03] MEDS: BUMETANIDE 1 MG TABLET PO SCH (11:06)
--- NOTE | 2017-01-03 12:59 | PDOC ---
PULMONARY PROGRESS NOTES Subjective PT NOT SEEN Vitals Vital Signs Date Time Temp Pulse Resp B/P Pulse Ox O2 Delivery O2 Flow Rate FiO2 01/03/17 10:17 98.8 74 18 154/72 92 Room Air 98.8 01/03/17 08:00 2.0 HEENT: Other (nc at perrl, nose, throat clear) Labs Laboratory Tests Test 01/01/17 16:09 01/01/17 21:21 01/02/17 04:08 01/02/17 08:08 Glucose (Fingerstick) 171mg/dL (70-99) 135mg/dL (70-99) 79mg/dL (70-99) White Blood Count 9.8x10^3/uL (4.0-11.0) Red Blood Count 3.74x10^6/uL (3.50-5.40) Hemoglobin 10.4g/dL (12.0-15.5) Hematocrit 31.3% (36.0-47.0) Mean Corpuscular Volume 84fL (79-100) Mean Corpuscular Hemoglobin 28pg (25-35) Mean Corpuscular Hemoglobin Concent 33g/dL (31-37) Red Cell Distribution Width 16.7% (11.5-14.5) Platelet Count 318x10^3/uL (140-400) Neutrophils (%) (Auto) 76% (31-73) Lymphocytes (%) (Auto) 13% (24-48) Monocytes (%) (Auto) 8% (0-9) Eosinophils (%) (Auto) 3% (0-3) Basophils (%) (Auto) 1% (0-3) Neutrophils # (Auto) 7.5x10^3uL (1.8-7.7) Lymphocytes # (Auto) 1.2x10^3/uL (1.0-4.8) Monocytes # (Auto) 0.7x10^3/uL (0.0-1.1) Eosinophils # (Auto) 0.3x10^3/uL (0.0-0.7) Basophils # (Auto) 0.1x10^3/uL (0.0-0.2) Sodium Level 138mmol/L (136-145) Potassium Level 3.7mmol/L (3.5-5.1) Chloride Level 99mmol/L (98-107) Carbon Dioxide Level 34mmol/L (21-32) Anion Gap 5 (6-14) Blood Urea Nitrogen 32mg/dL (7-20) Creatinine 1.2mg/dL (0.6-1.0) Estimated GFR (Cockcroft-Gault) 42.8 BUN/Creatinine Ratio 27 (6-20) Glucose Level 160mg/dL (70-99) Calcium Level 9.7mg/dL (8.5-10.1) Total Bilirubin 0.3mg/dL (0.2-1.0) Aspartate Amino Transf (AST/SGOT) 14U/L (15-37) Alanine Aminotransferase (ALT/SGPT) 12U/L (14-59) Alkaline Phosphatase 94U/L (46-116) Total Protein 6.4g/dL (6.4-8.2) Albumin 2.5g/dL (3.4-5.0) Albumin/Globulin Ratio 0.6 (1.0-1.7) Test 01/02/17 11:27 01/02/17 16:55 01/02/17 20:42 01/03/17 03:15 Glucose (Fingerstick) 172mg/dL (70-99) 82mg/dL (70-99) 223mg/dL (70-99) Sodium Level 138mmol/L (136-145) Potassium Level 4.2mmol/L (3.5-5.1) Chloride Level 100mmol/L (98-107) Carbon Dioxide Level 35mmol/L (21-32) Anion Gap 3 (6-14) Blood Urea Nitrogen 33mg/dL (7-20) Creatinine 1.5mg/dL (0.6-1.0) Estimated GFR (Cockcroft-Gault) 33.1 BUN/Creatinine Ratio 22 (6-20) Glucose Level 133mg/dL (70-99) Calcium Level 9.3mg/dL (8.5-10.1) Total Bilirubin 0.3mg/dL (0.2-1.0) Aspartate Amino Transf (AST/SGOT) 15U/L (15-37) Alanine Aminotransferase (ALT/SGPT) 15U/L (14-59) Alkaline Phosphatase 95U/L (46-116) Total Protein 6.8g/dL (6.4-8.2) Albumin 2.5g/dL (3.4-5.0) Albumin/Globulin Ratio 0.6 (1.0-1.7) Test 01/03/17 11:09 Glucose (Fingerstick) 74mg/dL (70-99) Laboratory Tests Test 01/02/17 16:55 01/02/17 20:42 01/03/17 03:15 01/03/17 11:09 Glucose (Fingerstick) 82mg/dL (70-99) 223mg/dL (70-99) 74mg/dL (70-99) Sodium Level 138mmol/L (136-145) Potassium Level 4.2mmol/L (3.5-5.1) Chloride Level 100mmol/L (98-107) Carbon Dioxide Level 35mmol/L (21-32) Anion Gap 3 (6-14) Blood Urea Nitrogen 33mg/dL (7-20) Creatinine 1.5mg/dL (0.6-1.0) Estimated GFR (Cockcroft-Gault) 33.1 BUN/Creatinine Ratio 22 (6-20) Glucose Level 133mg/dL (70-99) Calcium Level 9.3mg/dL (8.5-10.1) Total Bilirubin 0.3mg/dL (0.2-1.0) Aspartate Amino Transf (AST/SGOT) 15U/L (15-37) Alanine Aminotransferase (ALT/SGPT) 15U/L (14-59) Alkaline Phosphatase 95U/L (46-116) Total Protein 6.8g/dL (6.4-8.2) Albumin 2.5g/dL (3.4-5.0) Albumin/Globulin Ratio 0.6 (1.0-1.7) Medications Active Scripts Medications Dose Route/Sig Days Date Category Clindamycin Hcl 300 Mg Capsule 1 Cap PO TID 12/03/16 Reported Tylenol With Codeine #3 Tablet (Acetaminophen/Codeine Phosphate) 1 Each Tablet 1 Tab PO PRN Q12HRS PRN 12/03/16 Reported Loratadine 10 Mg Tablet 1 Tab PO DAILY 12/03/16 Reported Metformin Hcl 500 Mg Tablet 500 Mg PO BIDWMEALS 12/03/16 Reported Lasix (Furosemide) 20 Mg Tablet 1 Tab PO DAILY 12/03/16 Reported Novolog (Insulin Aspart) 100 Unit/1 Ml Vial 15 Unit SQ TIDBFRMEAL 12/03/16 Reported Lantus (Insulin Glargine,Hum.rec.anlog) 100 Unit/1 Ml Vial 30 Unit SQ HS 12/03/16 Reported Amitriptyline Hcl 25 Mg Tablet 2 Tab PO QHS 12/03/16 Reported Pepcid (Famotidine) 40 Mg Tablet 40 Mg PO HS 12/03/16 Reported Lisinopril 2.5 Mg Tablet 1 Tab PO DAILY 12/03/16 Reported Tradjenta (Linagliptin) 5 Mg Tablet 1 Tab PO DAILY 12/03/16 Reported Clopidogrel (Clopidogrel Bisulfate) 75 Mg Tablet 1 Tab PO DAILY 12/03/16 Reported Synthroid (Levothyroxine Sodium) 50 Mcg Tablet 1 Tab PO DAILY06 12/03/16 Reported Lyrica (Pregabalin) 50 Mg Capsule 1 Cap PO BID 12/03/16 Reported Docusate Sodium 100 Mg Tablet 100 Mg PO PRN QEVNG PRN 12/03/16 Reported Zyvox (Linezolid) 600 Mg Tablet 600 Mg PO BID 12/03/16 Reported Iron (Ferrous Sulfate) 325 Mg Capsule.er 2 Tab PO DAILY 12/03/16 Reported Arimidex (Anastrozole) 1 Mg Tablet 1 Tab PO DAILY 12/03/16 Reported Bactroban Cream (Mupirocin) 15 Gm Cream..g. 1 Joe TP TID 12/03/16 Reported Caltrate 600 + D Tablet (Calcium Carbonate/Vitamin D3) 1 Each Tablet 1 Each PO BID 12/03/16 Reported Aspir 81 (Aspirin) 81 Mg Tablet. 1 Tab PO DAILY 12/03/16 Reported Impression . 1. Acute resp failure 2. Acute pulmonary edema. 3. Acute systolic versus diastolic congestive heart failure. 4. Abnormal chest x-ray. 6. Coronary artery disease. 7. Peripheral vascular disease. 8. Status post amputation. 9. History of osteomyelitis. 10. Diabetes mellitus. 11. Hypertension. 12. History of breast cancer. 13. Hypothyroidism. Plan . REPEAT CXR BETTER SPOKE DR ALEXANDER WILL SEE PRN THANKS HENNA VELÁSQUEZ MD Jan 03, 2017 12:59
[2017-01-03 14:05] VITALS: BP 144/61
--- NOTE | 2017-01-03 15:35 | PDOC ---
PROGRESS NOTES Subjective Subjective feels good ,want to go home Objective Objective Vital Signs Date Time Temp Pulse Resp B/P Pulse Ox O2 Delivery O2 Flow Rate FiO2 01/03/17 14:05 74 18 144/61 94 Nasal Cannula 2.0 01/03/17 10:17 98.8 98.8 Intake and Output 01/03/17 07:00 Intake Total 1875 ml Output Total 1400 ml Balance 475 ml Intake Oral 1875 ml Output Urine Total 1400 ml # Voids 9 # Bowel Movements 5 Physical Exam Abdomen: Normal bowel sounds, Soft Heart: Regular rate, Normal S1 Extremities: No clubbing, No cyanosis General: Alert HEENT: Atraumatic Lungs: Clear to auscultation MUSCULOSKELETAL: No deformity Neck: Supple Neuro: Normal speech Psych/Mental Status: Mood NL Skin: No rashes, Other (foot ulcer lt over 5 th toe site) Diagnosis Problem List Problems Medical Problems: (1) Acute on chronic congestive heart failure Status: Acute (2) Acute respiratory distress Status: Acute (3) Hypoxia Status: Acute (4) Malignant hypertension Status: Acute (5) Pulmonary edema Status: Acute (6) Severe protein-calorie malnutrition Status: Acute (7) Type 2 diabetes mellitus Status: Acute Assessment Assessment cr 1.5 high today. 1. Acute pulmonary edema, improved, 3 vessel cad 2. Diabetes mellitus type 2, not controlled. 3. Peripheral vascular disease. 4. Glaucoma. 5. Hypertension. 6. Hyperlipidemia. 7. Recent amputation of the left fifth toe for chronic osteomyelitis. The patient has had blockage of the previous bypass graft. PLAN: renal artery doppler today started on imdur. d/c plans for today bumex+ po. medical treatment . d/c home with home health aggressive diuresis . treat for c diff po vancomycin. spoke with daughter. wounds lt foot improving Problems: Plan Plan of Care Problems Medical Problems: (1) Acute on chronic congestive heart failure Status: Acute (2) Acute respiratory distress Status: Acute (3) Hypoxia Status: Acute (4) Malignant hypertension Status: Acute (5) Pulmonary edema Status: Acute (6) Severe protein-calorie malnutrition Status: Acute (7) Type 2 diabetes mellitus Status: Acute Comment Review of Relevant I have reviewed the following items sheldon (where applicable) has been applied. Labs Laboratory Tests Test 01/02/17 16:55 01/02/17 20:42 01/03/17 03:15 01/03/17 11:09 Glucose (Fingerstick) 82mg/dL (70-99) 223mg/dL (70-99) 74mg/dL (70-99) Sodium Level 138mmol/L (136-145) Potassium Level 4.2mmol/L (3.5-5.1) Chloride Level 100mmol/L (98-107) Carbon Dioxide Level 35mmol/L (21-32) Anion Gap 3 (6-14) Blood Urea Nitrogen 33mg/dL (7-20) Creatinine 1.5mg/dL (0.6-1.0) Estimated GFR (Cockcroft-Gault) 33.1 BUN/Creatinine Ratio 22 (6-20) Glucose Level 133mg/dL (70-99) Calcium Level 9.3mg/dL (8.5-10.1) Total Bilirubin 0.3mg/dL (0.2-1.0) Aspartate Amino Transf (AST/SGOT) 15U/L (15-37) Alanine Aminotransferase (ALT/SGPT) 15U/L (14-59) Alkaline Phosphatase 95U/L (46-116) Total Protein 6.8g/dL (6.4-8.2) Albumin 2.5g/dL (3.4-5.0) Albumin/Globulin Ratio 0.6 (1.0-1.7) Test 01/03/17 14:02 Glucose (Fingerstick) 80mg/dL (70-99) Microbiology 12/28/16 Urine Culture - Final, Complete 12/28/16 Urine Culture Result 1 (VERNON) - Final, Complete 12/28/16 Antimicrobic Susceptibility - Final, Complete 01/02/17 Gram Stain - Final, Complete Vitals/I & O Vital Sign - Last 24 Hours 01/02/17 01/02/17 01/02/17 01/02/17 15:46 16:50 19:55 20:00 Temp 97.7 97.7 Pulse 66 66 Resp 18 B/P 90/44 117/56 Pulse Ox 100 O2 Delivery Nasal Cannula Nasal Cannula Nasal Cannula O2 Flow Rate 2.0 3.0 3.0 01/02/17 01/02/17 01/03/17 01/03/17 21:15 23:15 02:01 07:27 Temp 97.9 97.9 98.2 98.7 97.9 97.9 98.2 98.7 Pulse 68 68 66 73 Resp 20 20 20 20 B/P 145/62 145/62 133/59 135/56 Pulse Ox 96 96 96 93 O2 Delivery Nasal Cannula Nasal Cannula Nasal Cannula Nasal Cannula O2 Flow Rate 3.0 3.0 3.0 3.0 01/03/17 01/03/17 01/03/17 01/03/17 08:00 09:04 10:17 14:05 Temp 98.8 98.8 Pulse 73 74 74 Resp 18 18 B/P 135/56 154/72 144/61 Pulse Ox 92 94 O2 Delivery Nasal Cannula Room Air Nasal Cannula O2 Flow Rate 2.0 2.0 Intake and Output 01/02/17 01/02/17 01/03/17 15:00 23:00 07:00 Intake Total 1775 ml 100 ml Output Total 1400 ml Balance 1775 ml -1300 ml ARABELLA ALEXANDER MD Jan 03, 2017 15:35
--- NOTE | 2017-01-03 18:05 | RAD ---
INDICATION: Hypertension COMPARISON: None. TECHNIQUE: Grayscale and color ultrasound images obtained of the bilateral kidneys Additionally spectral Doppler ultrasound images obtained of renal artery vasculature FINDINGS: Right Kidney: 9.8 cm. No hydronephrosis. Left Kidney: 11 cm. No hydronephrosis. Doppler findings: Peak systolic velocities are in centimeters per second. Abdominal aorta 74 Right renal artery 151, renal artery to aortic ratio 2.0. Left renal artery 80, renal artery to aortic ratio 1.1. Proximal renal arteries are not well seen bilaterally Right renal vein partially seen with vascular flow. Left renal vein partially seen with vascular flow. IMPRESSION: No hydronephrosis. Mildly prominent velocity in the midportion of right renal artery but no severely elevated velocities or renal artery to aortic ratio to suggest a high-grade stenosis.
[2017-01-03] MEDS: ENOXAPARIN 40 MG/0.4 ML DISP.SYRIN. SQ SCH (18:06)
[2017-01-03 18:53] VITALS: BP 133/63
[2017-01-03 21:40] VITALS: BP 155/62
[2017-01-03] MEDS: FAMOTIDINE 20 MG TABLET. PO SCH (21:48)
[2017-01-03] MEDS: AMITRIPTYLINE HCL 25 MG TABLET PO SCH (21:49)
[2017-01-03] MEDS: ATORVASTATIN CALCIUM 20 MG TABLET PO SCH (21:50)
[2017-01-03] MEDS: HYDRALAZINE 25 MG TABLET PO SCH (21:50)
[2017-01-03] MEDS: INSULIN DETEMIR 300 UNITS/3 ML INSULN.PEN. SQ SCH (21:58)
[2017-01-04 03:15] VITALS: BP 117/51
[2017-01-04 04:05] LABS: ALBUMIN 2.6 g/dL (3.4-5.0); ALBUMIN/GLOBULIN RATIO 0.6 (1.0-1.7); CREATININE 1.2 mg/dL (0.6-1.0); GFR 42.8; POTASSIUM 4.8 mmol/L (3.5-5.1); TOTAL BILIRUBIN 0.3 mg/dL (0.2-1.0); TOTAL PROTEIN 6.9 g/dL (6.4-8.2)
[2017-01-04] MEDS: LEVOTHYROXINE 50 MCG TABLET PO SCH (06:19)
[2017-01-04 07:10] VITALS: BP 88/44
[2017-01-04] MEDS: INSULIN ASPART 300 UNITS/3 ML INSULN.PEN SQ SCH ×4 (07:30→11:30)
[2017-01-04] MEDS: CARVEDILOL 6.25 MG TABLET PO SCH (08:00)
[2017-01-04] MEDS ORDERED: POTASSIUM CHLORIDE 10 MEQ TABLET.ER. PO SCH (08:00)
[2017-01-04] MEDS: ANASTROZOLE 1 MG TABLET PO SCH (09:00)
[2017-01-04] MEDS: HYDRALAZINE 25 MG TABLET PO SCH ×2 (09:00→14:00)
[2017-01-04] MEDS: CETIRIZINE HCL 10 MG TABLET PO SCH (09:00)
[2017-01-04] MEDS: ISOSORBIDE MONONITRATE ER 30 MG TAB.ER.24H PO SCH (09:00)
[2017-01-04] MEDS: MUPIROCIN 2 % TOPICAL CREAM 15GM TUBE. TP SCH ×2 (09:00→14:00)
[2017-01-04] MEDS: CLOPIDOGREL BISULFATE 75 MG TABLET PO SCH (09:43)
[2017-01-04] MEDS: ASPIRIN ENTERIC COATED 81 MG TABLET.DR. PO SCH (09:44)
[2017-01-04] MEDS: BUMETANIDE 1 MG TABLET PO SCH (09:44)
[2017-01-04] MEDS: FERROUS SULFATE 325 MG TABLET PO SCH (09:44)
[2017-01-04] MEDS: CALCIUM CARB/VIT D3 500/200 TABLET PO SCH (09:44)
[2017-01-04] MEDS: PREGABALIN 50 MG CAPSULE PO SCH (09:45)
[2017-01-04] MEDS: LINAGLIPTIN 5 MG TABLET PO SCH (09:45)
[2017-01-04] MEDS: VANCOMYCIN 125 MG/2.5 ML ORAL SOLUTION. PO SCH ×2 (09:52→13:00)
--- NOTE | 2017-01-04 11:35 | PDOC ---
PROGRESS NOTES Subjective Subjective bp low tody holding some of BP meds Objective Objective Vital Signs Date Time Temp Pulse Resp B/P Pulse Ox O2 Delivery O2 Flow Rate FiO2 01/04/17 08:00 Nasal Cannula 2.0 01/04/17 07:10 98.9 65 18 88/44 94 98.9 Intake and Output 01/04/17 07:00 Intake Total 680 ml Output Total 1750 ml Balance -1070 ml Intake Oral 680 ml Output Urine Total 1750 ml Physical Exam Abdomen: Normal bowel sounds, Soft Heart: Regular rate, Normal S1 Extremities: No clubbing, No cyanosis General: Alert HEENT: Atraumatic Lungs: Clear to auscultation MUSCULOSKELETAL: No deformity Neck: Supple Neuro: Normal speech Psych/Mental Status: Mood NL Skin: No rashes, Other (foot ulcer lt over 5 th toe site) Diagnosis Problem List Problems Medical Problems: (1) Acute on chronic congestive heart failure Status: Acute (2) Acute respiratory distress Status: Acute (3) Hypoxia Status: Acute (4) Malignant hypertension Status: Acute (5) Pulmonary edema Status: Acute (6) Severe protein-calorie malnutrition Status: Acute (7) Type 2 diabetes mellitus Status: Acute Assessment Assessment hypoxia on walking 85% on RA on 6 mts walk cr 1.3 today improved. 1. Acute pulmonary edema, improved, 3 vessel cad 2. Diabetes mellitus type 2, not controlled. 3. Peripheral vascular disease. 4. Glaucoma. 5. Hypertension. 6. Hyperlipidemia. 7. Recent amputation of the left fifth toe for chronic osteomyelitis. The patient has had blockage of the previous bypass graft. PLAN: d/c home on oxygen. home health BP monitor for home use renal artery doppler- no stenosis started on imdur. d/c plans for today bumex+ po. medical treatment . d/c home with home health aggressive diuresis . treat for c diff po vancomycin. spoke with daughter. wounds lt foot improving Problems: Plan Plan of Care Problems Medical Problems: (1) Acute on chronic congestive heart failure Status: Acute (2) Acute respiratory distress Status: Acute (3) Hypoxia Status: Acute (4) Malignant hypertension Status: Acute (5) Pulmonary edema Status: Acute (6) Severe protein-calorie malnutrition Status: Acute (7) Type 2 diabetes mellitus Status: Acute Comment Review of Relevant I have reviewed the following items sheldon (where applicable) has been applied. Labs Laboratory Tests Test 01/03/17 14:02 01/03/17 16:39 01/04/17 03:05 01/04/17 08:05 Glucose (Fingerstick) 80mg/dL (70-99) 144mg/dL (70-99) 97mg/dL (70-99) Sodium Level 136mmol/L (136-145) Potassium Level 4.8mmol/L (3.5-5.1) Chloride Level 97mmol/L (98-107) Carbon Dioxide Level 34mmol/L (21-32) Anion Gap 5 (6-14) Blood Urea Nitrogen 37mg/dL (7-20) Creatinine 1.2mg/dL (0.6-1.0) Estimated GFR (Cockcroft-Gault) 42.8 BUN/Creatinine Ratio 31 (6-20) Glucose Level 170mg/dL (70-99) Calcium Level 10.0mg/dL (8.5-10.1) Total Bilirubin 0.3mg/dL (0.2-1.0) Aspartate Amino Transf (AST/SGOT) 18U/L (15-37) Alanine Aminotransferase (ALT/SGPT) 18U/L (14-59) Alkaline Phosphatase 100U/L (46-116) Total Protein 6.9g/dL (6.4-8.2) Albumin 2.6g/dL (3.4-5.0) Albumin/Globulin Ratio 0.6 (1.0-1.7) Microbiology 12/28/16 Urine Culture - Final, Complete 12/28/16 Urine Culture Result 1 (VERNON) - Final, Complete 12/28/16 Antimicrobic Susceptibility - Final, Complete 01/02/17 Gram Stain - Final, Complete Medications Current Medications Hydralazine HCl (Apresoline) 25 mg TID PO Last administered on 01/03/17 21:50 ; Start 01/03/17 at 21:00 Potassium Chloride (Klor-Con) 10 meq [id number] PO Last administered on 09:44; Start 01/04/17 at 08:00 Vitals/I & O Vital Sign - Last 24 Hours 01/03/17 01/03/17 01/03/17 01/03/17 14:05 18:05 18:53 20:00 Temp 98.0 98.0 Pulse 74 74 78 Resp 18 20 B/P 144/61 144/61 133/63 Pulse Ox 94 98 O2 Delivery Nasal Cannula Nasal Cannula Nasal Cannula O2 Flow Rate 2.0 2.0 2.0 01/03/17 01/03/17 01/03/17 01/04/17 21:40 21:50 23:00 03:15 Temp 98.2 99.5 98.2 99.5 Pulse 74 74 73 73 Resp 18 20 B/P 155/62 155/62 117/51 Pulse Ox 99 94 O2 Delivery Nasal Cannula Nasal Cannula O2 Flow Rate 2.0 2.0 01/04/17 01/04/17 07:10 08:00 Temp 98.9 98.9 Pulse 65 Resp 18 B/P 88/44 Pulse Ox 94 O2 Delivery Nasal Cannula Nasal Cannula O2 Flow Rate 2.0 2.0 Intake and Output 01/03/17 01/03/17 01/04/17 15:00 23:00 07:00 Intake Total 240 ml 240 ml 200 ml Output Total 550 ml 500 ml 700 ml Balance -310 ml -260 ml -500 ml ARABELLA ALEXANDER MD Jan 04, 2017 11:35
[2017-01-04 11:54] VITALS: BP 153/49
[2017-01-04 14:00] VITALS: BP 153/49
== END 2017-01-04 17:12 | disposition home health service (06) | DRG 189 ==
LOC: ER 05:50 → ED HOLD 06:33 → 2 NORTH 17:35
PROVIDERS: ADMIT Internal Medicine; ATTEND Internal Medicine
DX: J96.01 Acute respiratory failure with hypoxia (principal); I50.23 Acute on chronic systolic (congestive) heart failure; E43 Unspecified severe protein-calorie malnutrition; I13.0 Hypertensive heart and chronic kidney disease with heart failure and stage 1 through stage 4 chronic kidney disease, or unspecified chronic kidney disease; I16.9 Hypertensive crisis, unspecified; M86.679 Other chronic osteomyelitis, unspecified ankle and foot; E03.9 Hypothyroidism, unspecified; E11.22 Type 2 diabetes mellitus with diabetic chronic kidney disease; E11.51 Type 2 diabetes mellitus with diabetic peripheral angiopathy without gangrene; E11.649 Type 2 diabetes mellitus with hypoglycemia without coma; E11.65 Type 2 diabetes mellitus with hyperglycemia; E11.69 Type 2 diabetes mellitus with other specified complication; E78.5 Hyperlipidemia, unspecified; H40.9 Unspecified glaucoma; I25.10 Atherosclerotic heart disease of native coronary artery without angina pectoris; I25.5 Ischemic cardiomyopathy; E05.90 Thyrotoxicosis, unspecified without thyrotoxic crisis or storm; F32.9 Major depressive disorder, single episode, unspecified; F41.9 Anxiety disorder, unspecified; M19.90 Unspecified osteoarthritis, unspecified site; N18.3 Chronic kidney disease, stage 3 (moderate); I25.2 Old myocardial infarction; Z82.49 Family history of ischemic heart disease and other diseases of the circulatory system; Z79.4 Long term (current) use of insulin; Z85.3 Personal history of malignant neoplasm of breast; Z90.10 Acquired absence of unspecified breast and nipple; Z90.12 Acquired absence of left breast and nipple; Z89.422 Acquired absence of other left toe(s); Z89.421 Acquired absence of other right toe(s); Z68.24 Body mass index [BMI] 24.0-24.9, adult
CPT/HCPCS: 36415; 36600; 71010; 76770; 80053; 81001; 82553; 82805; 82947; 83735; 83880; 84484; 85027; 87071; 87075; 87086; 87186; 87205; 87804; 93005; 94620; 96361; 96374; J0360; J1650; J1815; J1940; J3490; J7030; J7042; J7060; 99291-25